=== PATIENT | female | born 1960 ===

== ENCOUNTER 2017-11-26 02:05 | Inpatient (IN) | payer MEDICARE, OTHER ==
[2017-11-26 02:26] VITALS: O2SAT 100
--- NOTE | 2017-11-26 02:40 | ED PDOC ---
Arrival/HPI - General Chief Complaint: Medical Clearance Time Seen by Provider: 11/26/17 02:32 Historian: Patient - History of Present Illness Narrative History of Present Illness (Text): 11/26/17 02:39 Angélica Catalan is a 56 year old female, whose past medical history includes bipolar disorder, diabetes, and hypothyroidism, who presents to the Emergency department complaining of stress. Patient states she has been feeling stress for the past 4 days. Patient regularly takes [place], Haldol, and Cogentin and is requesting a Haldol injection. During questioning, patient laughs inappropriately at times. Patient denies any suicidal ideation, homicidal ideation, fever, chills, chest pain, shortness of breath, nausea, vomiting, diarrhea, urinary symptoms, back pain, neck pain, headache, dizziness, or any other complaints. Time/Duration: < week (4 days) Symptom Onset: Gradual Symptom Course: Unchanged Activities at Onset: Light Context: Home Past Medical History - Provider Review Nursing Documentation Reviewed: Yes - Reproductive Menopause: Yes - Pulmonary Hx Respiratory Disorders: No - HEENT Hx HEENT Disorder: No - Renal Hx Renal Disorder: No - Endocrine/Metabolic Hx Diabetes Mellitus Type 2: Yes Hx Hypothyroidism: Yes - Hematological/Oncological Hx Blood Disorders: No - Integumentary Hx Dermatological Disorder: No - Musculoskeletal/Rheumatological Hx Musculoskeletal Disorders: No - Gastrointestinal Hx Gastrointestinal Disorders: No - Genitourinary/Gynecological Hx Genitourinary Disorders: No - Psychiatric Hx Depression: Yes Hx Substance Use: No - Surgical History Hx Cholecystectomy: Yes Family/Social History - Physician Review Nursing Documentation Reviewed: Yes Family/Social History: Unknown Family HX Smoking Status: Former Smoker Hx Alcohol Use: No Hx Substance Use: No Allergies/Home Meds Allergies/Adverse Reactions: Allergies tomato Allergy (Verified 11/26/17 02:20) RASH Home Medications: Home Meds Medication Instructions Recorded Confirmed Unobtainable 11/26/17 11/26/17 Review of Systems - Physician Review All systems were reviewed & negative as marked: Yes - Review of Systems Constitutional: Normal. absent: Fevers Eyes: Normal ENT: Normal Respiratory: Normal. absent: SOB, Cough Cardiovascular: Normal. absent: Chest Pain Gastrointestinal: Normal. absent: Abdominal Pain, Diarrhea, Nausea, Vomiting Genitourinary Female: Normal. absent: Dysuria, Frequency, Hematuria, Urine Output Changes Musculoskeletal: Normal. absent: Back Pain, Neck Pain Skin: Normal. absent: Rash Neurological: Normal. absent: Headache, Dizziness Endocrine: Normal Hemo/Lymphatic: Normal Psychiatric: Other (+) Physical Exam Vital Signs Reviewed: Yes Vital Signs Temp Pulse Resp BP Pulse Ox 11/26/17 02:25 98.1 F 60 17 160/87 H 100 Temperature: Afebrile Blood Pressure: Normal Pulse: Regular Respiratory Rate: Normal Appearance: Positive for: Well-Appearing, Non-Toxic, Comfortable Pain Distress: None Mental Status: Positive for: Alert and Oriented X 3 - Systems Exam Head: Present: Atraumatic, Normocephalic Extroacular Muscles: Present: EOMI Conjunctiva: Present: Normal Mouth: Present: Moist Mucous Membranes Neck: Present: Normal Range of Motion Respiratory/Chest: Present: Clear to Auscultation, Good Air Exchange. No: Respiratory Distress, Accessory Muscle Use Cardiovascular: Present: Regular Rate and Rhythm, Normal S1, S2. No: Murmurs Abdomen: Present: Normal Bowel Sounds. No: Tenderness, Distention, Peritoneal Signs Back: Present: Normal Inspection Upper Extremity: Present: Normal Inspection. No: Cyanosis, Edema Lower Extremity: Present: Normal Inspection. No: Edema Neurological: Present: GCS=15, CN II-XII Intact, Speech Normal Skin: Present: Warm, Dry, Normal Color. No: Rashes Psychiatric: Present: Alert, Oriented x 3, Normal Insight, Normal Concentration Medical Decision Making ED Course and Treatment: 11/26/17 02:40 Impression: 56 year old female complaining of stress, requesting Haldol injection. Plan: -- EKG -- Labs, alcohol level -- Urinalysis, urine drug screen -- Reassess and disposition Progress Notes: Reviewed EKG, sinus bradycardia at [address]-segment elevations or depressions, no T-wave inversions, normal intervals. 11/26/17 06:11 Pt was seen and evaluated by UZAIR Madden, who discussed case with psychiatrist professional application designer. Pt will be admitted to Behavioral Health for bipolar affective disorder under Dr. Thorpe's service. - Lab Interpretations Lab Results: 11/26/17 02:50 11/26/17 02:50 Lab Results 11/26/17 02:54: Urine Opiates Screen Negative, Urine Methadone Screen Negative, Ur Barbiturates Screen Negative, Ur Phencyclidine Scrn Negative, Ur Amphetamines Screen Negative, U Benzodiazepines Scrn Negative, U Oth Cocaine Metabols Negative, U Cannabinoids Screen Negative 11/26/17 02:50: Alcohol, Quantitative < 10 11/26/17 02:50: WBC 9.2, RBC 4.47, Hgb 13.7, Hct 40.9, MCV 91.5, MCH 30.6, MCHC 33.5, RDW 14.4, Plt Count 377, MPV 9.7 11/26/17 02:50: Sodium 142, Potassium 3.9, Chloride 102, Carbon Dioxide 27, Anion Gap 17, BUN 11, Creatinine 0.5 L, Est GFR ( Amer) > 60, Est GFR ( Non-Af Amer) > 60, Random Glucose 119 H, Calcium 10.2, Total Bilirubin 1.2, AST 39 H, ALT 50, Alkaline Phosphatase 98, Total Protein 8.5 H, Albumin 4.8, Globulin 3.8, Albumin/Globulin Ratio 1.3 I have reviewed the lab results: Yes - EKG Interpretation Interpreted by ED Physician: Yes Type: 12 lead EKG - Scribe Statement The provider has reviewed the documentation as recorded by the Bryant Solorzano Provider Scribe Attestation: All medical record entries made by the Jujuibe were at my direction and personally dictated by me. I have reviewed the chart and agree that the record accurately reflects my personal performance of the history, physical exam, medical decision making, and the department course for this patient. I have also personally directed, reviewed, and agree with the discharge instructions and disposition. Disposition/Present on Arrival - Present on Arrival Any Indicators Present on Arrival: No History of DVT/PE: No History of Uncontrolled Diabetes: No Urinary Catheter: No History of Decub. Ulcer: No History Surgical Site Infection Following: None - Disposition Have Diagnosis and Disposition been Completed?: Yes Diagnosis: Bipolar affective disorder Disposition: HOSPITALIZED Disposition Time: 06:17 Patient Plan: Admission Condition: STABLE Forms: [employer] (Indonesian)
[2017-11-26 03:36] LABS: HEMOGLOBIN 13.7 g/dL (12.0-16.0); MEAN CELL VOLUME 91.5 fl (80.0-105.0); MEAN CORPUSCULAR HEMOGLOBIN 30.6 pg (25.0-35.0); MEAN CORPUSCULAR HGB CONC 33.5 g/dl (31.0-37.0); MEAN PLATELET VOLUME 9.7 fl (7.0-11.0); RBC 4.47 10^6/uL (3.5-6.1); RED CELL DISTRIBUTION WIDTH 14.4 % (11.5-14.5); WHITE BLOOD COUNT 9.2 10^3/ul (4.5-11.0)
[2017-11-26 03:47] LABS: ALBUMIN 4.8 g/dL (3.0-4.8); ALT/SGPT 50 U/L (7-56); AST/SGOT 39 U/L (14-36); BLOOD UREA NITROGEN 11 mg/dL (7-21); CALCIUM 10.2 mg/dL (8.4-10.5); GFR AFRICAN-AMERICAN > 60; GFR NON-AFRICAN AMERICAN > 60
[2017-11-26 03:48] LABS: ALB/GLOB RATIO 1.3 (1.1-1.8)
[2017-11-26 04:04] LABS: BARBITURATES, UR NEGATIVE (NEGATIVE); BENZODIAZEPINES, UR NEGATIVE (NEGATIVE); OPIATES, UR NEGATIVE (NEGATIVE); PHENCYCLIDINE, UR NEGATIVE (NEGATIVE)
[2017-11-26 07:06] LABS: URINE BILIRUBIN NEGATIVE (NEGATIVE); URINE BLOOD TRACE-INTACT (NEGATIVE); URINE GLUCOSE (UA) NEGATIVE (NEGATIVE); URINE LEUKOCYTE ESTERASE MODERATE Leu/uL (NEGATIVE); URINE NITRATE NEGATIVE (NEGATIVE); URINE PROTEIN NEGATIVE mg/dL (<30 mg/dL); URINE UROBILINOGEN 0.2 E.U./dL (<1 E.U./dL)
[2017-11-26 07:16] LABS: URINE APPEARANCE SL CLOUDY (CLEAR); URINE COLOR YELLOW (YELLOW)
[2017-11-26 07:19] LABS: URINE BACTERIA RARE (NEG); URINE RBC 0 - 2 /hpf (0-2)
--- NOTE | 2017-11-26 08:36 | RAD ---
HISTORY: medical clearance COMPARISON: No prior. FINDINGS: LUNGS: No active pulmonary disease. PLEURA: No significant pleural effusion identified, no pneumothorax apparent. CARDIOVASCULAR: Normal. OSSEOUS STRUCTURES: No significant abnormalities. VISUALIZED UPPER ABDOMEN: Normal. OTHER FINDINGS: None. IMPRESSION: No active disease.
[2017-11-26 10:42] LABS: FREE T4 1.34 ng/dL (0.78-2.19)
--- NOTE | 2017-11-26 14:58 | PCM.BM ---
Treatment Plan Problems - Problems identified on initial assessmt ALTERED THOUGHT PROCESS Date Initiated: 11/26/17 Time Initiated: 14:00 Assessment reference: NA Status: Active Priority: 1 ALTERED SLEEP PATTERN Date Initiated: 11/26/17 Time Initiated: 14:00 Assessment reference: NA Status: Active Priority: 2 INEFFECTIVE COPING Date Initiated: 11/26/17 Time Initiated: 14:00 Assessment reference: NA Status: Active Priority: 3 Treatment assets and liabiliti Patient Assests: cooperative, ADL independent, cognitively intact Patient Liabilities: poor support system, medical problems, language/speech - Milieu Protocol Maintain good personal hygiene: every shift Encourage regular showers, every shift Remind patient to perform daily oral care, every shift Assist patient to perform ADL's Maintain personal safety: every shift Educate patient to report safety concerns to staff, every shift Monitor environment for contraband/sharps Medication safety: Monitor for expected outcome, potential side effects: every shift, Assess barriers to learning: every shift, Assess readiness for medication education: every shift Family Contact Family involvement: Patient does not wish Family/SO involvement Discharge/Continuing Care - Education Needs Education Needs: Patient Medication, Patient Diagnosis/Disease Process, Patient Coping Skills, Patient Community resources, Patient Activities of Daily Living, Patient Nutrition, Patient Health Practices/Safety, Patient Personal Hygiene/ Grooming, Patient Aftercare Safety Plan - Discharge Discharge Criteria: Tolerates medication w/o severe side effects, Free of paranoid thoughts, Free of agitation, Normal sleep pattern, Ability to care for self, No longer exhibiting s/s of withdrawal, Reduction of target symptoms Discharge to:: Home
--- NOTE | 2017-11-26 16:00 | PCM.PSYCH ---
Initial Psychiatric Evaluation - Initial Psychiatric Evaluation Type of Admission: Voluntary Legal Status: Capacity (pt has a capacity to sign consent for treatment) Chief Complaint (in patient's own words): "I am single mother, I have a dementia, I suffer from sleeping problems, I also have financial problems, I need to call [place], when I am not well I sing or dance" of note pt was disorganized, difficulties to stay focused, going and going, answers were not related to the questions being asked. Patient's Reaction to Hospitalization: pt was admitted for evaluation and stabilization of disorganized thoughts and behavior, pt also has manic symptoms, pt deemed to be in danger to self and others, required acute psychiatric care. History of Present Illness and Precipitating Events: This is a 56 years old female, multiple psychiatric admissions (more than 15), most recent was in [facility] in October 2017, pt who lives with her son and currently unemployed, came to the emergency room for psychiatric evaluation, pt most likely was noncompliant with medications, presented to be bizarre and disorganized, needed to have psych admission. pt was seen at the [facility] area with Medical student, pt is [place] speaking and this medical writer utilized translation system [id number] pt presented with acceptable personal hygiene, good ADLs, pt presented to be disorganized, was laughing out loud with no obvious reasons, answers were not related to questions being asked, pt also presented with circumstantial and tangential thought process, but denied v/a/t hallucinations. For example:"I am single mother, I have a dementia, I suffer from sleeping problems, I also have financial problems, I need to call [place], when I am not well I sing or dance " pt had difficulties to stay focused, circumstantial and tangential thought process. pt denied being abused. pt denied feeing depress, but seems to be in manic stage, reported to feel irritable. pt denied using drugs, denied smoking since 2010. Past Psychiatric h/[place]: [facility] [place] [facility] [place]. Chronic non compliant with follow up and meds Pt was referred screener on 10/22, they were unable to locate pt for demonstrating bizarre behavior in [place] [facility] [place] another call on [place]20 about Pt, but because she was not a harm to self or others she was not admitted tot he hospital. h/o of elopement from the hospital. Pt goes by several names Angélica Suarez, and has several listed [place] [facility] [place] report from pt's pharmacy pt was on the following meds [id number]: prescribe by , last refilled November 19, thirty days supply was given, two refills left [place] 300 mg 3 times a day Haldol 5 mg twice a day Benztropine 1 mg twice a pt said that she is on Haldol Injectable form, does not know when was the last injection, does not know the dose, as per pharmacy pt is not on haldol Dec, was contacted at [facility] outpatient [facility], but he was not available, no RNs available to talk, pt is very poor and unreliable historian. prescribed by Dr.Leslie Alfonso: Metformin extended release 500mg po bid Levemir 10 units am crestor 10mg po daily Levothyroxine 88mcg po daily Losartan 50mg po daily Medical h/o: DM Hypothyroidism HTN Family h/o: unknown 11/26/17 02:50 11/26/17 02:50 Lab Results 11/26/17 12:50: [place] < 0.2 L 11/26/17 06:56: Urine Color Yellow, Urine Appearance Sl cloudy, Urine pH 6.0, Ur Specific [place] 1.025, Urine Protein Negative, Urine Glucose (UA) Negative, Urine Ketones Negative, Urine Blood Trace-intact H, Urine Nitrate Negative, Urine Bilirubin Negative, Urine Urobilinogen 0.2, Ur Leukocyte Esterase Moderate H, Urine RBC 0 - 2, Urine WBC 2 - 5, Ur Epithelial Cells 1 - 3, Urine Bacteria Rare 11/26/17 03:00: Free T4 1.34, TSH 3rd Generation 3.16 11/26/17 02:54: Urine Opiates Screen Negative, Urine Methadone Screen Negative, Ur Barbiturates Screen Negative, Ur Phencyclidine Scrn Negative, Ur Amphetamines Screen Negative, U Benzodiazepines Scrn Negative, U Oth Cocaine Metabols Negative, U Cannabinoids Screen Negative 11/26/17 02:50: Alcohol, Quantitative < 10 11/26/17 02:50: WBC 9.2, RBC 4.47, Hgb 13.7, Hct 40.9, MCV 91.5, MCH 30.6, MCHC 33.5, RDW 14.4, Plt Count 377, MPV 9.7 11/26/17 02:50: Sodium 142, Potassium 3.9, Chloride 102, Carbon Dioxide 27, Anion Gap 17, BUN 11, Creatinine 0.5 L, Est GFR ( Amer) > 60, Est GFR ( Non-Af Amer) > 60, Random Glucose 119 H, Calcium 10.2, Total Bilirubin 1.2, AST 39 H, ALT 50, Alkaline Phosphatase 98, Total Protein 8.5 H, Albumin 4.8, Globulin 3.8, Albumin/Globulin Ratio 1.3 Vital Signs Temp Pulse Resp BP Pulse Ox 11/26/17 07:23 58 L 16 164/78 H 100 11/26/17 02:25 98.1 F 60 17 160/87 H 100 Current Medications: see hpi Past Psychiatric History - Past Psychiatric History Previous Treatment History: Inpatient Prior Professional Help: See HPI Prior Psychiatric Treatment: see HPI At what hospital: see HPI Duration: see HPI Nature of Treatment: see HPI Explanation of prior treatment: see HPI History of Abuse: see HPI History of ETOH/Drug Use: see HPI History of Family Illness: see HPI Pertinent Medical Hx (Current Medical&Sleep Prob, Allergies): Allergies Allergy/AdvReac Type Severity Reaction Status Date / Time tomato Allergy RASH Verified 11/26/17 02:20 Unobtainable 11/26/17 Review of Systems - Review of Systems Systems not reviewed;Unavailable: Acuity of Condition - EENT Eyes: As Per HPI Ears: As Per HPI Nose/Mouth/Throat: As Per HPI - Breasts Breasts: As Per HPI - Cardiovascular Cardiovascular: As Per HPI - Respiratory Respiratory: As Per HPI - Gastrointestinal Gastrointestinal: As Per HPI - Genitourinary Genitourinary: As Per HPI - Reproductive: Female Reproductive:Female: As Per HPI - Menstruation Menstruation: As Per HPI - Musculoskeletal Musculoskeletal: As Par HPI - Integumentary Integumentary: As Per HPI - Neurological Neurological: As Per HPI - Psychiatric Psychiatric: As Per HPI - Endocrine Endocrine: As Per HPI - Hematologic/Lymphatic Hematologic: As Per HPI Mental Status Examination - Personal Presentation Personal Presentation: Looks older than stated age - Affect Affect: Broad (labile) - Motor Activity Motor Activity: Calm - Reliability in Providing Information Reliability in Providing Information: Poor, due to alteration in thoughts, Poor , due to altered mood, Poor, due to cognitve impairment - Speech Speech: Disorganized, Tangential - Mood Mood: Euphoric - Formal Thought Process Formal Thought Process: Loosening of associations, Circumstantial - Obsessions/Compulsions Obsessions: None Compulsions: None - Cognitive Functions Orientation: Person, Place Sensorium: Alert Attention/Concentration: Easily distracted Abstract Thinking: [place] Estimate of Intelligence: Below average Judgement: Intact, as evidence by: Insight regarding need for hospitalization - Risk Risk: Self-mutilation, Diminished functioning - Strength & Assets Inventory Strength & Assets Inventory: Cooperative - Limitations Limitations: Other (noncompliance with meds and follow ups) DSM 5 DX - DSM 5 DSM 5 Diagnosis: schizoaffective, bipolar type - Recommended/Plan of Treatment Treatment Recommendations and Plan of Treatment: Milieu/structure/supportive therapy Milieu/structure/supportive therapy Medical consult will be called Supportive therapy, group therapy, individual therapy Haldol 10 mg by mouth twice a day for psychosis Cogentin 1 mg by mouth twice a day for possible EPS [place] 300 mg PO TID for mood stabilization Lithim level was low <0.3 most likely pt was noncompliant Trazodone 100 mg by mouth daily at bedtime for insomnia will continue all meds for medical issues SW consultation for discharge plan and social issues Family involvement Follow up on labs Will monitor closely Pt was educated about risk/benefits and alternatives of medications, coping strategies (safety plan, suicide prevention), relapse prevention, importance of follow up with psychiatrist and therapist, stay away from drugs/alcohol/smoking Projected ELOS: 7days Prognosis: guarded Discharge Plan and Discharge Criteria: Pt will be not depressed or manic, will be more hopeful, will be not psychotic or anxious, will be not having thoughts of harming self or others, will be tolerating medications well, will not have major side effects, will be able to function, will not pose threat to self or others. - Smoking Cessation Smoking Cessation Initiated: No Reason for not providing: denied smoking
--- NOTE | 2017-11-26 17:57 | CARD ---
APPROVED REPORT EKG Measurement Heart [id number] <Conclusion> Sinus bradycardia Otherwise normal ECG
[2017-11-27] MEDS: Levothyroxine 88 MCG TAB PO SCH (05:52)
[2017-11-27 08:24] LABS: BASO # 0.02 K/mm3 (0.0-2.0); BASO % 0.3 % (0.0-3.0); EOS # 0.2 (0.0-0.7); EOS % 2.7 % (1.5-5.0); GRAN # 4.08 (1.4-6.5); HEMOGLOBIN 12.5 g/dL (12.0-16.0); LYMPH # 2.1 (1.2-3.4); LYMPH % 31.8 % (22.0-35.0); MEAN CELL VOLUME 90.7 fl (80.0-105.0); MEAN CORPUSCULAR HEMOGLOBIN 30.6 pg (25.0-35.0); MEAN CORPUSCULAR HGB CONC 33.8 g/dl (31.0-37.0); MEAN PLATELET VOLUME 9.3 fl (7.0-11.0); MONO # 0.3 (0.1-0.6); MONO % 4.2 % (1.0-6.0); RBC 4.08 10^6/uL (3.5-6.1); RED CELL DISTRIBUTION WIDTH 14.4 % (11.5-14.5); WHITE BLOOD COUNT 6.7 10^3/ul (4.5-11.0)
[2017-11-27 08:30] LABS: LDL CHOLESTEROL 124 mg/dL (0-129)
[2017-11-27 08:35] LABS: ALB/GLOB RATIO 1.3 (1.1-1.8); ALBUMIN 4.2 g/dL (3.0-4.8); ALT/SGPT 44 U/L (7-56); AST/SGOT 29 U/L (14-36); BLOOD UREA NITROGEN 12 mg/dL (7-21); CALCIUM 9.6 mg/dL (8.4-10.5); GFR AFRICAN-AMERICAN > 60; GFR NON-AFRICAN AMERICAN > 60; HDL CHOLESTEROL 34 mg/dL (29-60)
--- NOTE | 2017-11-27 15:28 | CP.PCM.CON ---
<Fuentes Melton - Last Filed: 11/27/17 15:46> History of Present Illness - History of Present Illness History of Present Illness: Subjective: Patient is a 56 year old female with a past medical history of hypothyroidism, diabetes, hypertension, hyperlipidemia, and bipolar disorder who was admitted to the psych unit. The medicine was consulted to manage her medical conditions. Patient seen and examined at bedside. No acute events since admission. Patient is resting comfortably in bed. Admits to 5th digit left foot lesion. Denies fever, chills, chest pain, SOB, abdominal pain, N/V, diarrhea, constipation, and urinary symptoms. 12 point review of systems negative except as indicated in HPI. Past Medical Hx: Hypothyroidism, diabetes, HTN, hyperlipidemia Surgical Hx: cholecystectomy- 2002, Umbilical hernia repair- does not remember what year Allergies: NKDA, allergic to tomatoes- gets hives when she eats them Social: lives at home with her son, tobacco use quit in 2000, two 8 ounce glasses of alcohol on the weekend Family Hx: Mother had colon cancer at 83, father had diabetes at 75 from a heart attack Pharmacy: [facility] Medications: Home medications confirmed by Pharmacy- Metformin 500mg BID, Levemir 10 units once daily, Crestor 10mg once daily, Levothyroxine 88mcg once daily, Losartan 50mg daily Physical Examination: - Constitutional Appears: Non-toxic, No Acute Distress - Head Exam Head Exam: atraumatic, normocephalic - Eye Exam Eye Exam: Normal appearance, PERRL. absent: Scleral icterus - ENT Exam ENT Exam: Mucous Membranes Moist - Neck Exam Neck exam: Normal Inspection - Respiratory Exam Respiratory Exam: Normal Breathing Pattern - Cardiovascular Exam Cardiovascular Exam: +S1, +S2. absent: Gallop, JVD - GI/Abdominal Exam GI & Abdominal Exam: Normal Bowel Sounds, absent: Distended, Guarding, Pulsatile Mass, Rebound, Rigid - Extremities Exam Extremities exam: left foot 5th digit coagulated subcutaneous blood- will self resolve, Negative for: calf tenderness - Neurological Exam Neurological exam: Patient is awake, alert, responds to verbal stimuli, answers questions appropriately, follows commands, and moves extremities past midline - Psychiatric Exam Psychiatric exam: Normal Affect, Normal Mood - Skin Skin Exam: warm and dry Assessment and Plan: Patient is a 56 year old female with a past medical history of diabetes, hypothyroidism, hypertension, and hyperlipidemia who was admitted to the to manage patients chronic medical conditions. Schizoaffective Disorder; Bipolar type - management as per psychiatry Hx of Diabetes - Monitor blood glucose ACHS - Continue on Metformin - insulin sliding scale - do not continue home levemir at this time because patient is not fully compliant at home Hx of Hypertension - stop vistril, start home losartan - Monitor BP Hx of Hypothyroidism - Continue with Synthroid - TSH levels ordered and are within normal limits Hx of Hyperlipidemia - lipid profile reviewed and appreciated- within normal limits - patient takes crestor at home- not available in hospital- spoke with pharmacist- substitute with lipitor 40mg [facility] Medicine team will sign off at this time. Please reconsult if needed. Thank you for the opportunity to participate in the care of this patient. Patient seen, case discussed with, and plan approved by attending physician, Dr. Evans. Past Patient History - Past Social History Smoking Status: Former Smoker - CARDIAC Hx Hypercholesterolemia: Yes Hx Hypertension: Yes - PULMONARY Hx Respiratory Disorders: No - NEUROLOGICAL Hx Neurological Disorder: No Other/Comment: back pain t-3/t-4 - HEENT Hx HEENT Problems: No - RENAL Hx Chronic Kidney Disease: No - ENDOCRINE/METABOLIC Hx Diabetes Mellitus Type 2: Yes Hx Hypothyroidism: Yes - HEMATOLOGICAL/ONCOLOGICAL Hx Blood Disorders: No - INTEGUMENTARY Hx Dermatological Problems: No - MUSCULOSKELETAL/RHEUMATOLOGICAL Hx Musculoskeletal Disorders: No - GASTROINTESTINAL Hx Gastrointestinal Disorders: No - GENITOURINARY/GYNECOLOGICAL Hx Genitourinary Disorders: No - PSYCHIATRIC Hx Substance Use: No - SURGICAL HISTORY Hx Surgeries: No Hx Cholecystectomy: Yes - ANESTHESIA Hx Anesthesia: No Meds Allergies/Adverse Reactions: Allergies Allergy/AdvReac Type Severity Reaction Status Date / Time tomato Allergy RASH Verified 11/26/17 02:20 - Medications Medications: Current Medications Benztropine Mesylate (Cogentin) 1 mg PO BID [facility] Last Admin: 11/27/17 07:01 Dose: 1 mg Haloperidol (Haldol) 10 mg PO BID [facility] PRN Reason: Protocol Last Admin: 11/27/17 07:01 Dose: 10 mg Hydroxyzine Pamoate (Vistaril) 25 mg PO TID [facility] PRN Reason: Protocol Last Admin: 11/27/17 13:19 Dose: 25 mg Levothyroxine Sodium (Synthroid) 88 mcg PO 0600 [facility] Last Admin: 11/27/17 05:52 Dose: 88 mcg [place] Carbonate ([place] Carbonate 300mg) 300 mg PO DAILY [facility] Last Admin: 11/27/17 07:02 Dose: 300 mg [place] Carbonate ([place] Carbonate 300mg) 600 mg PO HS [facility] Last Admin: 11/26/17 21:02 Dose: 600 mg Metformin HCl (Glucophage) 500 mg PO BID [facility] Last Admin: 11/27/17 09:50 Dose: 500 mg Trazodone HCl (Desyrel) 100 mg PO HS PRN PRN Reason: Insomnia Last Admin: 11/26/17 21:02 Dose: 100 mg Results - Vital Signs Recent Vital Signs: Last Vital Signs Temp 98.1 F 11/26/17 02:25 Pulse 68 11/26/17 16:00 Resp 16 11/26/17 07:23 BP 133/67 11/26/17 16:00 Pulse Ox 100 11/26/17 07:23 - Labs Result Diagrams: 11/27/17 07:56 11/27/17 08:00 Labs: Laboratory Results - last 24 hr 11/26/17 11/26/17 11/27/17 17:18 21:40 07:15 WBC RBC Hgb Hct MCV MCH MCHC RDW Plt Count MPV Gran % Lymph % (Auto) [place] % (Auto) Eos % (Auto) Baso % (Auto) Gran # Lymph # [place] # Eos # Baso # Sodium Potassium Chloride Carbon Dioxide Anion Gap BUN Creatinine Est GFR ( Amer) Est GFR (Non-Af Amer) POC Glucose (mg/dL) 129 H 147 H 122 H Random Glucose Calcium Total Bilirubin AST ALT Alkaline Phosphatase Total Protein Albumin Globulin Albumin/Globulin Ratio Triglycerides Cholesterol LDL Cholesterol Direct HDL Cholesterol TSH 3rd Generation 11/27/17 11/27/17 11/27/17 07:56 07:57 08:00 WBC 6.7 D RBC 4.08 Hgb 12.5 Hct 37.0 MCV 90.7 MCH 30.6 MCHC 33.8 RDW 14.4 Plt Count 305 MPV 9.3 Gran % 61.0 Lymph % (Auto) 31.8 [place] % (Auto) 4.2 Eos % (Auto) 2.7 Baso % (Auto) 0.3 Gran # 4.08 Lymph # 2.1 [place] # 0.3 Eos # 0.2 Baso # 0.02 Sodium 136 Potassium 3.7 Chloride 103 Carbon Dioxide 23 Anion Gap 14 BUN 12 Creatinine 0.5 L Est GFR ( Amer) > 60 Est GFR (Non-Af Amer) > 60 POC Glucose (mg/dL) Random Glucose 111 H Calcium 9.6 Total Bilirubin 1.1 AST 29 ALT 44 Alkaline Phosphatase 88 Total Protein 7.4 Albumin 4.2 Globulin 3.2 Albumin/Globulin Ratio 1.3 Triglycerides 100 Cholesterol 167 LDL Cholesterol Direct 124 HDL Cholesterol 34 TSH 3rd Generation 2.67 <Dave Evans - Last Filed: 11/27/17 16:26> Meds - Medications Medications: Current Medications Atorvastatin Calcium (Lipitor) 40 mg PO DIN [facility] Benztropine Mesylate (Cogentin) 1 mg PO BID [facility] Last Admin: 11/27/17 07:01 Dose: 1 mg Gabapentin (Neurontin) 300 mg PO TID [facility] PRN Reason: Protocol Haloperidol (Haldol) 10 mg PO BID [facility] PRN Reason: Protocol Last Admin: 11/27/17 07:01 Dose: 10 mg Insulin Human Lispro (Humalog Med) 0 units SC ACHS [facility] PRN Reason: Protocol Levothyroxine Sodium (Synthroid) 88 mcg PO 0600 [facility] Last Admin: 11/27/17 05:52 Dose: 88 mcg [place] Carbonate ([place] Carbonate 300mg) 300 mg PO DAILY [facility] Last Admin: 11/27/17 07:02 Dose: 300 mg [place] Carbonate ([place] Carbonate 300mg) 600 mg PO HS [facility] Last Admin: 11/26/17 21:02 Dose: 600 mg Losartan Potassium (Cozaar) 50 mg PO DAILY [facility] Metformin HCl (Glucophage) 500 mg PO BID [facility] Last Admin: 11/27/17 09:50 Dose: 500 mg Trazodone HCl (Desyrel) 100 mg PO HS PRN PRN Reason: Insomnia Last Admin: 11/26/17 21:02 Dose: 100 mg Results - Vital Signs Recent Vital Signs: Last Vital Signs Temp 98.1 F 11/26/17 02:25 Pulse 68 11/26/17 16:00 Resp 16 11/26/17 07:23 BP 133/67 11/26/17 16:00 Pulse Ox 100 11/26/17 07:23 - Labs Result Diagrams: 11/27/17 07:56 11/27/17 08:00 Labs: Laboratory Results - last 24 hr 11/26/17 11/26/17 11/27/17 17:18 21:40 07:15 WBC RBC Hgb Hct MCV MCH MCHC RDW Plt Count MPV Gran % Lymph % (Auto) [place] % (Auto) Eos % (Auto) Baso % (Auto) Gran # Lymph # [place] # Eos # Baso # Sodium Potassium Chloride Carbon Dioxide Anion Gap BUN Creatinine Est GFR ( Amer) Est GFR (Non-Af Amer) POC Glucose (mg/dL) 129 H 147 H 122 H Random Glucose Calcium Total Bilirubin AST ALT Alkaline Phosphatase Total Protein Albumin Globulin Albumin/Globulin Ratio Triglycerides Cholesterol LDL Cholesterol Direct HDL Cholesterol TSH 3rd Generation 11/27/17 11/27/17 11/27/17 07:56 07:57 08:00 WBC 6.7 D RBC 4.08 Hgb 12.5 Hct 37.0 MCV 90.7 MCH 30.6 MCHC 33.8 RDW 14.4 Plt Count 305 MPV 9.3 Gran % 61.0 Lymph % (Auto) 31.8 [place] % (Auto) 4.2 Eos % (Auto) 2.7 Baso % (Auto) 0.3 Gran # 4.08 Lymph # 2.1 [place] # 0.3 Eos # 0.2 Baso # 0.02 Sodium 136 Potassium 3.7 Chloride 103 Carbon Dioxide 23 Anion Gap 14 BUN 12 Creatinine 0.5 L Est GFR ( Amer) > 60 Est GFR (Non-Af Amer) > 60 POC Glucose (mg/dL) Random Glucose 111 H Calcium 9.6 Total Bilirubin 1.1 AST 29 ALT 44 Alkaline Phosphatase 88 Total Protein 7.4 Albumin 4.2 Globulin 3.2 Albumin/Globulin Ratio 1.3 Triglycerides 100 Cholesterol 167 LDL Cholesterol Direct 124 HDL Cholesterol 34 TSH 3rd Generation 2.67 Attending/Attestation - Attestation I have personally seen and examined this patient.: Yes I have fully participated in the care of the patient.: Yes I have reviewed all pertinent clinical information: Yes Notes (Text): 11/27/17 16:24 Patient was seen and examined with medical science liaison. Agreed with resident assessment and plan. 56 yrs old male with HTN,NIDDM and hyperlipidemia is admitted to Psychiatry floor with depression. She is stable medically, continue current medications for DM,HTN and hypothyroidism. There is no active medical issue, we will sign off. Management plan was discussed in detail with patient, need reinforcement. Education was provided.
--- NOTE | 2017-11-27 16:02 | PCM.PYCHPN ---
Psychiatric Progress Note - Psychiatric Progress Note Patient seen today, length of contact: 30min Patient Chief Complaint: " is nasty name..." Problems Identified/Issues Discussed: Suicide/ homicide prevention, past psychiatric h/o, current psychiatric symptoms , medical problems, risk/benefits and alternatives of medications, medications compliance, coping strategies, substance abuse h/o, relapse prevention, importance of follow up with psychiatrist and therapist, discharge plan. Medical Problems: DM Hypothyroidism HTN ?diabetic neuropathy will call podiatry consult Diagnostic Results: 11/27/17 07:56 11/27/17 08:00 Lab Results 11/27/17 08:00: Sodium 136, Potassium 3.7, Chloride 103, Carbon Dioxide 23, Anion Gap 14, BUN 12, Creatinine 0.5 L, Est GFR ( Amer) > 60, Est GFR ( Non-Af Amer) > 60, Random Glucose 111 H, Calcium 9.6, Total Bilirubin 1.1, AST 29, ALT 44, Alkaline Phosphatase 88, Total Protein 7.4, Albumin 4.2, Globulin 3.2, Albumin/Globulin Ratio 1.3, Triglycerides 100, Cholesterol 167, LDL Cholesterol Direct 124, HDL Cholesterol 34 11/27/17 07:57: TSH 3rd Generation 2.67 11/27/17 07:56: WBC 6.7 D, RBC 4.08, Hgb 12.5, Hct 37.0, MCV 90.7, MCH 30.6, MCHC 33.8, RDW 14.4, Plt Count 305, MPV 9.3, Gran % 61.0, Lymph % (Auto) 31.8, [place] % (Auto) 4.2, Eos % (Auto) 2.7, Baso % (Auto) 0.3, Gran # 4.08, Lymph # 2.1 , [place] # 0.3, Eos # 0.2, Baso # 0.02 11/27/17 07:15: POC Glucose (mg/dL) 122 H 11/26/17 21:40: POC Glucose (mg/dL) 147 H 11/26/17 17:18: POC Glucose (mg/dL) 129 H 11/26/17 12:50: [place] < 0.2 L 11/26/17 06:56: Urine Color Yellow, Urine Appearance Sl cloudy, Urine pH 6.0, Ur Specific [place] 1.025, Urine Protein Negative, Urine Glucose (UA) Negative, Urine Ketones Negative, Urine Blood Trace-intact H, Urine Nitrate Negative, Urine Bilirubin Negative, Urine Urobilinogen 0.2, Ur Leukocyte Esterase Moderate H, Urine RBC 0 - 2, Urine WBC 2 - 5, Ur Epithelial Cells 1 - 3, Urine Bacteria Rare 11/26/17 03:00: RPR Nonreactive 11/26/17 03:00: Free T4 1.34, TSH 3rd Generation 3.16 11/26/17 02:54: Urine Opiates Screen Negative, Urine Methadone Screen Negative, Ur Barbiturates Screen Negative, Ur Phencyclidine Scrn Negative, Ur Amphetamines Screen Negative, U Benzodiazepines Scrn Negative, U Oth Cocaine Metabols Negative, U Cannabinoids Screen Negative 11/26/17 02:50: Alcohol, Quantitative < 10 11/26/17 02:50: WBC 9.2, RBC 4.47, Hgb 13.7, Hct 40.9, MCV 91.5, MCH 30.6, MCHC 33.5, RDW 14.4, Plt Count 377, MPV 9.7 11/26/17 02:50: Sodium 142, Potassium 3.9, Chloride 102, Carbon Dioxide 27, Anion Gap 17, BUN 11, Creatinine 0.5 L, Est GFR ( Amer) > 60, Est GFR ( Non-Af Amer) > 60, Random Glucose 119 H, Calcium 10.2, Total Bilirubin 1.2, AST 39 H, ALT 50, Alkaline Phosphatase 98, Total Protein 8.5 H, Albumin 4.8, Globulin 3.8, Albumin/Globulin Ratio 1.3 Vital Signs Temp Pulse Resp BP Pulse Ox 11/26/17 16:00 68 133/67 11/26/17 07:23 58 L 16 164/78 H 100 11/26/17 02:25 98.1 F 60 17 160/87 H 100 DSM 5 Symptoms Update: This is a 56 years old female, multiple psychiatric admissions (more than 15), most recent was in [facility] in October 2017, pt who lives with her son and currently unemployed, came to the emergency room for psychiatric evaluation, pt most likely was noncompliant with medications, presented to be bizarre and disorganized, needed to have psych admission. pt was seen today at tx team meeting. pt has some improvement with her presentation, but still disorganized, psychotic , smiling and laughing inappropriately. answers were not related to questions being asked, pt also presented with circumstantial and tangential thought process, but denied v/a/t hallucinations. pt had difficulties to stay focused, circumstantial and tangential thought process. Pt goes by several names Angélica CatalanMarlynNeno, and has several listed [place] [facility] [place] per report from pt's pharmacy pt was on the following meds [id number]: prescribe by , last refilled November 19, thirty days supply was given, two refills left [place] 300 mg 3 times a day Haldol 5 mg twice a day Benztropine 1 mg twice a Haldol [place] 100mg IM last dose was "two-three days ago" as per at [facility] clinic, confirmed today 11/27/[address]Leslie Alfonso: Metformin extended release 500mg po bid Levemir 10 units am crestor 10mg po daily Levothyroxine 88mcg po daily Losartan 50mg po daily pt tolerated meds well, no side effects observed or reported, AIMS 0, no EPS. Impression: schizoaffective disorder, bipolar type Medication Change: Yes (neurontin added, all meds resumed) Medical Record Reviewed: Yes Consults ordered or reviewed: medical consult podiatry consult was called Mental Status Examination - Cognitive Function Orientation: Person, Place Memory: Impaired Attention: Poor Concentration: Poor Association: Loose Fund of Knowledge: Poor - Mood Mood: Euphoric - Affect Affect: Broad (labile) - Speech Speech: Pressured - Formal Thought Process Formal Thought Process: Loosening of associations, Circumstantial - Suicidal Ideation Suicidal Ideation: No - Homicidal Ideation Homicidal Ideation: No Goal/Treatment Plan - Goal/Treatment Plan Need for Continued Stay: Remain at risks for inpatient hospitalization, Severe depression anxiety, Discharge may exacerbated symptoms, Severe functional impairment Progress Toward Problem(s) and Goals/Treatment Plan: Milieu/structure/supportive therapy Milieu/structure/supportive therapy Medical consult will be called Supportive therapy, group therapy, individual therapy Haldol 10 mg by mouth twice a day for psychosis Cogentin 1 mg by mouth twice a day for possible EPS [place] 300 mg PO am and 600mg hs for mood stabilization Lithim level was low <0.3 most likely pt was noncompliant Trazodone 100 mg by mouth daily at bedtime for insomnia neurontin 300mg po tid for diabetic neuropathy and mood stabilization will continue all meds for medical issues SW consultation for discharge plan and social issues Family involvement Follow up on labs Will monitor closely Pt was educated about risk/benefits and alternatives of medications, coping strategies (safety plan, suicide prevention), relapse prevention, importance of follow up with psychiatrist and therapist, stay away from drugs/alcohol/smoking Estimated Date of D/C: 12/04/17
[2017-11-27] MEDS: Insulin Lispro (humaLOG) MEDIUM Coverage SC SCH ×2 (18:14→23:00)
[2017-11-27] MEDS ORDERED: Divalproex 250 mg DR (BID formulation) PO ONE (22:25)
--- NOTE | 2017-11-28 01:53 | CON ---
DATE: HISTORY OF PRESENT ILLNESS: A 56-year-old female seen on the psychiatric unit with chief complaint of painful preulcerative hyperkeratotic lesions on both feet. PAST MEDICAL HISTORY: Patient's medical history is significant for bipolar disorder, hypertension, hypothyroidism, hyperlipidemia, and [id number] diabetes with peripheral neuropathy. PAST SURGICAL HISTORY: Includes ____ hernial repair, cholecystectomy. ALLERGIES: PATIENT HAS NO KNOWN DRUG ALLERGIES. SOCIAL HISTORY: Patient was a former smoker, quit many years ago, described herself as a social drinker with no illicit drug use, lives at home with her son. FAMILY HISTORY: Remarkable for diabetes and colon cancer. HOME MEDICATIONS: Noted in [facility]. LABORATORY FINDINGS: Reveal a white count 6.7, hemoglobin of 12.5, hematocrit of 37, platelet count of 305. OBJECTIVE VITAL SIGNS: Reveal temperature of 98.1, pulse rate of 58, blood pressure of 133/67, respiratory rate of 16. EXTREMITIES: Palpable pedal pulses noted bilaterally. Patient is unable to detect 5.07 g monofilament wire testing bilaterally. Capillary filling time is within normal limits. Lower extremity skin ____, shining, discolored, all nail plates are noted to be elongated and dystrophic with severe subungual fungal debris. There are noted to be preulcerative hyperkeratotic lesions, 1 and 5 as well as on the distal plantar aspect of the fifth digit. There is petechiae present indicative of preulcerative lesions. There are no open wounds noted. ASSESSMENT: Preulcerative hyperkeratosis bilaterally, diabetes with peripheral neuropathy. PLAN: Patient was educated on the pedal risks associated with pedal soft treatment and diabetes. Patient was told to never go barefoot inside or outside of her home except when bathing and sleeping. Excisional debridement was performed on all nail plates and hyperkeratotic lesions. Kd Zelaya DPM
[2017-11-28] MEDS: Levothyroxine 88 MCG TAB PO SCH (06:11)
[2017-11-28 07:30] LABS: HDL CHOLESTEROL 34 mg/dL (29-60)
[2017-11-28 07:41] LABS: LDL CHOLESTEROL 108 mg/dL (0-129)
[2017-11-28] MEDS: Insulin Lispro (humaLOG) MEDIUM Coverage SC SCH ×4 (08:11→22:00)
--- NOTE | 2017-11-28 10:17 | PCM.PYCHPN ---
Psychiatric Progress Note - Psychiatric Progress Note Patient seen today, length of contact: 25 min Problems Identified/Issues Discussed: I reviewed assessment and recent notes. I met with patient in the hallway. She is elevated and impulsive with pressured speech. It is difficult to maintain a goal directed interview due to her disorganization and irritation. She is indiscriminantly talkative on the unit. Thought process is tangential and she requires some redirection to remain focused. Nonetheless patient is oriented x3. She denies pain or side effects. Doesn't appear to be in physical distress. Patient denies having any hallucinations and she doesn't appear to be responding to internal stimuli. I agree with staff notes which indicate that patient has been labile, argumentative and illogical. Seen singing and dancing on the unit. Required Depakote 250 mg and Ativan 1 mg last night for manic behaviors with minimal effect, she only slept from 3 am to 6 am. Diagnostic Results: Schizoaffective Disorder Medication Change: Yes (started depakote) Medical Record Reviewed: Yes Mental Status Examination - Cognitive Function Orientation: Person, Place Memory: Impaired Attention: Poor Concentration: Poor Association: Loose Fund of Knowledge: Poor - Mood Mood: Euphoric - Affect Affect: Broad (labile) - Speech Speech: Pressured - Formal Thought Process Formal Thought Process: Loosening of associations, Flight of ideas, Circumstantial - Suicidal Ideation Suicidal Ideation: No - Homicidal Ideation Homicidal Ideation: No Goal/Treatment Plan - Goal/Treatment Plan Need for Continued Stay: Remain at risks for inpatient hospitalization, Severe depression anxiety, Discharge may exacerbated symptoms, Severe functional impairment Progress Toward Problem(s) and Goals/Treatment Plan: * c/w current tx and plan * Haldol 10 mg po bid with cogentin 1 mg po bid, to give Haldol 5 mg IM if that is patient's preference. * Neurontin 300 mg TID * [place] 300/600. [place] level noted below, will check another level tomorrow AM. 11/26/17 12:50 [place] < 0.2 L * Trazodone 100 mg HS * Initiate depakote 500/500 on 11/28/17 * No new labs thus far * Vitals reviewed and noted below: 11/26/17 11/26/17 11/26/17 02:25 07:23 16:00 Temperature 98.1 F Pulse Rate 60 58 L 68 Respiratory 17 16 Rate Blood Pressure 160/87 H 164/78 H 133/67 Estimated Date of D/C: 12/04/17
[2017-11-29] MEDS: Levothyroxine 88 MCG TAB PO SCH (05:39)
[2017-11-29] MEDS: Insulin Lispro (humaLOG) MEDIUM Coverage SC SCH ×4 (08:21→21:32)
--- NOTE | 2017-11-29 09:48 | PCM.PYCHPN ---
Psychiatric Progress Note - Psychiatric Progress Note Patient seen today, length of contact: 25 min Problems Identified/Issues Discussed: I reviewed recent notes and met with patient at bedside. Patient has been a little more manageable since yesterday, possibly secondary to the initiation of standing depakote. I interview patient at bedside, she seems calmer and more focused though she still has a tendency to ramble quickly and go off on tangents. She still requires some redirection to respond relevantly and succinctly to questioning. Patient is thankful and wishes me a good day. Remains oriented x3. Patient denies pain or side effects. She slept better last night but still only about 5 hours. Patient denies having any hallucinations and doesn't appear to responding to internal stimuli. Patient admitted that yesterday she believed one of the patients was her ex- though knows this isn't true. Staff notes indicate that patient has been talkative, rude and labile on the unit. Frequently pacing and requires redirection. But as indicated above, patient's behavior improved during the day yesterday, notably more cooperative and manageable. Overall her behavior still remains unpredictable. Diagnostic Results: Schizoaffective Disorder Medication Change: Yes (started depakote on 11/28/17) Medical Record Reviewed: Yes Mental Status Examination - Cognitive Function Orientation: Person, Place Memory: Impaired Attention: Poor Concentration: Poor Association: Loose Fund of Knowledge: Poor - Mood Mood: Euphoric - Affect Affect: Broad (labile) - Speech Speech: Pressured (some improvement) - Formal Thought Process Formal Thought Process: Delusions (Yesterday believed one of the other patients was her exhusband), Loosening of associations (still has a tendency to ramble quickly and go off on tangents), Flight of ideas, Circumstantial - Suicidal Ideation Suicidal Ideation: No - Homicidal Ideation Homicidal Ideation: No Goal/Treatment Plan - Goal/Treatment Plan Need for Continued Stay: Remain at risks for inpatient hospitalization, Severe depression anxiety, Discharge may exacerbated symptoms, Severe functional impairment Progress Toward Problem(s) and Goals/Treatment Plan: * c/w current tx and plan * Haldol 10 mg po bid with cogentin 1 mg po bid, to give Haldol 5 mg IM if that is patient's preference. Appreciate nursing collaboration. * Neurontin 300 mg TID * [place] 300/600. [place] levels noted directly below: 11/26/17 11/28/17 12:50 11:00 [place] < 0.2 L 0.8 * Trazodone 100 mg HS * Continue depakote 500/500, initiated on 11/28/17 * No other weekend labs thus far * Vitals reviewed and noted below: 11/26/17 11/26/17 11/26/17 02:25 07:23 16:00 Temperature 98.1 F Pulse Rate 60 58 L 68 Respiratory 17 16 Rate Blood Pressure 160/87 H 164/78 H 133/67 11/28/17 08:08 Temperature Pulse Rate 73 Respiratory Rate Blood Pressure 137/66 Estimated Date of D/C: 12/04/17
[2017-11-30] MEDS: Levothyroxine 88 MCG TAB PO SCH (06:18)
[2017-11-30] MEDS: Insulin Lispro (humaLOG) MEDIUM Coverage SC SCH ×4 (08:08→23:49)
--- NOTE | 2017-11-30 15:06 | PCM.PYCHPN ---
Psychiatric Progress Note - Psychiatric Progress Note Patient seen today, length of contact: 30min Patient Chief Complaint: "I am fine...' Problems Identified/Issues Discussed: Suicide/ homicide prevention, past psychiatric h/o, current psychiatric symptoms , medical problems, risk/benefits and alternatives of medications, medications compliance, coping strategies, substance abuse h/o, relapse prevention, importance of follow up with psychiatrist and therapist, discharge plan. Medical Problems: DM Hypothyroidism HTN ?diabetic neuropathy will call podiatry consult Diagnostic Results: 11/27/17 07:56 11/27/17 08:00 Lab Results 11/27/17 08:00: Sodium 136, Potassium 3.7, Chloride 103, Carbon Dioxide 23, Anion Gap 14, BUN 12, Creatinine 0.5 L, Est GFR ( Amer) > 60, Est GFR ( Non-Af Amer) > 60, Random Glucose 111 H, Calcium 9.6, Total Bilirubin 1.1, AST 29, ALT 44, Alkaline Phosphatase 88, Total Protein 7.4, Albumin 4.2, Globulin 3.2, Albumin/Globulin Ratio 1.3, Triglycerides 100, Cholesterol 167, LDL Cholesterol Direct 124, HDL Cholesterol 34 11/27/17 07:57: TSH 3rd Generation 2.67 11/27/17 07:56: WBC 6.7 D, RBC 4.08, Hgb 12.5, Hct 37.0, MCV 90.7, MCH 30.6, MCHC 33.8, RDW 14.4, Plt Count 305, MPV 9.3, Gran % 61.0, Lymph % (Auto) 31.8, [place] % (Auto) 4.2, Eos % (Auto) 2.7, Baso % (Auto) 0.3, Gran # 4.08, Lymph # 2.1 , [place] # 0.3, Eos # 0.2, Baso # 0.02 11/27/17 07:15: POC Glucose (mg/dL) 122 H 11/26/17 21:40: POC Glucose (mg/dL) 147 H 11/26/17 17:18: POC Glucose (mg/dL) 129 H 11/26/17 12:50: [place] < 0.2 L 11/26/17 06:56: Urine Color Yellow, Urine Appearance Sl cloudy, Urine pH 6.0, Ur Specific [place] 1.025, Urine Protein Negative, Urine Glucose (UA) Negative, Urine Ketones Negative, Urine Blood Trace-intact H, Urine Nitrate Negative, Urine Bilirubin Negative, Urine Urobilinogen 0.2, Ur Leukocyte Esterase Moderate H, Urine RBC 0 - 2, Urine WBC 2 - 5, Ur Epithelial Cells 1 - 3, Urine Bacteria Rare 11/26/17 03:00: RPR Nonreactive 11/26/17 03:00: Free T4 1.34, TSH 3rd Generation 3.16 11/26/17 02:54: Urine Opiates Screen Negative, Urine Methadone Screen Negative, Ur Barbiturates Screen Negative, Ur Phencyclidine Scrn Negative, Ur Amphetamines Screen Negative, U Benzodiazepines Scrn Negative, U Oth Cocaine Metabols Negative, U Cannabinoids Screen Negative 11/26/17 02:50: Alcohol, Quantitative < 10 11/26/17 02:50: WBC 9.2, RBC 4.47, Hgb 13.7, Hct 40.9, MCV 91.5, MCH 30.6, MCHC 33.5, RDW 14.4, Plt Count 377, MPV 9.7 11/26/17 02:50: Sodium 142, Potassium 3.9, Chloride 102, Carbon Dioxide 27, Anion Gap 17, BUN 11, Creatinine 0.5 L, Est GFR ( Amer) > 60, Est GFR ( Non-Af Amer) > 60, Random Glucose 119 H, Calcium 10.2, Total Bilirubin 1.2, AST 39 H, ALT 50, Alkaline Phosphatase 98, Total Protein 8.5 H, Albumin 4.8, Globulin 3.8, Albumin/Globulin Ratio 1.3 Vital Signs Temp Pulse Resp BP Pulse Ox 11/26/17 16:00 68 133/67 11/26/17 07:23 58 L 16 164/78 H 100 11/26/17 02:25 98.1 F 60 17 160/87 H 100 DSM 5 Symptoms Update: This is a 56 years old female, multiple psychiatric admissions (more than 15), most recent was in [facility] in October 2017, pt who lives with her son and currently unemployed, came to the emergency room for psychiatric evaluation, pt most likely was noncompliant with medications, presented to be bizarre and disorganized, needed to have psych admission. pt was seen today at tx team meeting, utilized translation line [place] [id number]. pt has some improvement with her presentation, but still disorganized, psychotic , smiling and laughing inappropriately. answers were not related to questions being asked, pt also presented with circumstantial and tangential thought process, but denied v/a/t hallucinations. pt had difficulties to stay focused, circumstantial and tangential thought process. as per report pt was manic, depakote was added by . pt tolerated meds well, no side effects observed or reported, AIMS 0, no EPS. Impression: schizoaffective disorder, bipolar type Medication Change: Yes (started depakote on 11/28/17) Medical Record Reviewed: Yes Consults ordered or reviewed: medical consult podiatry consult was called Mental Status Examination - Cognitive Function Orientation: Person, Place Memory: Impaired Attention: Poor Concentration: Poor Association: Loose Fund of Knowledge: Poor - Mood Mood: Euphoric - Affect Affect: Broad (labile) - Speech Speech: Pressured (some improvement) - Formal Thought Process Formal Thought Process: Delusions (Yesterday believed one of the other patients was her exhusband), Loosening of associations (still has a tendency to ramble quickly and go off on tangents), Flight of ideas, Circumstantial - Suicidal Ideation Suicidal Ideation: No - Homicidal Ideation Homicidal Ideation: No Goal/Treatment Plan - Goal/Treatment Plan Need for Continued Stay: Remain at risks for inpatient hospitalization, Severe depression anxiety, Discharge may exacerbated symptoms, Severe functional impairment Progress Toward Problem(s) and Goals/Treatment Plan: Milieu/structure/supportive therapy Milieu/structure/supportive therapy Medical consult will be called Supportive therapy, group therapy, individual therapy Haldol 10 mg by mouth twice a day for psychosis Cogentin 1 mg by mouth twice a day for possible EPS [place] 300 mg PO am and 600mg hs for mood stabilization Lithim level was low <0.3 most likely pt was noncompliant depakote 500mg po bid for mood stabilization Trazodone 100 mg by mouth daily at bedtime for insomnia neurontin 300mg po tid for diabetic neuropathy and mood stabilization will continue all meds for medical issues SW consultation for discharge plan and social issues Family involvement Follow up on labs Will monitor closely Pt was educated about risk/benefits and alternatives of medications, coping strategies (safety plan, suicide prevention), relapse prevention, importance of follow up with psychiatrist and therapist, stay away from drugs/alcohol/smoking Estimated Date of D/C: 12/04/17
[2017-12-01] MEDS: Levothyroxine 88 MCG TAB PO SCH (05:11)
[2017-12-01] MEDS: Insulin Lispro (humaLOG) MEDIUM Coverage SC SCH ×4 (09:39→22:00)
--- NOTE | 2017-12-01 15:17 | PCM.PYCHPN ---
Psychiatric Progress Note - Psychiatric Progress Note Patient seen today, length of contact: 30min Patient Chief Complaint: "I am fine..." Problems Identified/Issues Discussed: Suicide/ homicide prevention, past psychiatric h/o, current psychiatric symptoms , medical problems, risk/benefits and alternatives of medications, medications compliance, coping strategies, substance abuse h/o, relapse prevention, importance of follow up with psychiatrist and therapist, discharge plan. Medical Problems: DM Hypothyroidism HTN ?diabetic neuropathy will call podiatry consult Diagnostic Results: 11/27/17 07:56 11/27/17 08:00 Lab Results 11/27/17 08:00: Sodium 136, Potassium 3.7, Chloride 103, Carbon Dioxide 23, Anion Gap 14, BUN 12, Creatinine 0.5 L, Est GFR ( Amer) > 60, Est GFR ( Non-Af Amer) > 60, Random Glucose 111 H, Calcium 9.6, Total Bilirubin 1.1, AST 29, ALT 44, Alkaline Phosphatase 88, Total Protein 7.4, Albumin 4.2, Globulin 3.2, Albumin/Globulin Ratio 1.3, Triglycerides 100, Cholesterol 167, LDL Cholesterol Direct 124, HDL Cholesterol 34 11/27/17 07:57: TSH 3rd Generation 2.67 11/27/17 07:56: WBC 6.7 D, RBC 4.08, Hgb 12.5, Hct 37.0, MCV 90.7, MCH 30.6, MCHC 33.8, RDW 14.4, Plt Count 305, MPV 9.3, Gran % 61.0, Lymph % (Auto) 31.8, [place] % (Auto) 4.2, Eos % (Auto) 2.7, Baso % (Auto) 0.3, Gran # 4.08, Lymph # 2.1 , [place] # 0.3, Eos # 0.2, Baso # 0.02 11/27/17 07:15: POC Glucose (mg/dL) 122 H 11/26/17 21:40: POC Glucose (mg/dL) 147 H 11/26/17 17:18: POC Glucose (mg/dL) 129 H 11/26/17 12:50: [place] < 0.2 L 11/26/17 06:56: Urine Color Yellow, Urine Appearance Sl cloudy, Urine pH 6.0, Ur Specific [place] 1.025, Urine Protein Negative, Urine Glucose (UA) Negative, Urine Ketones Negative, Urine Blood Trace-intact H, Urine Nitrate Negative, Urine Bilirubin Negative, Urine Urobilinogen 0.2, Ur Leukocyte Esterase Moderate H, Urine RBC 0 - 2, Urine WBC 2 - 5, Ur Epithelial Cells 1 - 3, Urine Bacteria Rare 11/26/17 03:00: RPR Nonreactive 11/26/17 03:00: Free T4 1.34, TSH 3rd Generation 3.16 11/26/17 02:54: Urine Opiates Screen Negative, Urine Methadone Screen Negative, Ur Barbiturates Screen Negative, Ur Phencyclidine Scrn Negative, Ur Amphetamines Screen Negative, U Benzodiazepines Scrn Negative, U Oth Cocaine Metabols Negative, U Cannabinoids Screen Negative 11/26/17 02:50: Alcohol, Quantitative < 10 11/26/17 02:50: WBC 9.2, RBC 4.47, Hgb 13.7, Hct 40.9, MCV 91.5, MCH 30.6, MCHC 33.5, RDW 14.4, Plt Count 377, MPV 9.7 11/26/17 02:50: Sodium 142, Potassium 3.9, Chloride 102, Carbon Dioxide 27, Anion Gap 17, BUN 11, Creatinine 0.5 L, Est GFR ( Amer) > 60, Est GFR ( Non-Af Amer) > 60, Random Glucose 119 H, Calcium 10.2, Total Bilirubin 1.2, AST 39 H, ALT 50, Alkaline Phosphatase 98, Total Protein 8.5 H, Albumin 4.8, Globulin 3.8, Albumin/Globulin Ratio 1.3 Vital Signs Temp Pulse Resp BP Pulse Ox 11/26/17 16:00 68 133/67 11/26/17 07:23 58 L 16 164/78 H 100 11/26/17 02:25 98.1 F 60 17 160/87 H 100 Temp Pulse Resp BP Pulse Ox 97.9 F 66 20 112/67 100 11/30/17 07:07 11/30/17 07:07 11/30/17 07:07 11/30/17 07:07 11/26/17 07:23 DSM 5 Symptoms Update: This is a 56 years old female, multiple psychiatric admissions (more than 15), most recent was in [facility] in October 2017, pt who lives with her son and currently unemployed, came to the emergency room for psychiatric evaluation, pt most likely was noncompliant with medications, presented to be bizarre and disorganized, needed to have psych admission. pt was seen today at the [facility] area, pt presented with some psychomotor retardation, pt was mumbling something. pt said that she slept better. pt has some improvement with her presentation, but still disorganized, psychotic , but less manic. answers were not related to questions being asked, pt also presented with circumstantial and tangential thought process, but denied v/a/t hallucinations. pt had difficulties to stay focused, circumstantial and tangential thought process. as per report pt slept better. pt tolerated meds well, no side effects observed or reported, AIMS 0, no EPS. Impression: schizoaffective disorder, bipolar type Medication Change: Yes (haldol IM d/c) Medical Record Reviewed: Yes Consults ordered or reviewed: medical consult podiatry consult was called Mental Status Examination - Cognitive Function Orientation: Person, Place Memory: Impaired Attention: Poor Concentration: Poor Association: Loose Fund of Knowledge: Poor - Mood Mood: Euphoric - Affect Affect: Broad (labile) - Speech Speech: Pressured (some improvement) - Formal Thought Process Formal Thought Process: Delusions, Loosening of associations (still has a tendency to ramble quickly and go off on tangents), Flight of ideas, Circumstantial - Suicidal Ideation Suicidal Ideation: No - Homicidal Ideation Homicidal Ideation: No Goal/Treatment Plan - Goal/Treatment Plan Need for Continued Stay: Remain at risks for inpatient hospitalization, Severe depression anxiety, Discharge may exacerbated symptoms, Severe functional impairment Progress Toward Problem(s) and Goals/Treatment Plan: Milieu/structure/supportive therapy Milieu/structure/supportive therapy Medical consult will be called Supportive therapy, group therapy, individual therapy Haldol 10 mg by mouth twice a day for psychosis Cogentin 1 mg by mouth twice a day for possible EPS [place] 300 mg PO am and 600mg hs for mood stabilization Lithim level was low <0.3 most likely pt was noncompliant depakote 500mg po bid for mood stabilization Trazodone 100 mg by mouth daily at bedtime for insomnia neurontin 300mg po tid for diabetic neuropathy and mood stabilization will continue all meds for medical issues SW consultation for discharge plan and social issues Family involvement Follow up on labs Will monitor closely Pt was educated about risk/benefits and alternatives of medications, coping strategies (safety plan, suicide prevention), relapse prevention, importance of follow up with psychiatrist and therapist, stay away from drugs/alcohol/smoking Estimated Date of D/C: 12/04/17
[2017-12-02] MEDS: Levothyroxine 88 MCG TAB PO SCH (07:00)
[2017-12-02] MEDS: Insulin Lispro (humaLOG) MEDIUM Coverage SC SCH ×4 (09:58→21:48)
--- NOTE | 2017-12-02 17:00 | PCM.PYCHPN ---
Psychiatric Progress Note - Psychiatric Progress Note Patient seen today, length of contact: 30min Patient Chief Complaint: "voices of girls and boys were bothering me..." Problems Identified/Issues Discussed: Suicide/ homicide prevention, past psychiatric h/o, current psychiatric symptoms , medical problems, risk/benefits and alternatives of medications, medications compliance, coping strategies, substance abuse h/o, relapse prevention, importance of follow up with psychiatrist and therapist, discharge plan. Medical Problems: DM Hypothyroidism HTN ?diabetic neuropathy will call podiatry consult Diagnostic Results: 11/27/17 07:56 11/27/17 08:00 Lab Results 11/27/17 08:00: Sodium 136, Potassium 3.7, Chloride 103, Carbon Dioxide 23, Anion Gap 14, BUN 12, Creatinine 0.5 L, Est GFR ( Amer) > 60, Est GFR ( Non-Af Amer) > 60, Random Glucose 111 H, Calcium 9.6, Total Bilirubin 1.1, AST 29, ALT 44, Alkaline Phosphatase 88, Total Protein 7.4, Albumin 4.2, Globulin 3.2, Albumin/Globulin Ratio 1.3, Triglycerides 100, Cholesterol 167, LDL Cholesterol Direct 124, HDL Cholesterol 34 11/27/17 07:57: TSH 3rd Generation 2.67 11/27/17 07:56: WBC 6.7 D, RBC 4.08, Hgb 12.5, Hct 37.0, MCV 90.7, MCH 30.6, MCHC 33.8, RDW 14.4, Plt Count 305, MPV 9.3, Gran % 61.0, Lymph % (Auto) 31.8, [place] % (Auto) 4.2, Eos % (Auto) 2.7, Baso % (Auto) 0.3, Gran # 4.08, Lymph # 2.1 , [place] # 0.3, Eos # 0.2, Baso # 0.02 11/27/17 07:15: POC Glucose (mg/dL) 122 H 11/26/17 21:40: POC Glucose (mg/dL) 147 H 11/26/17 17:18: POC Glucose (mg/dL) 129 H 11/26/17 12:50: [place] < 0.2 L 11/26/17 06:56: Urine Color Yellow, Urine Appearance Sl cloudy, Urine pH 6.0, Ur Specific [place] 1.025, Urine Protein Negative, Urine Glucose (UA) Negative, Urine Ketones Negative, Urine Blood Trace-intact H, Urine Nitrate Negative, Urine Bilirubin Negative, Urine Urobilinogen 0.2, Ur Leukocyte Esterase Moderate H, Urine RBC 0 - 2, Urine WBC 2 - 5, Ur Epithelial Cells 1 - 3, Urine Bacteria Rare 11/26/17 03:00: RPR Nonreactive 11/26/17 03:00: Free T4 1.34, TSH 3rd Generation 3.16 11/26/17 02:54: Urine Opiates Screen Negative, Urine Methadone Screen Negative, Ur Barbiturates Screen Negative, Ur Phencyclidine Scrn Negative, Ur Amphetamines Screen Negative, U Benzodiazepines Scrn Negative, U Oth Cocaine Metabols Negative, U Cannabinoids Screen Negative 11/26/17 02:50: Alcohol, Quantitative < 10 11/26/17 02:50: WBC 9.2, RBC 4.47, Hgb 13.7, Hct 40.9, MCV 91.5, MCH 30.6, MCHC 33.5, RDW 14.4, Plt Count 377, MPV 9.7 11/26/17 02:50: Sodium 142, Potassium 3.9, Chloride 102, Carbon Dioxide 27, Anion Gap 17, BUN 11, Creatinine 0.5 L, Est GFR ( Amer) > 60, Est GFR ( Non-Af Amer) > 60, Random Glucose 119 H, Calcium 10.2, Total Bilirubin 1.2, AST 39 H, ALT 50, Alkaline Phosphatase 98, Total Protein 8.5 H, Albumin 4.8, Globulin 3.8, Albumin/Globulin Ratio 1.3 Vital Signs Temp Pulse Resp BP Pulse Ox 11/26/17 16:00 68 133/67 11/26/17 07:23 58 L 16 164/78 H 100 11/26/17 02:25 98.1 F 60 17 160/87 H 100 Temp Pulse Resp BP Pulse Ox 97.9 F 66 20 112/67 100 11/30/17 07:07 11/30/17 07:07 11/30/17 07:07 11/30/17 07:07 11/26/17 07:23 Temp Pulse Resp BP Pulse Ox 97.9 F 58 L 20 112/59 L 100 12/02/17 07:50 12/02/17 16:16 12/02/17 07:50 12/02/17 16:16 11/26/17 07:23 DSM 5 Symptoms Update: This is a 56 years old female, multiple psychiatric admissions (more than 15), most recent was in [facility] in October 2017, pt who lives with her son and currently unemployed, came to the emergency room for psychiatric evaluation, pt most likely was noncompliant with medications, presented to be bizarre and disorganized, needed to have psych admission. pt was seen today at the treatment team meeting room, utilized translation system [email or web address], pt presented with some psychomotor retardation, pt was mumbling something, for change control specialist it was very hard to understand. pt said she had difficulties to fall and stay asleep "because voices or girls and boys in the unit", there is no kids in the unit pt is hallucinating. answers were not related to questions being asked, pt also presented with circumstantial and tangential thought process,pt had difficulties to stay focused. pt has some improvement with her presentation, but still disorganized, psychotic , but less manic. pt tolerated meds well, no side effects observed or reported, AIMS 0, no EPS, pt pt appeared to be sleepy, will decrease haldol po. Impression: schizoaffective disorder, bipolar type Medication Change: Yes (decrease PO haldol) Medical Record Reviewed: Yes Consults ordered or reviewed: medical consult podiatry consult was called Mental Status Examination - Cognitive Function Orientation: Person, Place Memory: Impaired Attention: Poor Concentration: Poor Association: Loose Fund of Knowledge: Poor - Mood Mood: Euphoric - Affect Affect: Constricted - Speech Speech: Pressured (some improvement) - Formal Thought Process Formal Thought Process: Hallucinations ("voices of boys and girls"), Delusions, Paranoia, Loosening of associations (still has a tendency to ramble quickly and go off on tangents), Circumstantial - Suicidal Ideation Suicidal Ideation: No - Homicidal Ideation Homicidal Ideation: No Goal/Treatment Plan - Goal/Treatment Plan Need for Continued Stay: Remain at risks for inpatient hospitalization, Severe depression anxiety, Discharge may exacerbated symptoms, Severe functional impairment Progress Toward Problem(s) and Goals/Treatment Plan: Milieu/structure/supportive therapy Milieu/structure/supportive therapy Medical consult will be called Supportive therapy, group therapy, individual therapy Haldol will be decreased to 5 mg by mouth twice a day for psychosis Cogentin 1 mg by mouth twice a day for possible EPS [place] 300 mg PO am and 600mg hs for mood stabilization Lithim level was low <0.3 most likely pt was noncompliant lithium level tomorrow depakote 500mg po bid for mood stabilization depakote level for tomorrow Trazodone 100 mg by mouth daily at bedtime for insomnia neurontin 300mg po tid for diabetic neuropathy and mood stabilization will continue all meds for medical issues SW consultation for discharge plan and social issues Family involvement Follow up on labs Will monitor closely Pt was educated about risk/benefits and alternatives of medications, coping strategies (safety plan, suicide prevention), relapse prevention, importance of follow up with psychiatrist and therapist, stay away from drugs/alcohol/smoking Estimated Date of D/C: 12/04/17
[2017-12-03] MEDS: Levothyroxine 88 MCG TAB PO SCH (06:00)
[2017-12-03 10:33] LABS: BASO # 0.01 K/mm3 (0.0-2.0); BASO % 0.2 % (0.0-3.0); EOS # 0.2 (0.0-0.7); EOS % 3.1 % (1.5-5.0); GRAN # 3.2 (1.4-6.5); GRAN % 54.6 % (50.0-68.0); HEMOGLOBIN 12.3 g/dL (12.0-16.0); LYMPH # 2.2 (1.2-3.4); LYMPH % 37.5 % (22.0-35.0); MEAN CELL VOLUME 93.6 fl (80.0-105.0); MEAN CORPUSCULAR HEMOGLOBIN 30.4 pg (25.0-35.0); MEAN CORPUSCULAR HGB CONC 32.5 g/dl (31.0-37.0); MEAN PLATELET VOLUME 10.4 fl (7.0-11.0); MONO # 0.3 (0.1-0.6); MONO % 4.6 % (1.0-6.0); RBC 4.05 10^6/uL (3.5-6.1); RED CELL DISTRIBUTION WIDTH 14.2 % (11.5-14.5); WHITE BLOOD COUNT 5.9 10^3/ul (4.5-11.0)
[2017-12-03 11:05] LABS: ALB/GLOB RATIO 1.3 (1.1-1.8); ALBUMIN 3.8 g/dL (3.0-4.8); ALT/SGPT 36 U/L (7-56); AST/SGOT 27 U/L (14-36); BLOOD UREA NITROGEN 13 mg/dL (7-21); CALCIUM 9.7 mg/dL (8.4-10.5); GFR AFRICAN-AMERICAN > 60; GFR NON-AFRICAN AMERICAN > 60
[2017-12-03] MEDS: Insulin Lispro (humaLOG) MEDIUM Coverage SC SCH ×4 (11:14→22:43)
--- NOTE | 2017-12-03 16:43 | PCM.PYCHPN ---
Psychiatric Progress Note - Psychiatric Progress Note Patient seen today, length of contact: 30min Patient Chief Complaint: "I am fine..." Problems Identified/Issues Discussed: Suicide/ homicide prevention, past psychiatric h/o, current psychiatric symptoms , medical problems, risk/benefits and alternatives of medications, medications compliance, coping strategies, substance abuse h/o, relapse prevention, importance of follow up with psychiatrist and therapist, discharge plan. Medical Problems: DM Hypothyroidism HTN ?diabetic neuropathy will call podiatry consult Diagnostic Results: 11/27/17 07:56 11/27/17 08:00 Lab Results 11/27/17 08:00: Sodium 136, Potassium 3.7, Chloride 103, Carbon Dioxide 23, Anion Gap 14, BUN 12, Creatinine 0.5 L, Est GFR ( Amer) > 60, Est GFR ( Non-Af Amer) > 60, Random Glucose 111 H, Calcium 9.6, Total Bilirubin 1.1, AST 29, ALT 44, Alkaline Phosphatase 88, Total Protein 7.4, Albumin 4.2, Globulin 3.2, Albumin/Globulin Ratio 1.3, Triglycerides 100, Cholesterol 167, LDL Cholesterol Direct 124, HDL Cholesterol 34 11/27/17 07:57: TSH 3rd Generation 2.67 11/27/17 07:56: WBC 6.7 D, RBC 4.08, Hgb 12.5, Hct 37.0, MCV 90.7, MCH 30.6, MCHC 33.8, RDW 14.4, Plt Count 305, MPV 9.3, Gran % 61.0, Lymph % (Auto) 31.8, [place] % (Auto) 4.2, Eos % (Auto) 2.7, Baso % (Auto) 0.3, Gran # 4.08, Lymph # 2.1 , [place] # 0.3, Eos # 0.2, Baso # 0.02 11/27/17 07:15: POC Glucose (mg/dL) 122 H 11/26/17 21:40: POC Glucose (mg/dL) 147 H 11/26/17 17:18: POC Glucose (mg/dL) 129 H 11/26/17 12:50: [place] < 0.2 L 11/26/17 06:56: Urine Color Yellow, Urine Appearance Sl cloudy, Urine pH 6.0, Ur Specific [place] 1.025, Urine Protein Negative, Urine Glucose (UA) Negative, Urine Ketones Negative, Urine Blood Trace-intact H, Urine Nitrate Negative, Urine Bilirubin Negative, Urine Urobilinogen 0.2, Ur Leukocyte Esterase Moderate H, Urine RBC 0 - 2, Urine WBC 2 - 5, Ur Epithelial Cells 1 - 3, Urine Bacteria Rare 11/26/17 03:00: RPR Nonreactive 11/26/17 03:00: Free T4 1.34, TSH 3rd Generation 3.16 11/26/17 02:54: Urine Opiates Screen Negative, Urine Methadone Screen Negative, Ur Barbiturates Screen Negative, Ur Phencyclidine Scrn Negative, Ur Amphetamines Screen Negative, U Benzodiazepines Scrn Negative, U Oth Cocaine Metabols Negative, U Cannabinoids Screen Negative 11/26/17 02:50: Alcohol, Quantitative < 10 11/26/17 02:50: WBC 9.2, RBC 4.47, Hgb 13.7, Hct 40.9, MCV 91.5, MCH 30.6, MCHC 33.5, RDW 14.4, Plt Count 377, MPV 9.7 11/26/17 02:50: Sodium 142, Potassium 3.9, Chloride 102, Carbon Dioxide 27, Anion Gap 17, BUN 11, Creatinine 0.5 L, Est GFR ( Amer) > 60, Est GFR ( Non-Af Amer) > 60, Random Glucose 119 H, Calcium 10.2, Total Bilirubin 1.2, AST 39 H, ALT 50, Alkaline Phosphatase 98, Total Protein 8.5 H, Albumin 4.8, Globulin 3.8, Albumin/Globulin Ratio 1.3 Vital Signs Temp Pulse Resp BP Pulse Ox 11/26/17 16:00 68 133/67 11/26/17 07:23 58 L 16 164/78 H 100 11/26/17 02:25 98.1 F 60 17 160/87 H 100 Temp Pulse Resp BP Pulse Ox 97.9 F 66 20 112/67 100 11/30/17 07:07 11/30/17 07:07 11/30/17 07:07 11/30/17 07:07 11/26/17 07:23 Temp Pulse Resp BP Pulse Ox 97.9 F 58 L 20 112/59 L 100 12/02/17 07:50 12/02/17 16:16 12/02/17 07:50 12/02/17 16:16 11/26/17 07:23 Temp Pulse Resp BP Pulse Ox 97.7 F 64 20 122/79 100 12/03/17 07:45 12/03/17 10:34 12/03/17 07:45 12/03/17 10:34 11/26/17 07:23 Laboratory Results - last 24 hr 12/02/17 12/03/17 12/03/17 21:48 07:17 08:00 WBC RBC Hgb Hct MCV MCH MCHC RDW Plt Count MPV Gran % Lymph % (Auto) [place] % (Auto) Eos % (Auto) Baso % (Auto) Gran # Lymph # [place] # Eos # Baso # Sodium Potassium Chloride Carbon Dioxide Anion Gap BUN Creatinine Est GFR ( Amer) Est GFR (Non-Af Amer) POC Glucose (mg/dL) 136 H 76 Random Glucose Calcium Total Bilirubin AST ALT Alkaline Phosphatase Total Protein Albumin Globulin Albumin/Globulin Ratio Valproic Acid 87 12/03/17 12/03/17 12/03/17 09:30 10:30 10:30 WBC 5.9 RBC 4.05 Hgb 12.3 Hct 37.9 MCV 93.6 MCH 30.4 MCHC 32.5 RDW 14.2 Plt Count 248 MPV 10.4 Gran % 54.6 Lymph % (Auto) 37.5 H [place] % (Auto) 4.6 Eos % (Auto) 3.1 Baso % (Auto) 0.2 Gran # 3.20 Lymph # 2.2 [place] # 0.3 Eos # 0.2 Baso # 0.01 Sodium 139 Potassium 4.0 Chloride 102 Carbon Dioxide 25 Anion Gap 15 BUN 13 Creatinine 0.6 L Est GFR ( Amer) > 60 Est GFR (Non-Af Amer) > 60 POC Glucose (mg/dL) 95 Random Glucose 90 Calcium 9.7 Total Bilirubin 1.1 AST 27 ALT 36 Alkaline Phosphatase 70 Total Protein 6.9 Albumin 3.8 Globulin 3.1 Albumin/Globulin Ratio 1.3 Valproic Acid 12/03/17 11:30 WBC RBC Hgb Hct MCV MCH MCHC RDW Plt Count MPV Gran % Lymph % (Auto) [place] % (Auto) Eos % (Auto) Baso % (Auto) Gran # Lymph # [place] # Eos # Baso # Sodium Potassium Chloride Carbon Dioxide Anion Gap BUN Creatinine Est GFR ( Amer) Est GFR (Non-Af Amer) POC Glucose (mg/dL) 103 Random Glucose Calcium Total Bilirubin AST ALT Alkaline Phosphatase Total Protein Albumin Globulin Albumin/Globulin Ratio Valproic Acid DSM 5 Symptoms Update: This is a 56 years old female, multiple psychiatric admissions (more than 15), most recent was in [facility] in October 2017, pt who lives with her son and currently unemployed, came to the emergency room for psychiatric evaluation, pt most likely was noncompliant with medications, presented to be bizarre and disorganized, needed to have psych admission. pt was seen today at [facility], pt was visited by Janeen [facility] [phone], pt has long h/o noncompliance, refused to go to [facility], lives with son, Janeen knows pt for about six months, now pt does not present at her baseline of functioning. pt started to have a shuffling gait, haldol d/c po, cogentin increased, if we need to add antipsychotic meds it will be seroquel. pt still disorganized, psychotic, sleepy, pt also presented with circumstantial and tangential thought process,pt had difficulties to stay focused. 87 Depakote level 12/03/16 0.8 [place] level 12/03/16 Impression: schizoaffective disorder, bipolar type Medication Change: Yes (d/c haldol, cogentin increased, neurontin decerased) Medical Record Reviewed: Yes Consults ordered or reviewed: medical consult podiatry consult was called Mental Status Examination - Cognitive Function Orientation: Person, Place Memory: Impaired Attention: Poor Concentration: Poor Association: Loose Fund of Knowledge: Poor - Mood Mood: Euphoric - Affect Affect: Constricted - Speech Speech: Pressured (some improvement) - Formal Thought Process Formal Thought Process: Hallucinations ("voices of boys and girls"), Delusions, Paranoia, Loosening of associations (still has a tendency to ramble quickly and go off on tangents), Circumstantial - Suicidal Ideation Suicidal Ideation: No - Homicidal Ideation Homicidal Ideation: No Goal/Treatment Plan - Goal/Treatment Plan Need for Continued Stay: Remain at risks for inpatient hospitalization, Severe depression anxiety, Discharge may exacerbated symptoms, Severe functional impairment Progress Toward Problem(s) and Goals/Treatment Plan: Milieu/structure/supportive therapy Milieu/structure/supportive therapy Medical consult will be called Supportive therapy, group therapy, individual therapy Haldol d/c Cogentin 1 mg by mouth three times a day for possible EPS [place] 300 mg PO am and 600mg hs for mood stabilization depakote 500mg po bid for mood stabilization Trazodone 100 mg by mouth daily at bedtime for insomnia neurontin 300mg po tid for diabetic neuropathy and mood stabilization will continue all meds for medical issues SW consultation for discharge plan and social issues Family involvement Follow up on labs Will monitor closely Pt was educated about risk/benefits and alternatives of medications, coping strategies (safety plan, suicide prevention), relapse prevention, importance of follow up with psychiatrist and therapist, stay away from drugs/alcohol/smoking Estimated Date of D/C: 12/04/17
[2017-12-04] MEDS: Levothyroxine 88 MCG TAB PO SCH (06:14)
[2017-12-04 08:20] LABS: ALB/GLOB RATIO 1.3 (1.1-1.8); ALBUMIN 4.2 g/dL (3.0-4.8); ALT/SGPT 28 U/L (7-56); AST/SGOT 23 U/L (14-36); BLOOD UREA NITROGEN 12 mg/dL (7-21); CALCIUM 9.9 mg/dL (8.4-10.5); GFR AFRICAN-AMERICAN > 60; GFR NON-AFRICAN AMERICAN > 60
[2017-12-04] MEDS: Insulin Lispro (humaLOG) MEDIUM Coverage SC SCH ×3 (09:00→23:30)
--- NOTE | 2017-12-04 13:57 | PCM.PYCHPN ---
Psychiatric Progress Note - Psychiatric Progress Note Patient seen today, length of contact: 30min Patient Chief Complaint: "my father 17 years ago...", "I sleep well, no voices". Problems Identified/Issues Discussed: Suicide/ homicide prevention, past psychiatric h/o, current psychiatric symptoms , medical problems, risk/benefits and alternatives of medications, medications compliance, coping strategies, substance abuse h/o, relapse prevention, importance of follow up with psychiatrist and therapist, discharge plan. Medical Problems: DM Hypothyroidism HTN ?diabetic neuropathy will call podiatry consult Diagnostic Results: 11/27/17 07:56 11/27/17 08:00 Lab Results 11/27/17 08:00: Sodium 136, Potassium 3.7, Chloride 103, Carbon Dioxide 23, Anion Gap 14, BUN 12, Creatinine 0.5 L, Est GFR ( Amer) > 60, Est GFR ( Non-Af Amer) > 60, Random Glucose 111 H, Calcium 9.6, Total Bilirubin 1.1, AST 29, ALT 44, Alkaline Phosphatase 88, Total Protein 7.4, Albumin 4.2, Globulin 3.2, Albumin/Globulin Ratio 1.3, Triglycerides 100, Cholesterol 167, LDL Cholesterol Direct 124, HDL Cholesterol 34 11/27/17 07:57: TSH 3rd Generation 2.67 11/27/17 07:56: WBC 6.7 D, RBC 4.08, Hgb 12.5, Hct 37.0, MCV 90.7, MCH 30.6, MCHC 33.8, RDW 14.4, Plt Count 305, MPV 9.3, Gran % 61.0, Lymph % (Auto) 31.8, [place] % (Auto) 4.2, Eos % (Auto) 2.7, Baso % (Auto) 0.3, Gran # 4.08, Lymph # 2.1 , [place] # 0.3, Eos # 0.2, Baso # 0.02 11/27/17 07:15: POC Glucose (mg/dL) 122 H 11/26/17 21:40: POC Glucose (mg/dL) 147 H 11/26/17 17:18: POC Glucose (mg/dL) 129 H 11/26/17 12:50: [place] < 0.2 L 11/26/17 06:56: Urine Color Yellow, Urine Appearance Sl cloudy, Urine pH 6.0, Ur Specific [place] 1.025, Urine Protein Negative, Urine Glucose (UA) Negative, Urine Ketones Negative, Urine Blood Trace-intact H, Urine Nitrate Negative, Urine Bilirubin Negative, Urine Urobilinogen 0.2, Ur Leukocyte Esterase Moderate H, Urine RBC 0 - 2, Urine WBC 2 - 5, Ur Epithelial Cells 1 - 3, Urine Bacteria Rare 11/26/17 03:00: RPR Nonreactive 11/26/17 03:00: Free T4 1.34, TSH 3rd Generation 3.16 11/26/17 02:54: Urine Opiates Screen Negative, Urine Methadone Screen Negative, Ur Barbiturates Screen Negative, Ur Phencyclidine Scrn Negative, Ur Amphetamines Screen Negative, U Benzodiazepines Scrn Negative, U Oth Cocaine Metabols Negative, U Cannabinoids Screen Negative 11/26/17 02:50: Alcohol, Quantitative < 10 11/26/17 02:50: WBC 9.2, RBC 4.47, Hgb 13.7, Hct 40.9, MCV 91.5, MCH 30.6, MCHC 33.5, RDW 14.4, Plt Count 377, MPV 9.7 11/26/17 02:50: Sodium 142, Potassium 3.9, Chloride 102, Carbon Dioxide 27, Anion Gap 17, BUN 11, Creatinine 0.5 L, Est GFR ( Amer) > 60, Est GFR ( Non-Af Amer) > 60, Random Glucose 119 H, Calcium 10.2, Total Bilirubin 1.2, AST 39 H, ALT 50, Alkaline Phosphatase 98, Total Protein 8.5 H, Albumin 4.8, Globulin 3.8, Albumin/Globulin Ratio 1.3 Vital Signs Temp Pulse Resp BP Pulse Ox 11/26/17 16:00 68 133/67 11/26/17 07:23 58 L 16 164/78 H 100 11/26/17 02:25 98.1 F 60 17 160/87 H 100 Temp Pulse Resp BP Pulse Ox 97.9 F 66 20 112/67 100 11/30/17 07:07 11/30/17 07:07 11/30/17 07:07 11/30/17 07:07 11/26/17 07:23 Temp Pulse Resp BP Pulse Ox 97.9 F 58 L 20 112/59 L 100 12/02/17 07:50 12/02/17 16:16 12/02/17 07:50 12/02/17 16:16 11/26/17 07:23 Temp Pulse Resp BP Pulse Ox 97.7 F 64 20 122/79 100 12/03/17 07:45 12/03/17 10:34 12/03/17 07:45 12/03/17 10:34 11/26/17 07:23 Laboratory Results - last 24 hr 12/02/17 12/03/17 12/03/17 21:48 07:17 08:00 WBC RBC Hgb Hct MCV MCH MCHC RDW Plt Count MPV Gran % Lymph % (Auto) [place] % (Auto) Eos % (Auto) Baso % (Auto) Gran # Lymph # [place] # Eos # Baso # Sodium Potassium Chloride Carbon Dioxide Anion Gap BUN Creatinine Est GFR ( Amer) Est GFR (Non-Af Amer) POC Glucose (mg/dL) 136 H 76 Random Glucose Calcium Total Bilirubin AST ALT Alkaline Phosphatase Total Protein Albumin Globulin Albumin/Globulin Ratio Valproic Acid 87 12/03/17 12/03/17 12/03/17 09:30 10:30 10:30 WBC 5.9 RBC 4.05 Hgb 12.3 Hct 37.9 MCV 93.6 MCH 30.4 MCHC 32.5 RDW 14.2 Plt Count 248 MPV 10.4 Gran % 54.6 Lymph % (Auto) 37.5 H [place] % (Auto) 4.6 Eos % (Auto) 3.1 Baso % (Auto) 0.2 Gran # 3.20 Lymph # 2.2 [place] # 0.3 Eos # 0.2 Baso # 0.01 Sodium 139 Potassium 4.0 Chloride 102 Carbon Dioxide 25 Anion Gap 15 BUN 13 Creatinine 0.6 L Est GFR ( Amer) > 60 Est GFR (Non-Af Amer) > 60 POC Glucose (mg/dL) 95 Random Glucose 90 Calcium 9.7 Total Bilirubin 1.1 AST 27 ALT 36 Alkaline Phosphatase 70 Total Protein 6.9 Albumin 3.8 Globulin 3.1 Albumin/Globulin Ratio 1.3 Valproic Acid 12/03/17 11:30 WBC RBC Hgb Hct MCV MCH MCHC RDW Plt Count MPV Gran % Lymph % (Auto) [place] % (Auto) Eos % (Auto) Baso % (Auto) Gran # Lymph # [place] # Eos # Baso # Sodium Potassium Chloride Carbon Dioxide Anion Gap BUN Creatinine Est GFR ( Amer) Est GFR (Non-Af Amer) POC Glucose (mg/dL) 103 Random Glucose Calcium Total Bilirubin AST ALT Alkaline Phosphatase Total Protein Albumin Globulin Albumin/Globulin Ratio Valproic Acid DSM 5 Symptoms Update: This is a 56 years old female, multiple psychiatric admissions (more than 15), most recent was in [facility] in October 2017, pt who lives with her son and currently unemployed, came to the emergency room for psychiatric evaluation, pt most likely was noncompliant with medications, presented to be bizarre and disorganized, needed to have psych admission. pt was seen today at the treatment team meeting. pt presented to be disorganized even with interpretation help [id number] [id number]. pt was not able to repeat three objects and unable to draw a clock, minicog was scored <2 positive for cognitive impairment. pt then started to cry, saying that her father 17years ago, was not able to explain why she brought it to the conversation, then started to laugh, pt is emotionally labile, circumstantial and tangential thought process, pt had difficulties to stay focused. Pt said that she feels drowsy, dizzy, denied nausea, denied diarrhea. pt's lithium will be decreased to 450mg hs. gait is more steady, but pt still has Parkinsonian (shuffling) gait, cogentin was increased yesterday, haldol was d/c, would consider seroquel or Risperdal if antipsychotic needs to be added. no stiffness, no tremor. 12/03/17: pt was visited by Janeen [facility] [phone], pt has long h/o noncompliance, refused to go to [facility], lives with son, Janeen knows pt for about six months, now pt does not present at her baseline of functioning. as per staff pt had verbal altercation with another pt 12/02/17 at evening, pt needed to stay in the quiet room, no IM, pt was able to calm down. 87 Depakote level 12/03/16 0.8 [place] level 12/03/16 Impression: schizoaffective disorder, bipolar type Medication Change: Yes (lithium decreased at hs) Medical Record Reviewed: Yes Consults ordered or reviewed: medical consult podiatry consult was called Mental Status Examination - Cognitive Function Orientation: Person, Place Memory: Impaired Attention: Poor Concentration: Poor Association: Loose Fund of Knowledge: Poor - Mood Mood: Euphoric - Affect Affect: Constricted - Speech Speech: Pressured (some improvement) - Formal Thought Process Formal Thought Process: Hallucinations (denied today), Delusions, Paranoia, Loosening of associations (still has a tendency to ramble quickly and go off on tangents), Circumstantial - Suicidal Ideation Suicidal Ideation: No - Homicidal Ideation Homicidal Ideation: No Goal/Treatment Plan - Goal/Treatment Plan Need for Continued Stay: Remain at risks for inpatient hospitalization, Severe depression anxiety, Discharge may exacerbated symptoms, Severe functional impairment Progress Toward Problem(s) and Goals/Treatment Plan: Milieu/structure/supportive therapy Milieu/structure/supportive therapy Medical consult will be called Supportive therapy, group therapy, individual therapy Haldol d/c Haldol Dec 100mg IM [id number], last dose was ~11/25/17 Cogentin 1 mg by mouth three times a day for possible EPS [place] 300 mg PO am and 450mg hs for mood stabilization depakote 500mg po bid for mood stabilization Trazodone 100 mg by mouth daily at bedtime for insomnia neurontin 300mg po tid for diabetic neuropathy and mood stabilization will continue all meds for medical issues SW consultation for discharge plan and social issues Family involvement Follow up on labs Will monitor closely Pt was educated about risk/benefits and alternatives of medications, coping strategies (safety plan, suicide prevention), relapse prevention, importance of follow up with psychiatrist and therapist, stay away from drugs/alcohol/smoking Estimated Date of D/C: 12/08/17
--- NOTE | 2017-12-04 16:12 | PCM.BM ---
Treatment Plan Problems - Problems identified on initial assessmt ALTERED THOUGHT PROCESS Date Initiated: 11/26/17 Time Initiated: 14:00 Assessment reference: NA Status: Active Priority: 1 ALTERED SLEEP PATTERN Date Initiated: 11/26/17 Time Initiated: 14:00 Assessment reference: NA Status: Active Priority: 2 INEFFECTIVE COPING Date Initiated: 11/26/17 Time Initiated: 14:00 Assessment reference: NA Status: Active Priority: 3 Treatment assets and liabiliti Patient Assests: cooperative, ADL independent, cognitively intact Patient Liabilities: poor support system, medical problems, language/speech - Diagnosis (1) Bipolar affective disorder Status: Acute Interventions: Psychoeducation Psychopharmacology/adjustment of medications as needed/ monitoring possible side effects Monitor blood level of mood stabilizers Evaluate pt on daily basis Compliance with medications and follow up appointments Suicide and homicide risk assessment and prevention, coping strategies, safety plan Relapse prevention Reduction of symptoms Improve functional status Family involvement As outpatient: cognitive behavioral therapy (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 Status: Acute Interventions: 11/26/17 15:50 DM Continue prescribed medications Monitor signs and symptoms Hypothyroidism Continue prescribed medications Monitor signs and symptoms HTN Continue prescribed medications Monitor signs and symptoms - Milieu Protocol Maintain good personal hygiene: every shift Encourage regular showers, every shift Remind patient to perform daily oral care, every shift Assist patient to perform ADL's Maintain personal safety: every shift Educate patient to report safety concerns to staff, every shift Monitor environment for contraband/sharps Medication safety: Monitor for expected outcome, potential side effects: every shift, Assess barriers to learning: every shift, Assess readiness for medication education: every shift Milieu Narrative: CBT Psychoeducation Supportive therapy, group therapy, individual therapy Haldol 5 mg by mouth twice a day Cogentin 1 mg by mouth twice a day [place] 300 mg PO TID Trazodone 50 mg by mouth daily at bedtime Family Contact Family involvement: Patient does not wish Family/SO involvement Discharge/Continuing Care - Education Needs Education Needs: Patient Medication, Patient Diagnosis/Disease Process, Patient Coping Skills, Patient Community resources, Patient Activities of Daily Living, Patient Nutrition, Patient Health Practices/Safety, Patient Personal Hygiene/ Grooming, Patient Aftercare Safety Plan - Discharge Discharge Criteria: Tolerates medication w/o severe side effects, Free of paranoid thoughts, Free of agitation, Normal sleep pattern, Ability to care for self, No longer exhibiting s/s of withdrawal, Reduction of target symptoms Discharge to:: Home - Treatment Team Participation Patient/Family/SO Statement: CBT Psychoeducation Supportive therapy, group therapy, individual therapy Haldol 5 mg by mouth twice a day Cogentin 1 mg by mouth twice a day [place] 300 mg PO TID Trazodone 50 mg by mouth daily at bedtime
--- NOTE | 2017-12-04 16:14 | PCM.BM ---
Treatment Plan Problems - Problems identified on initial assessmt ALTERED THOUGHT PROCESS Date Initiated: 11/26/17 Time Initiated: 14:00 Assessment reference: NA Status: Active Priority: 1 ALTERED SLEEP PATTERN Date Initiated: 11/26/17 Time Initiated: 14:00 Assessment reference: NA Status: Active Priority: 2 INEFFECTIVE COPING Date Initiated: 11/26/17 Time Initiated: 14:00 Assessment reference: NA Status: Active Priority: 3 Treatment assets and liabiliti Patient Assests: cooperative, ADL independent, cognitively intact Patient Liabilities: poor support system, medical problems, language/speech - Diagnosis (1) Bipolar affective disorder Status: Acute Interventions: Psychoeducation Psychopharmacology/adjustment of medications as needed/ monitoring possible side effects Monitor blood level of mood stabilizers Evaluate pt on daily basis Compliance with medications and follow up appointments Suicide and homicide risk assessment and prevention, coping strategies, safety plan Relapse prevention Reduction of symptoms Improve functional status Family involvement As outpatient: cognitive behavioral therapy pt is slowly improving collaterals obtained 12/04/17 16:13 (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 Status: Acute Interventions: 11/26/17 15:50 DM Continue prescribed medications Monitor signs and symptoms Hypothyroidism Continue prescribed medications Monitor signs and symptoms HTN Continue prescribed medications Monitor signs and symptoms medical team involved pt is meds compliant medically sahni is stable 12/04/17 16:13 - Milieu Protocol Maintain good personal hygiene: every shift Encourage regular showers, every shift Remind patient to perform daily oral care, every shift Assist patient to perform ADL's Maintain personal safety: every shift Educate patient to report safety concerns to staff, every shift Monitor environment for contraband/sharps Medication safety: Monitor for expected outcome, potential side effects: every shift, Assess barriers to learning: every shift, Assess readiness for medication education: every shift Milieu Narrative: CBT Psychoeducation Supportive therapy, group therapy, individual therapy Haldol 5 mg by mouth twice a day Cogentin 1 mg by mouth twice a day [place] 300 mg PO TID Trazodone 50 mg by mouth daily at bedtime Family Contact Family involvement: Patient does not wish Family/SO involvement Discharge/Continuing Care - Education Needs Education Needs: Patient Medication, Patient Diagnosis/Disease Process, Patient Coping Skills, Patient Community resources, Patient Activities of Daily Living, Patient Nutrition, Patient Health Practices/Safety, Patient Personal Hygiene/ Grooming, Patient Aftercare Safety Plan - Discharge Discharge Criteria: Tolerates medication w/o severe side effects, Free of paranoid thoughts, Free of agitation, Normal sleep pattern, Ability to care for self, No longer exhibiting s/s of withdrawal, Reduction of target symptoms Discharge to:: Home - Treatment Team Participation Patient/Family/SO Statement: CBT Psychoeducation Supportive therapy, group therapy, individual therapy Haldol 5 mg by mouth twice a day Cogentin 1 mg by mouth twice a day [place] 300 mg PO TID Trazodone 50 mg by mouth daily at bedtime Treatment Plan Review - Problem ALTERED THOUGHT PROCESS Time Initiated: 14:00 ALTERED SLEEP PATTERN Time Initiated: 14:00 INEFFECTIVE COPING Time Initiated: 14:00
[2017-12-04] MEDS: Lithium Carbonate ER Tab 450 MG PO SCH (21:03)
[2017-12-05] MEDS: Levothyroxine 88 MCG TAB PO SCH (06:35)
[2017-12-05] MEDS: Insulin Lispro (humaLOG) MEDIUM Coverage SC SCH ×3 (08:27→17:28)
--- NOTE | 2017-12-05 09:18 | PCM.PYCHPN ---
Psychiatric Progress Note - Psychiatric Progress Note Patient seen today, length of contact: 25 min Problems Identified/Issues Discussed: I reviewed recent notes and met with patient at bedside. She is responsive to questioning but remains disorganized and odd. She switches repeatedly from Upper Sorbian to Syrian despite this providers reminders that I cannot understand Syrian. She knows it is November but refuses to tell me the location or year. She was well oriented to this information last weekend. She does appear calmer and her speech isn't as loud or argumentative. Focus is better though, as noted above, she is bizarrely related. Smiles inappropriately. Patient denies new pain or side effects except for lower back pain. Patient denies having any hallucinations and doesn't appear to responding to internal stimuli. Staff notes indicate that patient has been disorganized, circumstantial and labile on the unit. Wanders the unit and can be defiant. Frequently requires redirection. Overall she seems less intrusive and more manageable this weekend though her behavior still remains unpredictable. Diagnostic Results: Schizoaffective Disorder, Bipolar type Medication Change: Yes (lithium decreased at hs) Medical Record Reviewed: Yes Mental Status Examination - Cognitive Function Orientation: Person, Place Memory: Impaired Attention: Poor Concentration: Poor Association: Loose Fund of Knowledge: Poor - Mood Mood: Euphoric - Affect Affect: Constricted, Other (labile) - Speech Speech: Pressured (some improvement) - Formal Thought Process Formal Thought Process: Hallucinations (denied today), Delusions, Paranoia, Loosening of associations ( disorganized, circumstantial ), Circumstantial - Suicidal Ideation Suicidal Ideation: No - Homicidal Ideation Homicidal Ideation: No Goal/Treatment Plan - Goal/Treatment Plan Need for Continued Stay: Remain at risks for inpatient hospitalization, Severe depression anxiety, Discharge may exacerbated symptoms, Severe functional impairment Progress Toward Problem(s) and Goals/Treatment Plan: * c/w current tx and plan * No weekend labs thus far * Vitals reviewed and noted below: 12/03/17 12/03/17 12/03/17 07:45 10:34 16:30 Temperature 97.7 F Pulse Rate 58 L 64 64 Respiratory 20 Rate Blood Pressure 120/78 122/79 125/58 L Estimated Date of D/C: 12/08/17
[2017-12-05] MEDS: Lithium Carbonate ER Tab 450 MG PO SCH (21:43)
[2017-12-06] MEDS: Levothyroxine 88 MCG TAB PO SCH (06:30)
--- NOTE | 2017-12-06 09:22 | PCM.PYCHPN ---
Psychiatric Progress Note - Psychiatric Progress Note Patient seen today, length of contact: 25 min Problems Identified/Issues Discussed: I reviewed recent notes and met with patient in the hallway. She more is responsive to questioning but remains disorganized and oddly related. She switches to Romanian less frequently and can be more successfully redirected in this way. She knows it is November 2017. She does appear calmer and her speech isn't as loud or argumentative. Focus is better, though as noted above, she is bizarrely related. 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 She sang "it's your birthday, it's your birthday" during questioning because her birthday is in 5 days. Patient denies new pain or side effects except for lower back pain. Patient denies having any hallucinations and doesn't appear to responding to internal stimuli. Staff notes indicate that patient has been disorganized, circumstantial and labile on the unit. Wanders the unit and can be defiant. Got into an argument at breakfast with her former roommate and called her a thief. Patient was redirectable. Overall she seems less intrusive and more manageable this weekend though her behavior still remains unpredictable. Diagnostic Results: Schizoaffective Disorder, Bipolar type Medication Change: Yes (lithium decreased at hs) Medical Record Reviewed: Yes Mental Status Examination - Cognitive Function Orientation: Person, Place Memory: Impaired Attention: Poor Concentration: Poor Association: Loose Fund of Knowledge: Poor - Mood Mood: Euphoric - Affect Affect: Constricted, Other (labile) - Speech Speech: Pressured (some improvement) - Formal Thought Process Formal Thought Process: Hallucinations (denied today), Delusions, Paranoia, Loosening of associations ( disorganized, circumstantial ), Circumstantial - Suicidal Ideation Suicidal Ideation: No - Homicidal Ideation Homicidal Ideation: No Goal/Treatment Plan - Goal/Treatment Plan Need for Continued Stay: Remain at risks for inpatient hospitalization, Severe depression anxiety, Discharge may exacerbated symptoms, Severe functional impairment Progress Toward Problem(s) and Goals/Treatment Plan: * c/w current tx and plan * No weekend labs thus far * Vitals reviewed and noted below: 12/05/17 12/05/17 12/05/17 07:24 08:52 16:00 Temperature 98.0 F Pulse Rate 96 H 96 H 60 Respiratory 20 Rate Blood Pressure 134/90 134/90 124/64 Estimated Date of D/C: 12/08/17
[2017-12-06] MEDS: Insulin Lispro (humaLOG) MEDIUM Coverage SC SCH ×5 (10:09→23:59)
[2017-12-06] MEDS: Lithium Carbonate ER Tab 450 MG PO SCH (21:21)
[2017-12-07] MEDS: Levothyroxine 88 MCG TAB PO SCH (10:08)
[2017-12-07] MEDS: Insulin Lispro (humaLOG) MEDIUM Coverage SC SCH ×4 (10:08→22:05)
--- NOTE | 2017-12-07 16:36 | PCM.PYCHPN ---
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 Problems Identified/Issues Discussed: Suicide/ homicide prevention, past psychiatric h/o, current psychiatric symptoms , medical problems, risk/benefits and alternatives of medications, medications compliance, coping strategies, substance abuse h/o, relapse prevention, importance of follow up with psychiatrist and therapist, discharge plan. Medical Problems: DM Hypothyroidism HTN ?diabetic neuropathy will call podiatry consult Diagnostic Results: 11/27/17 07:56 11/27/17 08:00 Lab Results 11/27/17 08:00: Sodium 136, Potassium 3.7, Chloride 103, Carbon Dioxide 23, Anion Gap 14, BUN 12, Creatinine 0.5 L, Est GFR ( Amer) > 60, Est GFR ( Non-Af Amer) > 60, Random Glucose 111 H, Calcium 9.6, Total Bilirubin 1.1, AST 29, ALT 44, Alkaline Phosphatase 88, Total Protein 7.4, Albumin 4.2, Globulin 3.2, Albumin/Globulin Ratio 1.3, Triglycerides 100, Cholesterol 167, LDL Cholesterol Direct 124, HDL Cholesterol 34 11/27/17 07:57: TSH 3rd Generation 2.67 11/27/17 07:56: WBC 6.7 D, RBC 4.08, Hgb 12.5, Hct 37.0, MCV 90.7, MCH 30.6, MCHC 33.8, RDW 14.4, Plt Count 305, MPV 9.3, Gran % 61.0, Lymph % (Auto) 31.8, Ellis % (Auto) 4.2, Eos % (Auto) 2.7, Baso % (Auto) 0.3, Gran # 4.08, Lymph # 2.1 , Ellis # 0.3, Eos # 0.2, Baso # 0.02 11/27/17 07:15: POC Glucose (mg/dL) 122 H 11/26/17 21:40: POC Glucose (mg/dL) 147 H 11/26/17 17:18: POC Glucose (mg/dL) 129 H 11/26/17 12:50: [place] < 0.2 L 11/26/17 06:56: Urine Color Yellow, Urine Appearance Sl cloudy, Urine pH 6.0, Ur Specific [place] 1.025, Urine Protein Negative, Urine Glucose (UA) Negative, Urine Ketones Negative, Urine Blood Trace-intact H, Urine Nitrate Negative, Urine Bilirubin Negative, Urine Urobilinogen 0.2, Ur Leukocyte Esterase Moderate H, Urine RBC 0 - 2, Urine WBC 2 - 5, Ur Epithelial Cells 1 - 3, Urine Bacteria Rare 11/26/17 03:00: RPR Nonreactive 11/26/17 03:00: Free T4 1.34, TSH 3rd Generation 3.16 11/26/17 02:54: Urine Opiates Screen Negative, Urine Methadone Screen Negative, Ur Barbiturates Screen Negative, Ur Phencyclidine Scrn Negative, Ur Amphetamines Screen Negative, U Benzodiazepines Scrn Negative, U Oth Cocaine Metabols Negative, U Cannabinoids Screen Negative 11/26/17 02:50: Alcohol, Quantitative < 10 11/26/17 02:50: WBC 9.2, RBC 4.47, Hgb 13.7, Hct 40.9, MCV 91.5, MCH 30.6, MCHC 33.5, RDW 14.4, Plt Count 377, MPV 9.7 11/26/17 02:50: Sodium 142, Potassium 3.9, Chloride 102, Carbon Dioxide 27, Anion Gap 17, BUN 11, Creatinine 0.5 L, Est GFR ( Amer) > 60, Est GFR ( Non-Af Amer) > 60, Random Glucose 119 H, Calcium 10.2, Total Bilirubin 1.2, AST 39 H, ALT 50, Alkaline Phosphatase 98, Total Protein 8.5 H, Albumin 4.8, Globulin 3.8, Albumin/Globulin Ratio 1.3 Vital Signs Temp Pulse Resp BP Pulse Ox 11/26/17 16:00 68 133/67 11/26/17 07:23 58 L 16 164/78 H 100 11/26/17 02:25 98.1 F 60 17 160/87 H 100 Temp Pulse Resp BP Pulse Ox 97.9 F 66 20 112/67 100 11/30/17 07:07 11/30/17 07:07 11/30/17 07:07 11/30/17 07:07 11/26/17 07:23 Temp Pulse Resp BP Pulse Ox 97.9 F 58 L 20 112/59 L 100 12/02/17 07:50 12/02/17 16:16 12/02/17 07:50 12/02/17 16:16 11/26/17 07:23 Temp Pulse Resp BP Pulse Ox 97.7 F 64 20 122/79 100 12/03/17 07:45 12/03/17 10:34 12/03/17 07:45 12/03/17 10:34 11/26/17 07:23 Laboratory Results - last 24 hr 12/02/17 12/03/17 12/03/17 21:48 07:17 08:00 WBC RBC Hgb Hct MCV MCH MCHC RDW Plt Count MPV Gran % Lymph % (Auto) Ellis % (Auto) Eos % (Auto) Baso % (Auto) Gran # Lymph # Ellis # Eos # Baso # Sodium Potassium Chloride Carbon Dioxide Anion Gap BUN Creatinine Est GFR ( Amer) Est GFR (Non-Af Amer) POC Glucose (mg/dL) 136 H 76 Random Glucose Calcium Total Bilirubin AST ALT Alkaline Phosphatase Total Protein Albumin Globulin Albumin/Globulin Ratio Valproic Acid 87 12/03/17 12/03/17 12/03/17 09:30 10:30 10:30 WBC 5.9 RBC 4.05 Hgb 12.3 Hct 37.9 MCV 93.6 MCH 30.4 MCHC 32.5 RDW 14.2 Plt Count 248 MPV 10.4 Gran % 54.6 Lymph % (Auto) 37.5 H Ellis % (Auto) 4.6 Eos % (Auto) 3.1 Baso % (Auto) 0.2 Gran # 3.20 Lymph # 2.2 Ellis # 0.3 Eos # 0.2 Baso # 0.01 Sodium 139 Potassium 4.0 Chloride 102 Carbon Dioxide 25 Anion Gap 15 BUN 13 Creatinine 0.6 L Est GFR ( Amer) > 60 Est GFR (Non-Af Amer) > 60 POC Glucose (mg/dL) 95 Random Glucose 90 Calcium 9.7 Total Bilirubin 1.1 AST 27 ALT 36 Alkaline Phosphatase 70 Total Protein 6.9 Albumin 3.8 Globulin 3.1 Albumin/Globulin Ratio 1.3 Valproic Acid 12/03/17 11:30 WBC RBC Hgb Hct MCV MCH MCHC RDW Plt Count MPV Gran % Lymph % (Auto) Ellis % (Auto) Eos % (Auto) Baso % (Auto) Gran # Lymph # Ellis # Eos # Baso # Sodium Potassium Chloride Carbon Dioxide Anion Gap BUN Creatinine Est GFR ( Amer) Est GFR (Non-Af Amer) POC Glucose (mg/dL) 103 Random Glucose Calcium Total Bilirubin AST ALT Alkaline Phosphatase Total Protein Albumin Globulin Albumin/Globulin Ratio Valproic Acid Laboratory Results - last 24 hr 12/06/17 12/06/17 12/07/17 17:08 23:49 07:32 POC Glucose (mg/dL) 92 104 81 12/07/17 12/07/17 11:45 16:01 POC Glucose (mg/dL) 97 142 H Temp Pulse Resp BP Pulse Ox 98.6 F 54 L 18 95/48 L 100 12/07/17 07:13 12/07/17 10:19 12/07/17 07:13 12/07/17 10:19 12/07/17 07:13 DSM 5 Symptoms Update: This is a 56 years old female, multiple psychiatric admissions (more than 15), most recent was in [facility] in October 2017, pt who lives with her son and currently unemployed, came to the emergency room for psychiatric evaluation, pt most likely was noncompliant with medications, presented to be bizarre and disorganized, needed to have psych admission. 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 as per staff pt is more sedated and was ambulating with shuffling gait but PT did not recommend any PT at this time. neurontin will be on hold, will decrease dose of Trazodone depakote was decreased, will consider to add Seroquel or abilify gait is more steady, but pt still has Parkinsonian (shuffling) gait, no stiffness, no tremor. 12/03/17: pt was visited by Janeen [facility] [phone], pt has long h/o noncompliance, refused to go to [facility], lives with son, Janeen knows pt for about six months, now pt does not present at her baseline of functioning. 87 Depakote level 12/03/16 0.8 Golovin level 12/03/16 Impression: schizoaffective disorder, bipolar type Medication Change: Yes (depakote decreased, neurontin d/c, trazodone decresed) Medical Record Reviewed: Yes Consults ordered or reviewed: medical consult podiatry consult was called Mental Status Examination - Cognitive Function Orientation: Person, Place Memory: Impaired Attention: Poor Concentration: Poor Association: Loose Fund of Knowledge: Poor - Mood Mood: Euphoric - Affect Affect: Constricted, Other (labile) - Speech Speech: Pressured (some improvement) - Formal Thought Process Formal Thought Process: Hallucinations (denied today), Delusions, Paranoia, Loosening of associations ( disorganized, circumstantial ), Circumstantial - Suicidal Ideation Suicidal Ideation: No - Homicidal Ideation Homicidal Ideation: No Goal/Treatment Plan - Goal/Treatment Plan Need for Continued Stay: Remain at risks for inpatient hospitalization, Severe depression anxiety, Discharge may exacerbated symptoms, Severe functional impairment Progress Toward Problem(s) and Goals/Treatment Plan: Supportive therapy, group therapy, individual therapy Haldol Dec 100mg IM [id number], last dose was ~11/25/17 Cogentin 1 mg by mouth three times a day for possible EPS Golovin 300 mg PO am and 450mg hs for mood stabilization depakote 250mg po bid for mood stabilization Trazodone 50 mg by mouth daily at bedtime for insomnia neurontin d/c will continue all meds for medical issues SW consultation for discharge plan and social issues Family involvement Follow up on labs Will monitor closely Pt was educated about risk/benefits and alternatives of medications, coping strategies (safety plan, suicide prevention), relapse prevention, importance of follow up with psychiatrist and therapist, stay away from drugs/alcohol/smoking Estimated Date of D/C: 12/11/17
[2017-12-07] MEDS: Lithium Carbonate ER Tab 450 MG PO SCH (22:33)
[2017-12-08] MEDS: Levothyroxine 88 MCG TAB PO SCH (06:38)
[2017-12-08] MEDS: Insulin Lispro (humaLOG) MEDIUM Coverage SC SCH ×4 (09:46→21:42)
--- NOTE | 2017-12-08 16:21 | PCM.PYCHPN ---
Psychiatric Progress Note - Psychiatric Progress Note Patient seen today, length of contact: 30min Patient Chief Complaint: "I know I am at [place].... 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 Problems Identified/Issues Discussed: Suicide/ homicide prevention, past psychiatric h/o, current psychiatric symptoms , medical problems, risk/benefits and alternatives of medications, medications compliance, coping strategies, substance abuse h/o, relapse prevention, importance of follow up with psychiatrist and therapist, discharge plan. Medical Problems: DM Hypothyroidism HTN ?diabetic neuropathy podiatry consult appreciated Diagnostic Results: 11/27/17 07:56 11/27/17 08:00 Lab Results 11/27/17 08:00: Sodium 136, Potassium 3.7, Chloride 103, Carbon Dioxide 23, Anion Gap 14, BUN 12, Creatinine 0.5 L, Est GFR ( Amer) > 60, Est GFR ( Non-Af Amer) > 60, Random Glucose 111 H, Calcium 9.6, Total Bilirubin 1.1, AST 29, ALT 44, Alkaline Phosphatase 88, Total Protein 7.4, Albumin 4.2, Globulin 3.2, Albumin/Globulin Ratio 1.3, Triglycerides 100, Cholesterol 167, LDL Cholesterol Direct 124, HDL Cholesterol 34 11/27/17 07:57: TSH 3rd Generation 2.67 11/27/17 07:56: WBC 6.7 D, RBC 4.08, Hgb 12.5, Hct 37.0, MCV 90.7, MCH 30.6, MCHC 33.8, RDW 14.4, Plt Count 305, MPV 9.3, Gran % 61.0, Lymph % (Auto) 31.8, [place] % (Auto) 4.2, Eos % (Auto) 2.7, Baso % (Auto) 0.3, Gran # 4.08, Lymph # 2.1 , [place] # 0.3, Eos # 0.2, Baso # 0.02 11/27/17 07:15: POC Glucose (mg/dL) 122 H 11/26/17 21:40: POC Glucose (mg/dL) 147 H 11/26/17 17:18: POC Glucose (mg/dL) 129 H 11/26/17 12:50: [place] < 0.2 L 11/26/17 06:56: Urine Color Yellow, Urine Appearance Sl cloudy, Urine pH 6.0, Ur Specific [place] 1.025, Urine Protein Negative, Urine Glucose (UA) Negative, Urine Ketones Negative, Urine Blood Trace-intact H, Urine Nitrate Negative, Urine Bilirubin Negative, Urine Urobilinogen 0.2, Ur Leukocyte Esterase Moderate H, Urine RBC 0 - 2, Urine WBC 2 - 5, Ur Epithelial Cells 1 - 3, Urine Bacteria Rare 11/26/17 03:00: RPR Nonreactive 11/26/17 03:00: Free T4 1.34, TSH 3rd Generation 3.16 11/26/17 02:54: Urine Opiates Screen Negative, Urine Methadone Screen Negative, Ur Barbiturates Screen Negative, Ur Phencyclidine Scrn Negative, Ur Amphetamines Screen Negative, U Benzodiazepines Scrn Negative, U Oth Cocaine Metabols Negative, U Cannabinoids Screen Negative 11/26/17 02:50: Alcohol, Quantitative < 10 11/26/17 02:50: WBC 9.2, RBC 4.47, Hgb 13.7, Hct 40.9, MCV 91.5, MCH 30.6, MCHC 33.5, RDW 14.4, Plt Count 377, MPV 9.7 11/26/17 02:50: Sodium 142, Potassium 3.9, Chloride 102, Carbon Dioxide 27, Anion Gap 17, BUN 11, Creatinine 0.5 L, Est GFR ( Amer) > 60, Est GFR ( Non-Af Amer) > 60, Random Glucose 119 H, Calcium 10.2, Total Bilirubin 1.2, AST 39 H, ALT 50, Alkaline Phosphatase 98, Total Protein 8.5 H, Albumin 4.8, Globulin 3.8, Albumin/Globulin Ratio 1.3 Vital Signs Temp Pulse Resp BP Pulse Ox 11/26/17 16:00 68 133/67 11/26/17 07:23 58 L 16 164/78 H 100 11/26/17 02:25 98.1 F 60 17 160/87 H 100 Temp Pulse Resp BP Pulse Ox 97.9 F 66 20 112/67 100 11/30/17 07:07 11/30/17 07:07 11/30/17 07:07 11/30/17 07:07 11/26/17 07:23 Temp Pulse Resp BP Pulse Ox 97.9 F 58 L 20 112/59 L 100 12/02/17 07:50 12/02/17 16:16 12/02/17 07:50 12/02/17 16:16 11/26/17 07:23 Temp Pulse Resp BP Pulse Ox 97.7 F 64 20 122/79 100 12/03/17 07:45 12/03/17 10:34 12/03/17 07:45 12/03/17 10:34 11/26/17 07:23 Laboratory Results - last 24 hr 12/02/17 12/03/17 12/03/17 21:48 07:17 08:00 WBC RBC Hgb Hct MCV MCH MCHC RDW Plt Count MPV Gran % Lymph % (Auto) [place] % (Auto) Eos % (Auto) Baso % (Auto) Gran # Lymph # [place] # Eos # Baso # Sodium Potassium Chloride Carbon Dioxide Anion Gap BUN Creatinine Est GFR ( Amer) Est GFR (Non-Af Amer) POC Glucose (mg/dL) 136 H 76 Random Glucose Calcium Total Bilirubin AST ALT Alkaline Phosphatase Total Protein Albumin Globulin Albumin/Globulin Ratio Valproic Acid 87 12/03/17 12/03/17 12/03/17 09:30 10:30 10:30 WBC 5.9 RBC 4.05 Hgb 12.3 Hct 37.9 MCV 93.6 MCH 30.4 MCHC 32.5 RDW 14.2 Plt Count 248 MPV 10.4 Gran % 54.6 Lymph % (Auto) 37.5 H [place] % (Auto) 4.6 Eos % (Auto) 3.1 Baso % (Auto) 0.2 Gran # 3.20 Lymph # 2.2 [place] # 0.3 Eos # 0.2 Baso # 0.01 Sodium 139 Potassium 4.0 Chloride 102 Carbon Dioxide 25 Anion Gap 15 BUN 13 Creatinine 0.6 L Est GFR ( Amer) > 60 Est GFR (Non-Af Amer) > 60 POC Glucose (mg/dL) 95 Random Glucose 90 Calcium 9.7 Total Bilirubin 1.1 AST 27 ALT 36 Alkaline Phosphatase 70 Total Protein 6.9 Albumin 3.8 Globulin 3.1 Albumin/Globulin Ratio 1.3 Valproic Acid 12/03/17 11:30 WBC RBC Hgb Hct MCV MCH MCHC RDW Plt Count MPV Gran % Lymph % (Auto) [place] % (Auto) Eos % (Auto) Baso % (Auto) Gran # Lymph # [place] # Eos # Baso # Sodium Potassium Chloride Carbon Dioxide Anion Gap BUN Creatinine Est GFR ( Amer) Est GFR (Non-Af Amer) POC Glucose (mg/dL) 103 Random Glucose Calcium Total Bilirubin AST ALT Alkaline Phosphatase Total Protein Albumin Globulin Albumin/Globulin Ratio Valproic Acid Laboratory Results - last 24 hr 12/06/17 12/06/17 12/07/17 17:08 23:49 07:32 POC Glucose (mg/dL) 92 104 81 12/07/17 12/07/17 11:45 16:01 POC Glucose (mg/dL) 97 142 H Temp Pulse Resp BP Pulse Ox 98.6 F 54 L 18 95/48 L 100 12/07/17 07:13 12/07/17 10:19 12/07/17 07:13 12/07/17 10:19 12/07/17 07:13 Abnormal Lab Results 12/07/17 12/07/17 12/08/17 17:32 21:34 07:35 POC Glucose (mg/dL) 182 H 89 [place] 0.8 12/08/17 10:52 POC Glucose (mg/dL) 173 H [place] Temp Pulse Resp BP Pulse Ox 98.0 F 53 L 18 144/59 L 100 12/08/17 07:33 12/08/17 09:47 12/07/17 07:13 12/08/17 09:47 12/07/17 07:13 DSM 5 Symptoms Update: This is a 56 years old female, multiple psychiatric admissions (more than 15), most recent was in [facility] in October 2017, pt who lives with her son and currently unemployed, came to the emergency room for psychiatric evaluation, pt most likely was noncompliant with medications, presented to be bizarre and disorganized, needed to have psych admission. pt was seen today next to the nursing station with the nurse human relations manager , pt was disorganized even with tailor's aide unable to express herself and mumbling something incoherently, then had difficulties to stay focused, pt was jumping from one subject to another. pt's Minicog done, pt was not able to distribute the numbers on the clock, was not even able to repeat three words, not able to recall them. pt's gait is more steady, still has Parkinsonian ( shuffling) gait, no stiffness, no tremor. will order labs, ua for tomorrow. as per night nurse report pt needed to be medicated with IM yesterday because pt was threatening and pulled report from the wall. 12/03/17: pt was visited by Jane[facility] [phone], pt has long h/o noncompliance, refused to go to [facility], lives with son, Janeen knows pt for about six months, now pt does not present at her baseline of functioning. 87 Depakote level 12/03/16 0.8 [place] level 12/03/16 Impression: schizoaffective disorder, bipolar type Medication Change: Yes (seroquel started, ativan decressed) Medical Record Reviewed: Yes Consults ordered or reviewed: medical consult podiatry consult was called Mental Status Examination - Cognitive Function Orientation: Person, Place Memory: Impaired Attention: Poor Concentration: Poor Association: Loose Fund of Knowledge: Poor - Mood Mood: Euphoric - Affect Affect: Constricted, Other (labile) - Speech Speech: Pressured (some improvement) - Formal Thought Process Formal Thought Process: Hallucinations (denied today), Delusions, Paranoia, Loosening of associations ( disorganized, circumstantial ), Circumstantial - Suicidal Ideation Suicidal Ideation: No - Homicidal Ideation Homicidal Ideation: No Goal/Treatment Plan - Goal/Treatment Plan Need for Continued Stay: Remain at risks for inpatient hospitalization, Severe depression anxiety, Discharge may exacerbated symptoms, Severe functional impairment Progress Toward Problem(s) and Goals/Treatment Plan: Supportive therapy, group therapy, individual therapy Haldol Dec 100mg IM [id number], last dose was ~11/25/17 Cogentin 1 mg by mouth three times a day for possible EPS [place] 300 mg PO am and 450mg hs for mood stabilization depakote 250mg po bid for mood stabilization Trazodone d/c seroquel 50mg po hs neurontin d/c will continue all meds for medical issues SW consultation for discharge plan and social issues Family involvement Follow up on labs Will monitor closely Pt was educated about risk/benefits and alternatives of medications, coping strategies (safety plan, suicide prevention), relapse prevention, importance of follow up with psychiatrist and therapist, stay away from drugs/alcohol/smoking Estimated Date of D/C: 12/11/17
[2017-12-08] MEDS: Lithium Carbonate ER Tab 450 MG PO SCH (22:23)
[2017-12-09] MEDS: Levothyroxine 88 MCG TAB PO SCH (07:02)
[2017-12-09] MEDS: Insulin Lispro (humaLOG) MEDIUM Coverage SC SCH ×4 (07:30→22:37)
[2017-12-09 08:12] LABS: BASO # 0.01 K/mm3 (0.0-2.0); BASO % 0.2 % (0.0-3.0); EOS # 0.1 (0.0-0.7); EOS % 2.4 % (1.5-5.0); GRAN # 2.82 (1.4-6.5); GRAN % 51.2 % (50.0-68.0); HEMOGLOBIN 12.8 g/dL (12.0-16.0); LYMPH # 2.2 (1.2-3.4); LYMPH % 40.7 % (22.0-35.0); MEAN CELL VOLUME 91.2 fl (80.0-105.0); MEAN CORPUSCULAR HEMOGLOBIN 30.4 pg (25.0-35.0); MEAN CORPUSCULAR HGB CONC 33.3 g/dl (31.0-37.0); MEAN PLATELET VOLUME 10.3 fl (7.0-11.0); MONO # 0.3 (0.1-0.6); MONO % 5.5 % (1.0-6.0); RBC 4.21 10^6/uL (3.5-6.1); RED CELL DISTRIBUTION WIDTH 13.7 % (11.5-14.5); WHITE BLOOD COUNT 5.5 10^3/ul (4.5-11.0)
[2017-12-09 08:32] LABS: ALB/GLOB RATIO 1.2 (1.1-1.8); ALBUMIN 3.9 g/dL (3.0-4.8); ALT/SGPT 28 U/L (7-56); AST/SGOT 24 U/L (14-36); BLOOD UREA NITROGEN 9 mg/dL (7-21); CALCIUM 10.2 mg/dL (8.4-10.5); GFR AFRICAN-AMERICAN > 60; GFR NON-AFRICAN AMERICAN > 60
[2017-12-09] MEDS ORDERED: Magnesium Hydroxide Susp 30 ml UD PO PRN (14:11)
[2017-12-09] MEDS ORDERED: Alum-Mag Hydrox-Simethicone Susp (30 mL) PO PRN (14:11)
--- NOTE | 2017-12-09 15:40 | PCM.PYCHPN ---
Psychiatric Progress Note - Psychiatric Progress Note Patient seen today, length of contact: 30min Patient Chief Complaint: "I talked to my mother, I told her that it is very important, but hold on, what was I saying?" Problems Identified/Issues Discussed: Suicide/ homicide prevention, past psychiatric h/o, current psychiatric symptoms , medical problems, risk/benefits and alternatives of medications, medications compliance, coping strategies, substance abuse h/o, relapse prevention, importance of follow up with psychiatrist and therapist, discharge plan. Medical Problems: DM Hypothyroidism HTN ?diabetic neuropathy podiatry consult appreciated Diagnostic Results: 11/27/17 07:56 11/27/17 08:00 Lab Results 11/27/17 08:00: Sodium 136, Potassium 3.7, Chloride 103, Carbon Dioxide 23, Anion Gap 14, BUN 12, Creatinine 0.5 L, Est GFR ( Amer) > 60, Est GFR ( Non-Af Amer) > 60, Random Glucose 111 H, Calcium 9.6, Total Bilirubin 1.1, AST 29, ALT 44, Alkaline Phosphatase 88, Total Protein 7.4, Albumin 4.2, Globulin 3.2, Albumin/Globulin Ratio 1.3, Triglycerides 100, Cholesterol 167, LDL Cholesterol Direct 124, HDL Cholesterol 34 11/27/17 07:57: TSH 3rd Generation 2.67 11/27/17 07:56: WBC 6.7 D, RBC 4.08, Hgb 12.5, Hct 37.0, MCV 90.7, MCH 30.6, MCHC 33.8, RDW 14.4, Plt Count 305, MPV 9.3, Gran % 61.0, Lymph % (Auto) 31.8, Towns % (Auto) 4.2, Eos % (Auto) 2.7, Baso % (Auto) 0.3, Gran # 4.08, Lymph # 2.1 , Towns # 0.3, Eos # 0.2, Baso # 0.02 11/27/17 07:15: POC Glucose (mg/dL) 122 H 11/26/17 21:40: POC Glucose (mg/dL) 147 H 11/26/17 17:18: POC Glucose (mg/dL) 129 H 11/26/17 12:50: [place] < 0.2 L 11/26/17 06:56: Urine Color Yellow, Urine Appearance Sl cloudy, Urine pH 6.0, Ur Specific [place] 1.025, Urine Protein Negative, Urine Glucose (UA) Negative, Urine Ketones Negative, Urine Blood Trace-intact H, Urine Nitrate Negative, Urine Bilirubin Negative, Urine Urobilinogen 0.2, Ur Leukocyte Esterase Moderate H, Urine RBC 0 - 2, Urine WBC 2 - 5, Ur Epithelial Cells 1 - 3, Urine Bacteria Rare 11/26/17 03:00: RPR Nonreactive 11/26/17 03:00: Free T4 1.34, TSH 3rd Generation 3.16 11/26/17 02:54: Urine Opiates Screen Negative, Urine Methadone Screen Negative, Ur Barbiturates Screen Negative, Ur Phencyclidine Scrn Negative, Ur Amphetamines Screen Negative, U Benzodiazepines Scrn Negative, U Oth Cocaine Metabols Negative, U Cannabinoids Screen Negative 11/26/17 02:50: Alcohol, Quantitative < 10 11/26/17 02:50: WBC 9.2, RBC 4.47, Hgb 13.7, Hct 40.9, MCV 91.5, MCH 30.6, MCHC 33.5, RDW 14.4, Plt Count 377, MPV 9.7 11/26/17 02:50: Sodium 142, Potassium 3.9, Chloride 102, Carbon Dioxide 27, Anion Gap 17, BUN 11, Creatinine 0.5 L, Est GFR ( Amer) > 60, Est GFR ( Non-Af Amer) > 60, Random Glucose 119 H, Calcium 10.2, Total Bilirubin 1.2, AST 39 H, ALT 50, Alkaline Phosphatase 98, Total Protein 8.5 H, Albumin 4.8, Globulin 3.8, Albumin/Globulin Ratio 1.3 Vital Signs Temp Pulse Resp BP Pulse Ox 11/26/17 16:00 68 133/67 11/26/17 07:23 58 L 16 164/78 H 100 11/26/17 02:25 98.1 F 60 17 160/87 H 100 Temp Pulse Resp BP Pulse Ox 97.9 F 66 20 112/67 100 11/30/17 07:07 11/30/17 07:07 11/30/17 07:07 11/30/17 07:07 11/26/17 07:23 Temp Pulse Resp BP Pulse Ox 97.9 F 58 L 20 112/59 L 100 12/02/17 07:50 01/17/18 16:16 12/02/17 07:50 12/02/17 16:16 11/26/17 07:23 Temp Pulse Resp BP Pulse Ox 97.7 F 64 20 122/79 100 12/03/17 07:45 12/03/17 10:34 12/03/17 07:45 12/03/17 10:34 11/26/17 07:23 Laboratory Results - last 24 hr 12/02/17 12/03/17 12/03/17 21:48 07:17 08:00 WBC RBC Hgb Hct MCV MCH MCHC RDW Plt Count MPV Gran % Lymph % (Auto) Towns % (Auto) Eos % (Auto) Baso % (Auto) Gran # Lymph # Towns # Eos # Baso # Sodium Potassium Chloride Carbon Dioxide Anion Gap BUN Creatinine Est GFR ( Amer) Est GFR (Non-Af Amer) POC Glucose (mg/dL) 136 H 76 Random Glucose Calcium Total Bilirubin AST ALT Alkaline Phosphatase Total Protein Albumin Globulin Albumin/Globulin Ratio Valproic Acid 87 12/03/17 12/03/17 12/03/17 09:30 10:30 10:30 WBC 5.9 RBC 4.05 Hgb 12.3 Hct 37.9 MCV 93.6 MCH 30.4 MCHC 32.5 RDW 14.2 Plt Count 248 MPV 10.4 Gran % 54.6 Lymph % (Auto) 37.5 H Towns % (Auto) 4.6 Eos % (Auto) 3.1 Baso % (Auto) 0.2 Gran # 3.20 Lymph # 2.2 Towns # 0.3 Eos # 0.2 Baso # 0.01 Sodium 139 Potassium 4.0 Chloride 102 Carbon Dioxide 25 Anion Gap 15 BUN 13 Creatinine 0.6 L Est GFR ( Amer) > 60 Est GFR (Non-Af Amer) > 60 POC Glucose (mg/dL) 95 Random Glucose 90 Calcium 9.7 Total Bilirubin 1.1 AST 27 ALT 36 Alkaline Phosphatase 70 Total Protein 6.9 Albumin 3.8 Globulin 3.1 Albumin/Globulin Ratio 1.3 Valproic Acid 12/03/17 11:30 WBC RBC Hgb Hct MCV MCH MCHC RDW Plt Count MPV Gran % Lymph % (Auto) Towns % (Auto) Eos % (Auto) Baso % (Auto) Gran # Lymph # Towns # Eos # Baso # Sodium Potassium Chloride Carbon Dioxide Anion Gap BUN Creatinine Est GFR ( Amer) Est GFR (Non-Af Amer) POC Glucose (mg/dL) 103 Random Glucose Calcium Total Bilirubin AST ALT Alkaline Phosphatase Total Protein Albumin Globulin Albumin/Globulin Ratio Valproic Acid Laboratory Results - last 24 hr 12/06/17 12/06/17 12/07/17 17:08 23:49 07:32 POC Glucose (mg/dL) 92 104 81 12/07/17 12/07/17 11:45 16:01 POC Glucose (mg/dL) 97 142 H Temp Pulse Resp BP Pulse Ox 98.6 F 54 L 18 95/48 L 100 12/07/17 07:13 12/07/17 10:19 12/07/17 07:13 12/07/17 10:19 12/07/17 07:13 Abnormal Lab Results 12/07/17 12/07/17 12/08/17 17:32 21:34 07:35 POC Glucose (mg/dL) 182 H 89 [place] 0.8 12/08/17 10:52 POC Glucose (mg/dL) 173 H [place] Temp Pulse Resp BP Pulse Ox 98.0 F 53 L 18 144/59 L 100 12/08/17 07:33 12/08/17 09:47 12/07/17 07:13 12/08/17 09:47 12/07/17 07:13 Temp Pulse Resp BP Pulse Ox 97.3 F L 51 L 20 143/57 L 100 12/09/17 07:37 12/09/17 09:54 12/09/17 07:37 12/09/17 09:54 12/07/17 07:13 Laboratory Results - last 24 hr 12/08/17 12/08/17 12/09/17 16:36 21:31 07:17 WBC RBC Hgb Hct MCV MCH MCHC RDW Plt Count MPV Gran % Lymph % (Auto) Towns % (Auto) Eos % (Auto) Baso % (Auto) Gran # Lymph # Towns # Eos # Baso # Sodium Potassium Chloride Carbon Dioxide Anion Gap BUN Creatinine Est GFR ( Amer) Est GFR (Non-Af Amer) POC Glucose (mg/dL) 130 H 129 H 90 Random Glucose Calcium Total Bilirubin AST ALT Alkaline Phosphatase Total Protein Albumin Globulin Albumin/Globulin Ratio 12/09/17 12/09/17 12/09/17 07:45 07:45 10:57 WBC 5.5 RBC 4.21 Hgb 12.8 Hct 38.4 MCV 91.2 MCH 30.4 MCHC 33.3 RDW 13.7 Plt Count 132 MPV 10.3 Gran % 51.2 Lymph % (Auto) 40.7 H Towns % (Auto) 5.5 Eos % (Auto) 2.4 Baso % (Auto) 0.2 Gran # 2.82 Lymph # 2.2 Towns # 0.3 Eos # 0.1 Baso # 0.01 Sodium 142 Potassium 4.3 Chloride 104 Carbon Dioxide 28 Anion Gap 14 BUN 9 Creatinine 0.6 L Est GFR ( Amer) > 60 Est GFR (Non-Af Amer) > 60 POC Glucose (mg/dL) 137 H Random Glucose 99 Calcium 10.2 Total Bilirubin 0.9 AST 24 ALT 28 Alkaline Phosphatase 80 Total Protein 7.3 Albumin 3.9 Globulin 3.4 Albumin/Globulin Ratio 1.2 DSM 5 Symptoms Update: This is a 56 years old female, multiple psychiatric admissions (more than 15), most recent was in [facility] in October 2017, pt who lives with her son and currently unemployed, came to the emergency room for psychiatric evaluation, pt most likely was noncompliant with medications, presented to be bizarre and disorganized, needed to have psych admission. pt was seen today next to the nursing station with the nurse manager of environmental services LulyGill, pt was disorganized even with fork operator unable to express herself and mumbling something incoherently, then had difficulties to stay focused, pt was jumping from one subject to another. pt's Minicog done, pt was not able to distribute the numbers on the clock, was not even able to repeat three words, not able to recall them. pt's gait is more steady, still has Parkinsonian ( shuffling) gait, no stiffness, no tremor. will order labs, ua for tomorrow. as per night nurse report pt needed to be medicated with IM yesterday because pt was threatening and pulled report from the wall. 12/03/17: pt was visited by Janeen [facility] [phone], pt has long h/o noncompliance, refused to go to [facility], lives with son, Janeen knows pt for about six months, now pt does not present at her baseline of functioning. 87 Depakote level 12/03/16 0.8 [place] level 12/03/16 Impression: Medication Change: Yes (lithium decreased, depakote d/c, seroquel increased) Medical Record Reviewed: Yes Mental Status Examination - Cognitive Function Orientation: Person, Place Memory: Impaired Attention: Poor Concentration: Poor Association: Loose Fund of Knowledge: Poor - Mood Mood: Euphoric - Affect Affect: Constricted, Other (labile) - Speech Speech: Pressured (some improvement) - Formal Thought Process Formal Thought Process: Hallucinations (denied today), Delusions, Paranoia, Loosening of associations ( disorganized, circumstantial ), Circumstantial - Suicidal Ideation Suicidal Ideation: No - Homicidal Ideation Homicidal Ideation: No Goal/Treatment Plan - Goal/Treatment Plan Need for Continued Stay: Remain at risks for inpatient hospitalization, Severe depression anxiety, Discharge may exacerbated symptoms, Severe functional impairment Progress Toward Problem(s) and Goals/Treatment Plan: Supportive therapy, group therapy, individual therapy Haldol Dec 100mg IM [id number], last dose was ~11/25/17 Cogentin 1 mg by mouth three times a day for possible EPS [place] 300 mg PO am and 300mg hs for mood stabilization depakote d/c Trazodone d/c seroquel 100mg po amhs for disorganized thoughts neurontin d/c will continue all meds for medical issues SW consultation for discharge plan and social issues Family involvement Follow up on labs Will monitor closely Pt was educated about risk/benefits and alternatives of medications, coping strategies (safety plan, suicide prevention), relapse prevention, importance of follow up with psychiatrist and therapist, stay away from drugs/alcohol/smoking Estimated Date of D/C: 12/14/17
[2017-12-10] MEDS: Levothyroxine 88 MCG TAB PO SCH (05:17)
[2017-12-10] MEDS: Insulin Lispro (humaLOG) MEDIUM Coverage SC SCH ×4 (07:30→21:34)
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
[2017-12-11] MEDS: Levothyroxine 88 MCG TAB PO SCH (05:47)
[2017-12-11] MEDS: Insulin Lispro (humaLOG) MEDIUM Coverage SC SCH ×4 (07:45→21:40)
--- NOTE | 2017-12-11 17:58 | PCM.PYCHPN ---
Psychiatric Progress Note - Psychiatric Progress Note Patient seen today, length of contact: 30min Patient Chief Complaint: "I have a memory problems..." Problems Identified/Issues Discussed: Suicide/ homicide prevention, past psychiatric h/o, current psychiatric symptoms , medical problems, risk/benefits and alternatives of medications, medications compliance, coping strategies, substance abuse h/o, relapse prevention, importance of follow up with psychiatrist and therapist, discharge plan. Medical Problems: DM Hypothyroidism HTN ?diabetic neuropathy podiatry consult appreciated Diagnostic Results: 11/27/17 07:56 11/27/17 08:00 Lab Results 11/27/17 08:00: Sodium 136, Potassium 3.7, Chloride 103, Carbon Dioxide 23, Anion Gap 14, BUN 12, Creatinine 0.5 L, Est GFR ( Amer) > 60, Est GFR ( Non-Af Amer) > 60, Random Glucose 111 H, Calcium 9.6, Total Bilirubin 1.1, AST 29, ALT 44, Alkaline Phosphatase 88, Total Protein 7.4, Albumin 4.2, Globulin 3.2, Albumin/Globulin Ratio 1.3, Triglycerides 100, Cholesterol 167, LDL Cholesterol Direct 124, HDL Cholesterol 34 11/27/17 07:57: TSH 3rd Generation 2.67 11/27/17 07:56: WBC 6.7 D, RBC 4.08, Hgb 12.5, Hct 37.0, MCV 90.7, MCH 30.6, MCHC 33.8, RDW 14.4, Plt Count 305, MPV 9.3, Gran % 61.0, Lymph % (Auto) 31.8, [place] % (Auto) 4.2, Eos % (Auto) 2.7, Baso % (Auto) 0.3, Gran # 4.08, Lymph # 2.1 , [place] # 0.3, Eos # 0.2, Baso # 0.02 11/27/17 07:15: POC Glucose (mg/dL) 122 H 11/26/17 21:40: POC Glucose (mg/dL) 147 H 11/26/17 17:18: POC Glucose (mg/dL) 129 H 11/26/17 12:50: [place] < 0.2 L 11/26/17 06:56: Urine Color Yellow, Urine Appearance Sl cloudy, Urine pH 6.0, Ur Specific [place] 1.025, Urine Protein Negative, Urine Glucose (UA) Negative, Urine Ketones Negative, Urine Blood Trace-intact H, Urine Nitrate Negative, Urine Bilirubin Negative, Urine Urobilinogen 0.2, Ur Leukocyte Esterase Moderate H, Urine RBC 0 - 2, Urine WBC 2 - 5, Ur Epithelial Cells 1 - 3, Urine Bacteria Rare 11/26/17 03:00: RPR Nonreactive 11/26/17 03:00: Free T4 1.34, TSH 3rd Generation 3.16 11/26/17 02:54: Urine Opiates Screen Negative, Urine Methadone Screen Negative, Ur Barbiturates Screen Negative, Ur Phencyclidine Scrn Negative, Ur Amphetamines Screen Negative, U Benzodiazepines Scrn Negative, U Oth Cocaine Metabols Negative, U Cannabinoids Screen Negative 11/26/17 02:50: Alcohol, Quantitative < 10 11/26/17 02:50: WBC 9.2, RBC 4.47, Hgb 13.7, Hct 40.9, MCV 91.5, MCH 30.6, MCHC 33.5, RDW 14.4, Plt Count 377, MPV 9.7 11/26/17 02:50: Sodium 142, Potassium 3.9, Chloride 102, Carbon Dioxide 27, Anion Gap 17, BUN 11, Creatinine 0.5 L, Est GFR ( Amer) > 60, Est GFR ( Non-Af Amer) > 60, Random Glucose 119 H, Calcium 10.2, Total Bilirubin 1.2, AST 39 H, ALT 50, Alkaline Phosphatase 98, Total Protein 8.5 H, Albumin 4.8, Globulin 3.8, Albumin/Globulin Ratio 1.3 Vital Signs Temp Pulse Resp BP Pulse Ox 11/26/17 16:00 68 133/67 11/26/17 07:23 58 L 16 164/78 H 100 11/26/17 02:25 98.1 F 60 17 160/87 H 100 Temp Pulse Resp BP Pulse Ox 97.9 F 66 20 112/67 100 11/30/17 07:07 11/30/17 07:07 11/30/17 07:07 11/30/17 07:07 11/26/17 07:23 Temp Pulse Resp BP Pulse Ox 97.9 F 58 L 20 112/59 L 100 12/02/17 07:50 12/02/17 16:16 12/02/17 07:50 12/02/17 16:16 11/26/17 07:23 Temp Pulse Resp BP Pulse Ox 97.7 F 64 20 122/79 100 12/03/17 07:45 12/03/17 10:34 12/03/17 07:45 12/03/17 10:34 11/26/17 07:23 Laboratory Results - last 24 hr 12/02/17 12/03/17 12/03/17 21:48 07:17 08:00 WBC RBC Hgb Hct MCV MCH MCHC RDW Plt Count MPV Gran % Lymph % (Auto) [place] % (Auto) Eos % (Auto) Baso % (Auto) Gran # Lymph # [place] # Eos # Baso # Sodium Potassium Chloride Carbon Dioxide Anion Gap BUN Creatinine Est GFR ( Amer) Est GFR (Non-Af Amer) POC Glucose (mg/dL) 136 H 76 Random Glucose Calcium Total Bilirubin AST ALT Alkaline Phosphatase Total Protein Albumin Globulin Albumin/Globulin Ratio Valproic Acid 87 12/03/17 12/03/17 12/03/17 09:30 10:30 10:30 WBC 5.9 RBC 4.05 Hgb 12.3 Hct 37.9 MCV 93.6 MCH 30.4 MCHC 32.5 RDW 14.2 Plt Count 248 MPV 10.4 Gran % 54.6 Lymph % (Auto) 37.5 H [place] % (Auto) 4.6 Eos % (Auto) 3.1 Baso % (Auto) 0.2 Gran # 3.20 Lymph # 2.2 [place] # 0.3 Eos # 0.2 Baso # 0.01 Sodium 139 Potassium 4.0 Chloride 102 Carbon Dioxide 25 Anion Gap 15 BUN 13 Creatinine 0.6 L Est GFR ( Amer) > 60 Est GFR (Non-Af Amer) > 60 POC Glucose (mg/dL) 95 Random Glucose 90 Calcium 9.7 Total Bilirubin 1.1 AST 27 ALT 36 Alkaline Phosphatase 70 Total Protein 6.9 Albumin 3.8 Globulin 3.1 Albumin/Globulin Ratio 1.3 Valproic Acid 12/03/17 11:30 WBC RBC Hgb Hct MCV MCH MCHC RDW Plt Count MPV Gran % Lymph % (Auto) [place] % (Auto) Eos % (Auto) Baso % (Auto) Gran # Lymph # [place] # Eos # Baso # Sodium Potassium Chloride Carbon Dioxide Anion Gap BUN Creatinine Est GFR ( Amer) Est GFR (Non-Af Amer) POC Glucose (mg/dL) 103 Random Glucose Calcium Total Bilirubin AST ALT Alkaline Phosphatase Total Protein Albumin Globulin Albumin/Globulin Ratio Valproic Acid Laboratory Results - last 24 hr 12/06/17 12/06/17 12/07/17 17:08 23:49 07:32 POC Glucose (mg/dL) 92 104 81 12/07/17 12/07/17 11:45 16:01 POC Glucose (mg/dL) 97 142 H Temp Pulse Resp BP Pulse Ox 98.6 F 54 L 18 95/48 L 100 12/07/17 07:13 12/07/17 10:19 12/07/17 07:13 12/07/17 10:19 12/07/17 07:13 Abnormal Lab Results 12/07/17 12/07/17 12/08/17 17:32 21:34 07:35 POC Glucose (mg/dL) 182 H 89 [place] 0.8 12/08/17 10:52 POC Glucose (mg/dL) 173 H [place] Temp Pulse Resp BP Pulse Ox 98.0 F 53 L 18 144/59 L 100 12/08/17 07:33 12/08/17 09:47 12/07/17 07:13 12/08/17 09:47 12/07/17 07:13 Temp Pulse Resp BP Pulse Ox 97.3 F L 51 L 20 143/57 L 100 12/09/17 07:37 12/09/17 09:54 12/09/17 07:37 12/09/17 09:54 12/07/17 07:13 Laboratory Results - last 24 hr 12/08/17 12/08/17 12/09/17 16:36 21:31 07:17 WBC RBC Hgb Hct MCV MCH MCHC RDW Plt Count MPV Gran % Lymph % (Auto) [place] % (Auto) Eos % (Auto) Baso % (Auto) Gran # Lymph # [place] # Eos # Baso # Sodium Potassium Chloride Carbon Dioxide Anion Gap BUN Creatinine Est GFR ( Amer) Est GFR (Non-Af Amer) POC Glucose (mg/dL) 130 H 129 H 90 Random Glucose Calcium Total Bilirubin AST ALT Alkaline Phosphatase Total Protein Albumin Globulin Albumin/Globulin Ratio 12/09/17 12/09/17 12/09/17 07:45 07:45 10:57 WBC 5.5 RBC 4.21 Hgb 12.8 Hct 38.4 MCV 91.2 MCH 30.4 MCHC 33.3 RDW 13.7 Plt Count 132 MPV 10.3 Gran % 51.2 Lymph % (Auto) 40.7 H [place] % (Auto) 5.5 Eos % (Auto) 2.4 Baso % (Auto) 0.2 Gran # 2.82 Lymph # 2.2 [place] # 0.3 Eos # 0.1 Baso # 0.01 Sodium 142 Potassium 4.3 Chloride 104 Carbon Dioxide 28 Anion Gap 14 BUN 9 Creatinine 0.6 L Est GFR ( Amer) > 60 Est GFR (Non-Af Amer) > 60 POC Glucose (mg/dL) 137 H Random Glucose 99 Calcium 10.2 Total Bilirubin 0.9 AST 24 ALT 28 Alkaline Phosphatase 80 Total Protein 7.3 Albumin 3.9 Globulin 3.4 Albumin/Globulin Ratio 1.2 DSM 5 Symptoms Update: This is a 56 years old female, multiple psychiatric admissions (more than 15), most recent was in [facility] in October 2017, pt who lives with her son and currently unemployed, came to the emergency room for psychiatric evaluation, pt most likely was noncompliant with medications, presented to be bizarre and disorganized, needed to have psych admission. pt was seen today next to the nursing station with a Greek speaking nurse, pt was disorganized even with belting inspector, difficulties to stay focused during the conversation, pt could start with the topic of being upset, then pt started to cry about her financial situation, then in the middle of her crying pt started to smile very widely. as per staff pt was up all night long, needed to be medicated with IM of Ativan. pt refused to take seroquel, after explanation to the pt about seroquel necessity, pt agreed. pt's gait is more steady, still has Parkinsonian (shuffling) gait, no stiffness , no tremor. 12/03/17: pt was visited by Janeen [facility] [phone], pt has long h/o noncompliance, refused to go to [facility], lives with son, Janeen knows pt for about six months, now pt does not present at her baseline of functioning. 87 Depakote level 12/03/16 0.8 [place] level 12/03/16 Impression: schizoaffective, bipolar type Medication Change: Yes (seroquel increased ) Medical Record Reviewed: Yes Consults ordered or reviewed: medical consult podiatry consult was called Mental Status Examination - Cognitive Function Orientation: Person, Place Memory: Impaired Attention: Poor Concentration: Poor Association: Loose Fund of Knowledge: Poor - Mood Mood: Euphoric - Affect Affect: Constricted, Other (labile) - Speech Speech: Pressured (some improvement) - Formal Thought Process Formal Thought Process: Hallucinations (denied today), Delusions, Paranoia, Loosening of associations ( disorganized, circumstantial ), Circumstantial - Suicidal Ideation Suicidal Ideation: No - Homicidal Ideation Homicidal Ideation: No Goal/Treatment Plan - Goal/Treatment Plan Need for Continued Stay: Remain at risks for inpatient hospitalization, Severe depression anxiety, Discharge may exacerbated symptoms, Severe functional impairment Progress Toward Problem(s) and Goals/Treatment Plan: Supportive therapy, group therapy, individual therapy Haldol Dec 100mg IM [id number], last dose was ~11/25/17 Cogentin 1 mg by mouth two times a day for possible EPS Jell[place] 300 mg PO am and 300mg hs for mood stabilization depakote d/c, pt was very drowsy Trazodone d/c pt was very drowsy seroquel 200mg po amhs for disorganized thoughts neurontin d/c will continue all meds for medical issues SW consultation for discharge plan and social issues Family involvement, consider a family meeting Follow up on labs Will monitor closely Pt was educated about risk/benefits and alternatives of medications, coping strategies (safety plan, suicide prevention), relapse prevention, importance of follow up with psychiatrist and therapist, stay away from drugs/alcohol/smoking Estimated Date of D/C: 12/14/17
[2017-12-11 22:54] LABS: URINE BILIRUBIN NEGATIVE (NEGATIVE); URINE BLOOD NEGATIVE (NEGATIVE); URINE GLUCOSE (UA) NEGATIVE (NEGATIVE); URINE LEUKOCYTE ESTERASE MODERATE Leu/uL (NEGATIVE); URINE NITRATE NEGATIVE (NEGATIVE); URINE PROTEIN NEGATIVE mg/dL (<30 mg/dL); URINE UROBILINOGEN 0.2 E.U./dL (<1 E.U./dL)
[2017-12-11 22:55] LABS: URINE APPEARANCE CLEAR (CLEAR); URINE COLOR STRAW (YELLOW)
[2017-12-11 23:03] LABS: URINE BACTERIA NEG (NEG); URINE EPITHELIAL CELLS 0 - 2 /hpf (0-5); URINE RBC NEGATIVE /hpf (0-2)
[2017-12-12] MEDS: Levothyroxine 88 MCG TAB PO SCH (05:36)
[2017-12-12] MEDS: Insulin Lispro (humaLOG) MEDIUM Coverage SC SCH ×4 (09:14→21:39)
--- NOTE | 2017-12-12 09:31 | PCM.PYCHPN ---
Psychiatric Progress Note - Psychiatric Progress Note Patient seen today, length of contact: 25 min Patient Chief Complaint: "worried and upset" Problems Identified/Issues Discussed: I reviewed recent notes, patient is very familiar to me from prior interviews on the unit last weekend and the weekend prior. She remains disorganized but oriented x3. Thought process is flighty and she continues to be labile as well as oddly related. She is tearful, "worried and upset" because she felt a staff member was making fun of her. Patient could be consoled by this provider but this paranoia may present again. She denies any new pain or discomfort. Again she intersperses some of her responses with Ecuadorean but does this a little less than last week. Staff notes from yesterday morning indicate that security was called because patient became agitated and tried to kick nurse when she wasn't permitted in the conference room. She remains unpredictable. Diagnostic Results: Schizoaffective Disorder, Bipolar type Medication Change: Yes (seroquel increased ) Medical Record Reviewed: Yes Mental Status Examination - Cognitive Function Orientation: Person, Place Memory: Impaired Attention: Poor Concentration: Poor Association: Loose Fund of Knowledge: Poor - Mood Mood: Euphoric ("worried and upset") - Affect Affect: Constricted, Other (labile) - Speech Speech: Pressured (some improvement) - Formal Thought Process Formal Thought Process: Hallucinations (denied today), Delusions, Paranoia, Loosening of associations ( disorganized, circumstantial ), Circumstantial - Suicidal Ideation Suicidal Ideation: No - Homicidal Ideation Homicidal Ideation: No Goal/Treatment Plan - Goal/Treatment Plan Need for Continued Stay: Remain at risks for inpatient hospitalization, Severe depression anxiety, Discharge may exacerbated symptoms, Severe functional impairment Progress Toward Problem(s) and Goals/Treatment Plan: * c/w current tx and plan * No weekend labs thus far * Vitals reviewed and noted below: 12/11/17 12/11/17 12/11/17 07:00 08:31 16:30 Temperature 97.3 F L Pulse Rate 56 L 62 61 Respiratory 18 Rate Blood Pressure 123/74 134/69 Estimated Date of D/C: 12/14/17
[2017-12-13] MEDS: Levothyroxine 88 MCG TAB PO SCH (07:35)
[2017-12-13] MEDS: Insulin Lispro (humaLOG) MEDIUM Coverage SC SCH ×4 (09:24→21:49)
--- NOTE | 2017-12-13 09:48 | PCM.PYCHPN ---
Psychiatric Progress Note - Psychiatric Progress Note Patient seen today, length of contact: 25 min Patient Chief Complaint: "worried and upset" Problems Identified/Issues Discussed: I reviewed recent notes, patient remains disorganized and labile with periods of opposition and irritability towards staff members. She refused Seroquel last night and was agitated and loud during this time. Required IM Ativan to help calm her down. Thought process is flighty and she continues to be brittle and easily escalates. She can be guo, paranoid and easily offended. Patient is pleasant and smiling with me this morning however, as noted, this can easily change. Explains she doesn't want to take seroquel because she doesn' t want pancreatitis. It's possible she is also referring to Seroquel's association with raising sugars. Patient is not able to verbalize any medications she would prefer instead and nursing notes indicate that patient accepted Seroquel this morning. She denies any new pain or discomfort. Again she intersperses some of her responses with Upper Sorbian. I agree with staff, patient reverts back to Upper Sorbian when she is more excited/angry. Mostly responds in [place]araguan today. She remains oddly related and unpredictable. Diagnostic Results: Schizoaffective Disorder, Bipolar type Medication Change: No ( ) Medical Record Reviewed: Yes Mental Status Examination - Cognitive Function Orientation: Person, Place Memory: Impaired Attention: Poor Concentration: Poor Association: Loose Fund of Knowledge: Poor - Mood Mood: Euphoric ("worried and upset") - Affect Affect: Constricted, Other (labile) - Speech Speech: Pressured (some improvement) - Formal Thought Process Formal Thought Process: Hallucinations (denied today), Delusions, Paranoia, Loosening of associations ( disorganized, circumstantial ), Circumstantial - Suicidal Ideation Suicidal Ideation: No - Homicidal Ideation Homicidal Ideation: No Goal/Treatment Plan - Goal/Treatment Plan Need for Continued Stay: Remain at risks for inpatient hospitalization, Severe depression anxiety, Discharge may exacerbated symptoms, Severe functional impairment Progress Toward Problem(s) and Goals/Treatment Plan: * c/w current tx and plan * No weekend labs thus far * Consider another medication for mood control if patient continues to refuse Seroquel, patient did take AM dose today though refused it last night. * Vitals reviewed and noted below: 12/13/17 07:49 Temperature 97.9 F Pulse Rate 54 L Respiratory 20 Rate Blood Pressure 131/74 Estimated Date of D/C: 12/14/17
[2017-12-14] MEDS: Levothyroxine 88 MCG TAB PO SCH (05:43)
[2017-12-14] MEDS: Insulin Lispro (humaLOG) MEDIUM Coverage SC SCH ×4 (07:58→22:10)
--- NOTE | 2017-12-14 10:44 | PCM.BM ---
<Kristine Catalan - Last Filed: 12/14/17 10:39> Treatment Plan Problems - Problems identified on initial assessmt ALTERED THOUGHT PROCESS Date Initiated: 11/26/17 (met for tx plan review) Time Initiated: 14:00 Assessment reference: NA Status: Active Priority: 1 Comment: altered thought process is improving.c/o feeling drowsy with the medication ALTERED SLEEP PATTERN Date Initiated: 11/26/17 (met for tx plan review) Time Initiated: 14:00 Assessment reference: NA Status: Active Priority: 2 Comment: sleeping pattern is improving INEFFECTIVE COPING Date Initiated: 11/26/17 (met for tx plan review) Time Initiated: 14:00 Assessment reference: NA Status: Active Priority: 3 Comment: coping skills is improving Treatment assets and liabiliti Patient Assests: cooperative, ADL independent, cognitively intact Patient Liabilities: poor support system, medical problems, language/speech - Milieu Protocol Maintain good personal hygiene: every shift Encourage regular showers, every shift Remind patient to perform daily oral care, every shift Assist patient to perform ADL's Maintain personal safety: every shift Educate patient to report safety concerns to staff, every shift Monitor environment for contraband/sharps Medication safety: Monitor for expected outcome, potential side effects: every shift, Assess barriers to learning: every shift, Assess readiness for medication education: every shift Milieu Narrative: * c/w current tx and plan * No weekend labs thus far * Consider another medication for mood control if patient continues to refuse Seroquel, patient did take AM dose today though refused it last night. * Vitals reviewed and noted below: 12/13/17 07:49 Temperature 97.9 F Pulse Rate 54 L Respiratory 20 Rate Blood Pressure 131/74 Family Contact Family involvement: Patient does not wish Family/SO involvement Discharge/Continuing Care - Education Needs Education Needs: Patient Medication, Patient Diagnosis/Disease Process, Patient Coping Skills, Patient Community resources, Patient Activities of Daily Living, Patient Nutrition, Patient Health Practices/Safety, Patient Personal Hygiene/ Grooming, Patient Aftercare Safety Plan - Discharge Discharge Criteria: Tolerates medication w/o severe side effects, Free of paranoid thoughts, Free of agitation, Normal sleep pattern, Ability to care for self, No longer exhibiting s/s of withdrawal, Reduction of target symptoms Discharge to:: Home - Treatment Team Participation Patient/Family/SO Statement: * c/w current tx and plan * No weekend labs thus far * Consider another medication for mood control if patient continues to refuse Seroquel, patient did take AM dose today though refused it last night. * Vitals reviewed and noted below: 12/13/17 07:49 Temperature 97.9 F Pulse Rate 54 L Respiratory 20 Rate Blood Pressure 131/74 Treatment Plan Review - Problem ALTERED THOUGHT PROCESS Time Initiated: 14:00 ALTERED SLEEP PATTERN Time Initiated: 14:00 INEFFECTIVE COPING Time Initiated: 14:00 <Lizette Thorpe - Last Filed: 12/14/17 14:49> - Diagnosis (1) Bipolar affective disorder Status: Acute Interventions: 12/14/17 14:48 Psychoeducation Psychopharmacology/adjustment of medications as needed/ monitoring possible side effects Monitor blood level of mood stabilizers Evaluate pt on daily basis Compliance with medications and follow up appointments Suicide and homicide risk assessment and prevention, coping strategies, safety plan Relapse prevention Reduction of symptoms Improve functional status Family involvement As outpatient: cognitive behavioral therapy pt has some improvement with presentation meds adjusted 12/14/17 14:48 12/14/17 14:49 thought process is better organized
--- NOTE | 2017-12-14 15:06 | PCM.PYCHPN ---
Psychiatric Progress Note - Psychiatric Progress Note Patient seen today, length of contact: 30min Patient Chief Complaint: "I did not take seroquel before, I don't want to take it..." Problems Identified/Issues Discussed: Suicide/ homicide prevention, past psychiatric h/o, current psychiatric symptoms , medical problems, risk/benefits and alternatives of medications, medications compliance, coping strategies, substance abuse h/o, relapse prevention, importance of follow up with psychiatrist and therapist, discharge plan. Medical Problems: DM Hypothyroidism HTN ?diabetic neuropathy podiatry consult appreciated Diagnostic Results: 11/27/17 07:56 11/27/17 08:00 Lab Results 11/27/17 08:00: Sodium 136, Potassium 3.7, Chloride 103, Carbon Dioxide 23, Anion Gap 14, BUN 12, Creatinine 0.5 L, Est GFR ( Amer) > 60, Est GFR ( Non-Af Amer) > 60, Random Glucose 111 H, Calcium 9.6, Total Bilirubin 1.1, AST 29, ALT 44, Alkaline Phosphatase 88, Total Protein 7.4, Albumin 4.2, Globulin 3.2, Albumin/Globulin Ratio 1.3, Triglycerides 100, Cholesterol 167, LDL Cholesterol Direct 124, HDL Cholesterol 34 11/27/17 07:57: TSH 3rd Generation 2.67 11/27/17 07:56: WBC 6.7 D, RBC 4.08, Hgb 12.5, Hct 37.0, MCV 90.7, MCH 30.6, MCHC 33.8, RDW 14.4, Plt Count 305, MPV 9.3, Gran % 61.0, Lymph % (Auto) 31.8, [place] % (Auto) 4.2, Eos % (Auto) 2.7, Baso % (Auto) 0.3, Gran # 4.08, Lymph # 2.1 , [place] # 0.3, Eos # 0.2, Baso # 0.02 11/27/17 07:15: POC Glucose (mg/dL) 122 H 11/26/17 21:40: POC Glucose (mg/dL) 147 H 11/26/17 17:18: POC Glucose (mg/dL) 129 H 11/26/17 12:50: [place] < 0.2 L 11/26/17 06:56: Urine Color Yellow, Urine Appearance Sl cloudy, Urine pH 6.0, Ur Specific [place] 1.025, Urine Protein Negative, Urine Glucose (UA) Negative, Urine Ketones Negative, Urine Blood Trace-intact H, Urine Nitrate Negative, Urine Bilirubin Negative, Urine Urobilinogen 0.2, Ur Leukocyte Esterase Moderate H, Urine RBC 0 - 2, Urine WBC 2 - 5, Ur Epithelial Cells 1 - 3, Urine Bacteria Rare 11/26/17 03:00: RPR Nonreactive 11/26/17 03:00: Free T4 1.34, TSH 3rd Generation 3.16 11/26/17 02:54: Urine Opiates Screen Negative, Urine Methadone Screen Negative, Ur Barbiturates Screen Negative, Ur Phencyclidine Scrn Negative, Ur Amphetamines Screen Negative, U Benzodiazepines Scrn Negative, U Oth Cocaine Metabols Negative, U Cannabinoids Screen Negative 11/26/17 02:50: Alcohol, Quantitative < 10 11/26/17 02:50: WBC 9.2, RBC 4.47, Hgb 13.7, Hct 40.9, MCV 91.5, MCH 30.6, MCHC 33.5, RDW 14.4, Plt Count 377, MPV 9.7 11/26/17 02:50: Sodium 142, Potassium 3.9, Chloride 102, Carbon Dioxide 27, Anion Gap 17, BUN 11, Creatinine 0.5 L, Est GFR ( Amer) > 60, Est GFR ( Non-Af Amer) > 60, Random Glucose 119 H, Calcium 10.2, Total Bilirubin 1.2, AST 39 H, ALT 50, Alkaline Phosphatase 98, Total Protein 8.5 H, Albumin 4.8, Globulin 3.8, Albumin/Globulin Ratio 1.3 Vital Signs Temp Pulse Resp BP Pulse Ox 11/26/17 16:00 68 133/67 11/26/17 07:23 58 L 16 164/78 H 100 11/26/17 02:25 98.1 F 60 17 160/87 H 100 Temp Pulse Resp BP Pulse Ox 97.9 F 66 20 112/67 100 11/30/17 07:07 11/30/17 07:07 11/30/17 07:07 11/30/17 07:07 11/26/17 07:23 Temp Pulse Resp BP Pulse Ox 97.9 F 58 L 20 112/59 L 100 12/02/17 07:50 12/02/17 16:16 12/02/17 07:50 12/02/17 16:16 11/26/17 07:23 Temp Pulse Resp BP Pulse Ox 97.7 F 64 20 122/79 100 12/03/17 07:45 12/03/17 10:34 12/03/17 07:45 12/03/17 10:34 11/26/17 07:23 Laboratory Results - last 24 hr 12/02/17 12/03/17 12/03/17 21:48 07:17 08:00 WBC RBC Hgb Hct MCV MCH MCHC RDW Plt Count MPV Gran % Lymph % (Auto) [place] % (Auto) Eos % (Auto) Baso % (Auto) Gran # Lymph # [place] # Eos # Baso # Sodium Potassium Chloride Carbon Dioxide Anion Gap BUN Creatinine Est GFR ( Amer) Est GFR (Non-Af Amer) POC Glucose (mg/dL) 136 H 76 Random Glucose Calcium Total Bilirubin AST ALT Alkaline Phosphatase Total Protein Albumin Globulin Albumin/Globulin Ratio Valproic Acid 87 12/03/17 12/03/17 12/03/17 09:30 10:30 10:30 WBC 5.9 RBC 4.05 Hgb 12.3 Hct 37.9 MCV 93.6 MCH 30.4 MCHC 32.5 RDW 14.2 Plt Count 248 MPV 10.4 Gran % 54.6 Lymph % (Auto) 37.5 H [place] % (Auto) 4.6 Eos % (Auto) 3.1 Baso % (Auto) 0.2 Gran # 3.20 Lymph # 2.2 [place] # 0.3 Eos # 0.2 Baso # 0.01 Sodium 139 Potassium 4.0 Chloride 102 Carbon Dioxide 25 Anion Gap 15 BUN 13 Creatinine 0.6 L Est GFR ( Amer) > 60 Est GFR (Non-Af Amer) > 60 POC Glucose (mg/dL) 95 Random Glucose 90 Calcium 9.7 Total Bilirubin 1.1 AST 27 ALT 36 Alkaline Phosphatase 70 Total Protein 6.9 Albumin 3.8 Globulin 3.1 Albumin/Globulin Ratio 1.3 Valproic Acid 12/03/17 11:30 WBC RBC Hgb Hct MCV MCH MCHC RDW Plt Count MPV Gran % Lymph % (Auto) [place] % (Auto) Eos % (Auto) Baso % (Auto) Gran # Lymph # [place] # Eos # Baso # Sodium Potassium Chloride Carbon Dioxide Anion Gap BUN Creatinine Est GFR ( Amer) Est GFR (Non-Af Amer) POC Glucose (mg/dL) 103 Random Glucose Calcium Total Bilirubin AST ALT Alkaline Phosphatase Total Protein Albumin Globulin Albumin/Globulin Ratio Valproic Acid Laboratory Results - last 24 hr 12/06/17 12/06/17 12/07/17 17:08 23:49 07:32 POC Glucose (mg/dL) 92 104 81 12/07/17 12/07/17 11:45 16:01 POC Glucose (mg/dL) 97 142 H Temp Pulse Resp BP Pulse Ox 98.6 F 54 L 18 95/48 L 100 12/07/17 07:13 12/07/17 10:19 12/07/17 07:13 12/07/17 10:19 12/07/17 07:13 Abnormal Lab Results 12/07/17 12/07/17 12/08/17 17:32 21:34 07:35 POC Glucose (mg/dL) 182 H 89 [place] 0.8 12/08/17 10:52 POC Glucose (mg/dL) 173 H [place] Temp Pulse Resp BP Pulse Ox 98.0 F 53 L 18 144/59 L 100 12/08/17 07:33 12/08/17 09:47 12/07/17 07:13 12/08/17 09:47 12/07/17 07:13 Temp Pulse Resp BP Pulse Ox 97.3 F L 51 L 20 143/57 L 100 12/09/17 07:37 12/09/17 09:54 12/09/17 07:37 12/09/17 09:54 12/07/17 07:13 Laboratory Results - last 24 hr 12/08/17 12/08/17 12/09/17 16:36 21:31 07:17 WBC RBC Hgb Hct MCV MCH MCHC RDW Plt Count MPV Gran % Lymph % (Auto) [place] % (Auto) Eos % (Auto) Baso % (Auto) Gran # Lymph # [place] # Eos # Baso # Sodium Potassium Chloride Carbon Dioxide Anion Gap BUN Creatinine Est GFR ( Amer) Est GFR (Non-Af Amer) POC Glucose (mg/dL) 130 H 129 H 90 Random Glucose Calcium Total Bilirubin AST ALT Alkaline Phosphatase Total Protein Albumin Globulin Albumin/Globulin Ratio 12/09/17 12/09/1712/09/18 07:45 07:45 10:57 WBC 5.5 RBC 4.21 Hgb 12.8 Hct 38.4 MCV 91.2 MCH 30.4 MCHC 33.3 RDW 13.7 Plt Count 132 MPV 10.3 Gran % 51.2 Lymph % (Auto) 40.7 H [place] % (Auto) 5.5 Eos % (Auto) 2.4 Baso % (Auto) 0.2 Gran # 2.82 Lymph # 2.2 [place] # 0.3 Eos # 0.1 Baso # 0.01 Sodium 142 Potassium 4.3 Chloride 104 Carbon Dioxide 28 Anion Gap 14 BUN 9 Creatinine 0.6 L Est GFR ( Amer) > 60 Est GFR (Non-Af Amer) > 60 POC Glucose (mg/dL) 137 H Random Glucose 99 Calcium 10.2 Total Bilirubin 0.9 AST 24 ALT 28 Alkaline Phosphatase 80 Total Protein 7.3 Albumin 3.9 Globulin 3.4 Albumin/Globulin Ratio 1.2 DSM 5 Symptoms Update: This is a 56 years old female, multiple psychiatric admissions (more than 15), most recent was in [facility] in October 2017, pt who lives with her son and currently unemployed, came to the emergency room for psychiatric evaluation, pt most likely was noncompliant with medications, presented to be bizarre and disorganized, needed to have psych admission. pt was seen today at the treatment team meeting, pt was fixated on seroquel and she did not want to take it because it gives her drowsiness. pt was educated about ER of seroquel at , pt was willing to take it. pt was also educated about zyprexa but pt refused to take it. based on report pt was doing much better over the weekend today was the first night when pt had uninterrupted sleep. SW discussed ICMS services at am pt agreed, during the tx team pt refused. thought process is better organized. will consider d/c tomorrow. pt's gait is more steady, still has Parkinsonian (shuffling) gait, no stiffness , no tremor. 12/03/17: pt was visited by Janeen [facility] [phone], pt has long h/o noncompliance, refused to go to [facility], lives with son, Janeen knows pt for about six months. 87 Depakote level 12/03/16 0.8 [place] level 12/03/16 Impression: schizoaffective, bipolar type Medication Change: Yes (seroquel ER 200mg hs) Medical Record Reviewed: Yes Consults ordered or reviewed: medical consult podiatry consult was called Mental Status Examination - Cognitive Function Orientation: Person, Place Memory: Impaired Attention: Poor (some improvement) Concentration: Poor (some improvement) Association: Loose Fund of Knowledge: Poor - Mood Mood: Euphoric ("worried and upset") - Affect Affect: Constricted, Other (labile) - Speech Speech: Pressured (some improvement) - Formal Thought Process Formal Thought Process: Hallucinations (denied today), Delusions, Paranoia, Loosening of associations ( disorganized, circumstantial ), Circumstantial - Suicidal Ideation Suicidal Ideation: No - Homicidal Ideation Homicidal Ideation: No Goal/Treatment Plan - Goal/Treatment Plan Need for Continued Stay: Remain at risks for inpatient hospitalization, Severe depression anxiety, Discharge may exacerbated symptoms, Severe functional impairment Progress Toward Problem(s) and Goals/Treatment Plan: Supportive therapy, group therapy, individual therapy Haldol Dec 100mg IM [id number], last dose was ~11/25/17 Cogentin 1 mg by mouth two times a day for possible EPS [place] 300 mg PO am and 300mg hs for mood stabilization depakote d/c, pt was very drowsy Trazodone d/c pt was very drowsy seroquel ER 200mg po hs for disorganized thoughts neurontin d/c will continue all meds for medical issues SW consultation for discharge plan and social issues Family involvement, consider a family meeting Follow up on labs Will monitor closely Pt was educated about risk/benefits and alternatives of medications, coping strategies (safety plan, suicide prevention), relapse prevention, importance of follow up with psychiatrist and therapist, stay away from drugs/alcohol/smoking Estimated Date of D/C: 12/16/17
[2017-12-14] MEDS: OLANZapine 5 mg Disintegrating Tab PO SCH (21:28)
[2017-12-14] MEDS ORDERED: QUEtiapine 200 mg XR Tab PO SCH (22:00)
[2017-12-15] MEDS: Levothyroxine 88 MCG TAB PO SCH (06:30)
[2017-12-15] MEDS: Insulin Lispro (humaLOG) MEDIUM Coverage SC SCH ×4 (09:44→22:06)
--- NOTE | 2017-12-15 14:47 | PCM.PYCHPN ---
Psychiatric Progress Note - Psychiatric Progress Note Patient seen today, length of contact: 30min Patient Chief Complaint: "I feel much better" Problems Identified/Issues Discussed: Suicide/ homicide prevention, past psychiatric h/o, current psychiatric symptoms , medical problems, risk/benefits and alternatives of medications, medications compliance, coping strategies, substance abuse h/o, relapse prevention, importance of follow up with psychiatrist and therapist, discharge plan. Medical Problems: DM Hypothyroidism HTN ?diabetic neuropathy podiatry consult appreciated Diagnostic Results: 11/27/17 07:56 11/27/17 08:00 Lab Results 11/27/17 08:00: Sodium 136, Potassium 3.7, Chloride 103, Carbon Dioxide 23, Anion Gap 14, BUN 12, Creatinine 0.5 L, Est GFR ( Amer) > 60, Est GFR ( Non-Af Amer) > 60, Random Glucose 111 H, Calcium 9.6, Total Bilirubin 1.1, AST 29, ALT 44, Alkaline Phosphatase 88, Total Protein 7.4, Albumin 4.2, Globulin 3.2, Albumin/Globulin Ratio 1.3, Triglycerides 100, Cholesterol 167, LDL Cholesterol Direct 124, HDL Cholesterol 34 11/27/17 07:57: TSH 3rd Generation 2.67 11/27/17 07:56: WBC 6.7 D, RBC 4.08, Hgb 12.5, Hct 37.0, MCV 90.7, MCH 30.6, MCHC 33.8, RDW 14.4, Plt Count 305, MPV 9.3, Gran % 61.0, Lymph % (Auto) 31.8, [place] % (Auto) 4.2, Eos % (Auto) 2.7, Baso % (Auto) 0.3, Gran # 4.08, Lymph # 2.1 , [place] # 0.3, Eos # 0.2, Baso # 0.02 11/27/17 07:15: POC Glucose (mg/dL) 122 H 11/26/17 21:40: POC Glucose (mg/dL) 147 H 11/26/17 17:18: POC Glucose (mg/dL) 129 H 11/26/17 12:50: [place] < 0.2 L 11/26/17 06:56: Urine Color Yellow, Urine Appearance Sl cloudy, Urine pH 6.0, Ur Specific [place] 1.025, Urine Protein Negative, Urine Glucose (UA) Negative, Urine Ketones Negative, Urine Blood Trace-intact H, Urine Nitrate Negative, Urine Bilirubin Negative, Urine Urobilinogen 0.2, Ur Leukocyte Esterase Moderate H, Urine RBC 0 - 2, Urine WBC 2 - 5, Ur Epithelial Cells 1 - 3, Urine Bacteria Rare 11/26/17 03:00: RPR Nonreactive 11/26/17 03:00: Free T4 1.34, TSH 3rd Generation 3.16 11/26/17 02:54: Urine Opiates Screen Negative, Urine Methadone Screen Negative, Ur Barbiturates Screen Negative, Ur Phencyclidine Scrn Negative, Ur Amphetamines Screen Negative, U Benzodiazepines Scrn Negative, U Oth Cocaine Metabols Negative, U Cannabinoids Screen Negative 11/26/17 02:50: Alcohol, Quantitative < 10 11/26/17 02:50: WBC 9.2, RBC 4.47, Hgb 13.7, Hct 40.9, MCV 91.5, MCH 30.6, MCHC 33.5, RDW 14.4, Plt Count 377, MPV 9.7 11/26/17 02:50: Sodium 142, Potassium 3.9, Chloride 102, Carbon Dioxide 27, Anion Gap 17, BUN 11, Creatinine 0.5 L, Est GFR ( Amer) > 60, Est GFR ( Non-Af Amer) > 60, Random Glucose 119 H, Calcium 10.2, Total Bilirubin 1.2, AST 39 H, ALT 50, Alkaline Phosphatase 98, Total Protein 8.5 H, Albumin 4.8, Globulin 3.8, Albumin/Globulin Ratio 1.3 Vital Signs Temp Pulse Resp BP Pulse Ox 11/26/17 16:00 68 133/67 11/26/17 07:23 58 L 16 164/78 H 100 11/26/17 02:25 98.1 F 60 17 160/87 H 100 Temp Pulse Resp BP Pulse Ox 97.9 F 66 20 112/67 100 11/30/17 07:07 11/30/17 07:07 11/30/17 07:07 11/30/17 07:07 11/26/17 07:23 Temp Pulse Resp BP Pulse Ox 97.9 F 58 L 20 112/59 L 100 12/02/17 07:50 12/02/17 16:16 12/02/17 07:50 12/02/17 16:16 11/26/17 07:23 Temp Pulse Resp BP Pulse Ox 97.7 F 64 20 122/79 100 12/03/17 07:45 12/03/17 10:34 12/03/17 07:45 12/03/17 10:34 11/26/17 07:23 Laboratory Results - last 24 hr 12/02/17 12/03/17 12/03/17 21:48 07:17 08:00 WBC RBC Hgb Hct MCV MCH MCHC RDW Plt Count MPV Gran % Lymph % (Auto) [place] % (Auto) Eos % (Auto) Baso % (Auto) Gran # Lymph # [place] # Eos # Baso # Sodium Potassium Chloride Carbon Dioxide Anion Gap BUN Creatinine Est GFR ( Amer) Est GFR (Non-Af Amer) POC Glucose (mg/dL) 136 H 76 Random Glucose Calcium Total Bilirubin AST ALT Alkaline Phosphatase Total Protein Albumin Globulin Albumin/Globulin Ratio Valproic Acid 87 12/03/17 12/03/17 12/03/17 09:30 10:30 10:30 WBC 5.9 RBC 4.05 Hgb 12.3 Hct 37.9 MCV 93.6 MCH 30.4 MCHC 32.5 RDW 14.2 Plt Count 248 MPV 10.4 Gran % 54.6 Lymph % (Auto) 37.5 H [place] % (Auto) 4.6 Eos % (Auto) 3.1 Baso % (Auto) 0.2 Gran # 3.20 Lymph # 2.2 [place] # 0.3 Eos # 0.2 Baso # 0.01 Sodium 139 Potassium 4.0 Chloride 102 Carbon Dioxide 25 Anion Gap 15 BUN 13 Creatinine 0.6 L Est GFR ( Amer) > 60 Est GFR (Non-Af Amer) > 60 POC Glucose (mg/dL) 95 Random Glucose 90 Calcium 9.7 Total Bilirubin 1.1 AST 27 ALT 36 Alkaline Phosphatase 70 Total Protein 6.9 Albumin 3.8 Globulin 3.1 Albumin/Globulin Ratio 1.3 Valproic Acid 12/03/17 11:30 WBC RBC Hgb Hct MCV MCH MCHC RDW Plt Count MPV Gran % Lymph % (Auto) [place] % (Auto) Eos % (Auto) Baso % (Auto) Gran # Lymph # [place] # Eos # Baso # Sodium Potassium Chloride Carbon Dioxide Anion Gap BUN Creatinine Est GFR ( Amer) Est GFR (Non-Af Amer) POC Glucose (mg/dL) 103 Random Glucose Calcium Total Bilirubin AST ALT Alkaline Phosphatase Total Protein Albumin Globulin Albumin/Globulin Ratio Valproic Acid Laboratory Results - last 24 hr 12/06/17 12/06/17 12/07/17 17:08 23:49 07:32 POC Glucose (mg/dL) 92 104 81 12/07/17 12/07/17 11:45 16:01 POC Glucose (mg/dL) 97 142 H Temp Pulse Resp BP Pulse Ox 98.6 F 54 L 18 95/48 L 100 12/07/17 07:13 12/07/17 10:19 12/07/17 07:13 12/07/17 10:19 12/07/17 07:13 Abnormal Lab Results 12/07/17 12/07/17 12/08/17 17:32 21:34 07:35 POC Glucose (mg/dL) 182 H 89 [place] 0.8 12/08/17 10:52 POC Glucose (mg/dL) 173 H [place] Temp Pulse Resp BP Pulse Ox 98.0 F 53 L 18 144/59 L 100 12/08/17 07:33 12/08/17 09:47 12/07/17 07:13 12/08/17 09:47 12/07/17 07:13 Temp Pulse Resp BP Pulse Ox 97.3 F L 51 L 20 143/57 L 100 12/09/17 07:37 12/09/17 09:54 12/09/17 07:37 12/09/17 09:54 12/07/17 07:13 Laboratory Results - last 24 hr 12/08/17 12/08/17 12/09/17 16:36 21:31 07:17 WBC RBC Hgb Hct MCV MCH MCHC RDW Plt Count MPV Gran % Lymph % (Auto) [place] % (Auto) Eos % (Auto) Baso % (Auto) Gran # Lymph # [place] # Eos # Baso # Sodium Potassium Chloride Carbon Dioxide Anion Gap BUN Creatinine Est GFR ( Amer) Est GFR (Non-Af Amer) POC Glucose (mg/dL) 130 H 129 H 90 Random Glucose Calcium Total Bilirubin AST ALT Alkaline Phosphatase Total Protein Albumin Globulin Albumin/Globulin Ratio 12/09/17 12/09/17 12/09/17 07:45 07:45 10:57 WBC 5.5 RBC 4.21 Hgb 12.8 Hct 38.4 MCV 91.2 MCH 30.4 MCHC 33.3 RDW 13.7 Plt Count 132 MPV 10.3 Gran % 51.2 Lymph % (Auto) 40.7 H [place] % (Auto) 5.5 Eos % (Auto) 2.4 Baso % (Auto) 0.2 Gran # 2.82 Lymph # 2.2 [place] # 0.3 Eos # 0.1 Baso # 0.01 Sodium 142 Potassium 4.3 Chloride 104 Carbon Dioxide 28 Anion Gap 14 BUN 9 Creatinine 0.6 L Est GFR ( Amer) > 60 Est GFR (Non-Af Amer) > 60 POC Glucose (mg/dL) 137 H Random Glucose 99 Calcium 10.2 Total Bilirubin 0.9 AST 24 ALT 28 Alkaline Phosphatase 80 Total Protein 7.3 Albumin 3.9 Globulin 3.4 Albumin/Globulin Ratio 1.2 Temp Pulse Resp BP Pulse Ox 97.9 F 57 L 20 115/52 L 100 12/15/17 08:05 12/15/17 09:42 12/15/17 08:05 12/15/17 09:42 12/07/17 07:13 DSM 5 Symptoms Update: This is a 56 years old female, multiple psychiatric admissions (more than 15), most recent was in [facility] in October 2017, pt who lives with her son and currently unemployed, came to the emergency room for psychiatric evaluation, pt most likely was noncompliant with medications, presented to be bizarre and disorganized, needed to have psych admission. pt was seen today at the treatment team meeting room, today was the first day when meaningful conversation is possible patient reported that she feels better, patient was compliant with evening dose of Seroquel extended-release, patient denied any side effects, patient is willing to continue on that medication. Patient was appreciated, patient had fair eye contact and affect was reactive. As per collateral information from staff patient had a good night sleep, no behavioral disturbances, patient deemed ready for discharge tomorrow. pediatric social worker wanted to refer patient to ICMS services, but patient already has ICMS worker. pt's gait is more steady. 12/03/17: pt was visited by [facility] [phone], pt has long h/o noncompliance, refused to go to [facility], lives with son, Janeen knows pt for about six months. 87 Depakote level 12/03/16 0.8 [place] level 12/03/16 Impression: schizoaffective, bipolar type Medication Change: Yes (seroquel ER 200mg hs) Medical Record Reviewed: Yes Consults ordered or reviewed: medical consult podiatry consult was called, appreciated Mental Status Examination - Cognitive Function Orientation: Person, Place Memory: Impaired Attention: Poor (some improvement) Concentration: Poor (some improvement) Association: Loose (some improvement) Fund of Knowledge: Poor - Mood Mood: Euphoric ("I feel much better, thank you doctora") - Affect Affect: Constricted (but reactive) - Speech Speech: Soft - Formal Thought Process Formal Thought Process: Hallucinations (denied today), Delusions, Paranoia, Loosening of associations (better organized), Circumstantial - Suicidal Ideation Suicidal Ideation: No - Homicidal Ideation Homicidal Ideation: No Goal/Treatment Plan - Goal/Treatment Plan Need for Continued Stay: Remain at risks for inpatient hospitalization, Severe depression anxiety, Discharge may exacerbated symptoms, Severe functional impairment Progress Toward Problem(s) and Goals/Treatment Plan: Supportive therapy, group therapy, individual therapy Haldol Dec 100mg IM [id number], last dose was ~11/25/17 Cogentin 1 mg by mouth two times a day for possible EPS [place] 300 mg PO am and 300mg hs for mood stabilization depakote d/c, pt was very drowsy Trazodone d/c pt was very drowsy seroquel ER 200mg po hs for disorganized thoughts neurontin d/c will continue all meds for medical issues SW consultation for discharge plan and social issues Family involvement, consider a family meeting Follow up on labs Will monitor closely Pt was educated about risk/benefits and alternatives of medications, coping strategies (safety plan, suicide prevention), relapse prevention, importance of follow up with psychiatrist and therapist, stay away from drugs/alcohol/smoking Estimated Date of D/C: 12/16/17
[2017-12-15] MEDS: OLANZapine 5 mg Disintegrating Tab PO SCH (21:19)
[2017-12-16 09:56] VITALS: BP 152/86; PULSE 72; RESP 22; TEMP 98.2
[2017-12-16] MEDS: Levothyroxine 88 MCG TAB PO SCH (10:45)
[2017-12-16] MEDS: Insulin Lispro (humaLOG) MEDIUM Coverage SC SCH (10:47)
--- NOTE | 2017-12-16 16:31 | PCM.PYCHDC ---
Mental Status Examination - Mental Status Examination Orientation: Person, Place, Situation Memory: Intact (much improvement) Mood: Neutral Affect: Constricted (but reactive, mood congruent) Speech: Slurred (but much improved) Attention: WNL (much improved) Concentration: WNL (much improved) Association: Loose (baseline) Fund of Knowledge: Poor (baseline) Formal Thought Process: Circumstantial (pt has residual symptoms of psychosis) Description of patient's judgement and insight: Pt has improved insight into mental and medical illness, pt was compliant with medications and unit rules and regulations, pt was going to groups, was calm, cooperative, socially appropriate, no behavioral incidents, no agitation, no aggression. Psychotic Thoughts and Behaviors: Pt denied v/a/t hallucinations, denied paranoid ideations, pt does not appear to be psychotic, and thought process is goal directed. Suicidal Ideation: No Current Homicidal Ideation?: No Plan: pt adamantly denied thoughts of harming self or others denied intent or plan. Discharge Summary - Discharge Note Reason for Hospitalization: pt was admitted for evaluation and stabilization of disorganized thoughts and behavior, pt also has manic symptoms, pt deemed to be in danger to self and others, required acute psychiatric care. Psychiatric History (includes Medical, Family, Personal Hx): see HPI Laboratory Data: Abnormal Lab Results 12/15/17 12/15/17 12/16/17 16:18 22:04 07:24 POC Glucose (mg/dL) 161 H 265 H 132 H 12/16/17 11:11 POC Glucose (mg/dL) 116 H 12/09/17 07:45 12/09/17 07:45 Lab Results 12/16/17 11:11: POC Glucose (mg/dL) 116 H 12/16/17 07:24: POC Glucose (mg/dL) 132 H 12/15/17 22:04: POC Glucose (mg/dL) 265 H 12/15/17 16:18: POC Glucose (mg/dL) 161 H 12/15/17 11:25: POC Glucose (mg/dL) 132 H 12/15/17 07:25: POC Glucose (mg/dL) 107 12/14/17 21:26: POC Glucose (mg/dL) 166 H 12/14/17 16:05: POC Glucose (mg/dL) 153 H 12/14/17 11:40: POC Glucose (mg/dL) 160 H 12/14/17 07:14: POC Glucose (mg/dL) 127 H 12/13/17 20:51: POC Glucose (mg/dL) 178 H 12/13/17 15:29: POC Glucose (mg/dL) 121 H 12/13/17 11:24: POC Glucose (mg/dL) 161 H 12/13/17 07:22: POC Glucose (mg/dL) 119 H 12/12/17 21:33: POC Glucose (mg/dL) 125 H 12/12/17 16:23: POC Glucose (mg/dL) 126 H 12/12/17 11:18: POC Glucose (mg/dL) 141 H 12/12/17 07:51: POC Glucose (mg/dL) 125 H 12/11/17 22:35: Urine Color Straw, Urine Appearance Clear, Urine pH 7.0, Ur Specific [place] <= 1.005, Urine Protein Negative, Urine Glucose (UA) Negative, Urine Ketones Negative, Urine Blood Negative, Urine Nitrate Negative, Urine Bilirubin Negative, Urine Urobilinogen 0.2, Ur Leukocyte Esterase Moderate H, Urine RBC Negative, Urine WBC 1 - 3, Ur Epithelial Cells 0 - 2, Urine Bacteria Neg 12/11/17 21:20: POC Glucose (mg/dL) 140 H 12/11/17 16:13: POC Glucose (mg/dL) 176 H 12/11/17 12:13: POC Glucose (mg/dL) 119 H 12/11/17 08:09: POC Glucose (mg/dL) 94 12/10/17 21:24: POC Glucose (mg/dL) 163 H 12/10/17 16:01: POC Glucose (mg/dL) 148 H 12/10/17 07:32: POC Glucose (mg/dL) 87 12/09/17 21:21: POC Glucose (mg/dL) 124 H 12/09/17 16:32: POC Glucose (mg/dL) 103 12/09/17 10:57: POC Glucose (mg/dL) 137 H 12/09/17 07:45: Sodium 142, Potassium 4.3, Chloride 104, Carbon Dioxide 28, Anion Gap 14, BUN 9, Creatinine 0.6 L, Est GFR ( Amer) > 60, Est GFR (Non -Af Amer) > 60, Random Glucose 99, Calcium 10.2, Total Bilirubin 0.9, AST 24, ALT 28, Alkaline Phosphatase 80, Total Protein 7.3, Albumin 3.9, Globulin 3.4, Albumin/Globulin Ratio 1.2 12/09/17 07:45: WBC 5.5, RBC 4.21, Hgb 12.8, Hct 38.4, MCV 91.2, MCH 30.4, MCHC 33.3, RDW 13.7, Plt Count 132, MPV 10.3, Gran % 51.2, Lymph % (Auto) 40.7 H, Stewart % (Auto) 5.5, Eos % (Auto) 2.4, Baso % (Auto) 0.2, Gran # 2.82, Lymph # 2.2 , Stewart # 0.3, Eos # 0.1, Baso # 0.01 12/09/17 07:17: POC Glucose (mg/dL) 90 12/08/17 21:31: POC Glucose (mg/dL) 129 H 12/08/17 16:36: POC Glucose (mg/dL) 130 H 12/08/17 10:52: POC Glucose (mg/dL) 173 H 12/08/17 07:35: POC Glucose (mg/dL) 89 12/07/17 21:34: POC Glucose (mg/dL) 182 H 12/07/17 17:32: [place] 0.8 12/07/17 16:01: POC Glucose (mg/dL) 142 H 12/07/17 11:45: POC Glucose (mg/dL) 97 12/07/17 07:32: POC Glucose (mg/dL) 81 12/06/17 23:49: POC Glucose (mg/dL) 104 12/06/17 17:08: POC Glucose (mg/dL) 92 12/06/17 11:19: POC Glucose (mg/dL) 139 H 12/06/17 07:54: POC Glucose (mg/dL) 96 12/05/17 21:19: POC Glucose (mg/dL) 144 H 12/05/17 16:11: POC Glucose (mg/dL) 120 H 12/05/17 11:24: POC Glucose (mg/dL) 136 H 12/05/17 07:46: POC Glucose (mg/dL) 89 12/04/17 21:45: POC Glucose (mg/dL) 133 H 12/04/17 11:37: POC Glucose (mg/dL) 122 H 12/04/17 07:30: Sodium 142, Potassium 4.2, Chloride 104, Carbon Dioxide 26, Anion Gap 16, BUN 12, Creatinine 0.7, Est GFR ( Amer) > 60, Est GFR (Non- Af Amer) > 60, Random Glucose 94, Calcium 9.9, Total Bilirubin 1.1, AST 23, ALT 28, Alkaline Phosphatase 76, Total Protein 7.4, Albumin 4.2, Globulin 3.3, Albumin/Globulin Ratio 1.3 12/03/17 21:45: POC Glucose (mg/dL) 152 H 12/03/17 16:47: POC Glucose (mg/dL) 151 H 12/03/17 11:30: POC Glucose (mg/dL) 103 12/03/17 10:30: Sodium 139, Potassium 4.0, Chloride 102, Carbon Dioxide 25, Anion Gap 15, BUN 13, Creatinine 0.6 L, Est GFR ( Amer) > 60, Est GFR ( Non-Af Amer) > 60, Random Glucose 90, Calcium 9.7, Total Bilirubin 1.1, AST 27, ALT 36, Alkaline Phosphatase 70, Total Protein 6.9, Albumin 3.8, Globulin 3.1, Albumin/Globulin Ratio 1.3 12/03/17 10:30: WBC 5.9, RBC 4.05, Hgb 12.3, Hct 37.9, MCV 93.6, MCH 30.4, MCHC 32.5, RDW 14.2, Plt Count 248, MPV 10.4, Gran % 54.6, Lymph % (Auto) 37.5 H, Stewart % (Auto) 4.6, Eos % (Auto) 3.1, Baso % (Auto) 0.2, Gran # 3.20, Lymph # 2.2 , Stewart # 0.3, Eos # 0.2, Baso # 0.01 12/03/17 09:30: POC Glucose (mg/dL) 95 12/03/17 08:00: Valproic Acid 87 12/03/17 07:17: POC Glucose (mg/dL) 76 12/02/17 21:48: POC Glucose (mg/dL) 136 H 12/02/17 15:37: POC Glucose (mg/dL) 256 H 12/02/17 11:52: POC Glucose (mg/dL) 100 12/02/17 07:21: POC Glucose (mg/dL) 97 12/01/17 22:05: POC Glucose (mg/dL) 114 H 12/01/17 16:19: POC Glucose (mg/dL) 144 H 12/01/17 11:20: POC Glucose (mg/dL) 127 H 12/01/17 07:24: POC Glucose (mg/dL) 90 11/30/17 21:15: POC Glucose (mg/dL) 142 H 11/30/17 11:40: POC Glucose (mg/dL) 137 H 11/30/17 07:09: POC Glucose (mg/dL) 106 11/29/17 21:11: POC Glucose (mg/dL) 106 11/29/17 16:24: POC Glucose (mg/dL) 94 11/29/17 12:42: POC Glucose (mg/dL) 126 H 11/29/17 07:18: POC Glucose (mg/dL) 144 H 11/28/17 21:54: POC Glucose (mg/dL) 127 H 11/28/17 16:20: POC Glucose (mg/dL) 108 11/28/17 11:50: POC Glucose (mg/dL) 104 11/28/17 11:00: [place] 0.8 11/28/17 07:00: Triglycerides 121, Cholesterol 165, LDL Cholesterol Direct 108, HDL Cholesterol 34 11/28/17 06:05: POC Glucose (mg/dL) 105 11/27/17 16:22: POC Glucose (mg/dL) 131 H 11/27/17 08:00: Sodium 136, Potassium 3.7, Chloride 103, Carbon Dioxide 23, Anion Gap 14, BUN 12, Creatinine 0.5 L, Est GFR ( Amer) > 60, Est GFR ( Non-Af Amer) > 60, Random Glucose 111 H, Calcium 9.6, Total Bilirubin 1.1, AST 29, ALT 44, Alkaline Phosphatase 88, Total Protein 7.4, Albumin 4.2, Globulin 3.2, Albumin/Globulin Ratio 1.3, Triglycerides 100, Cholesterol 167, LDL Cholesterol Direct 124, HDL Cholesterol 34 11/27/17 07:57: TSH 3rd Generation 2.67 11/27/17 07:56: WBC 6.7 D, RBC 4.08, Hgb 12.5, Hct 37.0, MCV 90.7, MCH 30.6, MCHC 33.8, RDW 14.4, Plt Count 305, MPV 9.3, Gran % 61.0, Lymph % (Auto) 31.8, Stewart % (Auto) 4.2, Eos % (Auto) 2.7, Baso % (Auto) 0.3, Gran # 4.08, Lymph # 2.1 , Stewart # 0.3, Eos # 0.2, Baso # 0.02 11/27/17 07:15: POC Glucose (mg/dL) 122 H 11/26/17 21:40: POC Glucose (mg/dL) 147 H 11/26/17 17:18: POC Glucose (mg/dL) 129 H 11/26/17 12:50: [place] < 0.2 L 11/26/17 06:56: Urine Color Yellow, Urine Appearance Sl cloudy, Urine pH 6.0, Ur Specific [place] 1.025, Urine Protein Negative, Urine Glucose (UA) Negative, Urine Ketones Negative, Urine Blood Trace-intact H, Urine Nitrate Negative, Urine Bilirubin Negative, Urine Urobilinogen 0.2, Ur Leukocyte Esterase Moderate H, Urine RBC 0 - 2, Urine WBC 2 - 5, Ur Epithelial Cells 1 - 3, Urine Bacteria Rare 11/26/17 03:00: RPR Nonreactive 11/26/17 03:00: Free T4 1.34, TSH 3rd Generation 3.16 11/26/17 02:54: Urine Opiates Screen Negative, Urine Methadone Screen Negative, Ur Barbiturates Screen Negative, Ur Phencyclidine Scrn Negative, Ur Amphetamines Screen Negative, U Benzodiazepines Scrn Negative, U Oth Cocaine Metabols Negative, U Cannabinoids Screen Negative 11/26/17 02:50: Alcohol, Quantitative < 10 11/26/17 02:50: WBC 9.2, RBC 4.47, Hgb 13.7, Hct 40.9, MCV 91.5, MCH 30.6, MCHC 33.5, RDW 14.4, Plt Count 377, MPV 9.7 11/26/17 02:50: Sodium 142, Potassium 3.9, Chloride 102, Carbon Dioxide 27, Anion Gap 17, BUN 11, Creatinine 0.5 L, Est GFR ( Amer) > 60, Est GFR ( Non-Af Amer) > 60, Random Glucose 119 H, Calcium 10.2, Total Bilirubin 1.2, AST 39 H, ALT 50, Alkaline Phosphatase 98, Total Protein 8.5 H, Albumin 4.8, Globulin 3.8, Albumin/Globulin Ratio 1.3 Vital Signs Temp Pulse Resp BP Pulse Ox 12/16/17 10:45 72 152/86 H 12/16/17 07:30 98.2 F 72 22 152/86 H 12/15/17 16:00 53 L 113/56 L 12/15/17 09:42 57 L 115/52 L 12/15/17 08:05 97.9 F 57 L 20 116/52 L 12/14/17 16:00 60 86/49 L 12/14/17 08:57 70 152/97 H 12/13/17 10:22 66 133/70 12/13/17 07:49 97.9 F 54 L 20 131/74 12/12/17 09:13 50 L 119/64 12/12/17 07:04 98.2 F 20 L 50 H 119/64 12/11/17 16:30 61 134/69 12/11/17 08:31 62 123/74 12/11/17 07:00 97.3 F L 56 L 18 12/10/17 16:30 62 137/79 12/10/17 10:11 52 L 115/91 H 12/10/17 07:44 97.9 F 52 L 20 115/91 H 12/09/17 16:30 58 L 126/74 12/09/17 09:54 51 L 143/57 L 12/09/17 07:37 97.3 F L 51 L 20 143/87 12/08/17 16:00 58 L 117/69 12/08/17 09:47 53 L 144/59 L 12/08/17 07:33 98.0 F 53 L 144/59 L 12/07/17 10:19 54 L 95/48 L 12/07/17 07:13 98.6 F 56 L 18 104/48 L 100 12/06/17 09:00 68 141/53 L 12/05/17 16:00 60 124/64 12/05/17 08:52 96 H 134/90 12/05/17 07:24 98.0 F 96 H 20 134/90 12/03/17 16:30 64 125/58 L 12/03/17 10:34 64 122/79 12/03/17 07:45 97.7 F 58 L 20 120/78 12/02/17 16:16 58 L 112/59 L 12/02/17 09:50 62 118/68 12/02/17 07:50 97.9 F 54 L 20 118/68 12/01/17 16:02 60 99/74 L 11/30/17 07:07 97.9 F 66 20 112/67 11/29/17 08:23 62 117/72 11/29/17 07:49 97.9 F 62 20 117/72 11/28/17 08:08 73 137/66 11/26/17 16:00 68 133/67 11/26/17 07:23 58 L 16 164/78 H 100 11/26/17 02:25 98.1 F 60 17 160/87 H 100 EKG WNL CXR WNL Consultations:: List each consultation separately and include: 1. Reason for request. 2. Findings. 3. Follow-up Consultations: medical consult podiatry consult was called, appreciated Summary of Hospital Course include:: 1. Description of specific treatment plan utilized for patients during their course of treatmen. 2. Summarize the time- course for resolution of acute symptoms and/or regressed behaviors. 3. Describe issues identified and worked on during hospitalization. 4. Describe medication utilized. 5. Describe medical problems identified and treated. 6. Reassessment of suicide risk Summary of Hospital Course: This is a 56 years old female, multiple psychiatric admissions (more than 15), most recent was in [facility] in October 2017, pt who lives with her son and currently unemployed, came to the emergency room for psychiatric evaluation, pt most likely was noncompliant with medications, presented to be bizarre and disorganized, needed to have psych admission. initially pt was seen at the dinning area with Medical student, pt is Khmer speaking and this fiction and nonfiction prose writer utilized translation system [id number] pt presented with acceptable personal hygiene, good ADLs, pt presented to be disorganized, was laughing out loud with no obvious reasons, answers were not related to questions being asked, pt also presented with circumstantial and tangential thought process, but denied v/a/t hallucinations. For example:"I am single mother, I have a dementia, I suffer from sleeping problems, I also have financial problems, I need to call [employer], when I am not well I sing or dance " pt had difficulties to stay focused, circumstantial and tangential thought process. pt denied being abused. pt denied feeing depress, but seems to be in manic stage, reported to feel irritable. pt denied using drugs, denied smoking since 2010. Past Psychiatric h/o: [facility] 10/2017 [facility] [place]-09/06/24 psych. Chronic non compliant with follow up and meds Pt was referred screener on 10/22, they were unable to locate pt for demonstrating bizarre behavior in the neighborhood. [facility] screening unit received another call on 11/20 about Pt, but because she was not a harm to self or others she was not admitted tot hospital. h/o of elopement from the hospital. Pt goes by several names Angélica Suarez, and has several listed addresses as per [facility]. as per report from pt's pharmacy pt was on the following meds [id number]: prescribe by Kam, last refilled November 19, thirty days supply was given, two refills left [place] 300 mg 3 times a day Haldol 5 mg twice a day Benztropine 1 mg twice a pt said that she is on Haldol Injectable form, does not know when was the last injection, but it was confirmed by it was given couple of days before this admission. prescribed by Dr.Leslie Alfonso: Metformin extended release 500mg po bid Levemir 10 units am crestor 10mg po daily Levothyroxine 88mcg po daily Losartan 50mg po daily Medical h/o: DM Hypothyroidism HTN Family h/o: unknown 11/26/17 02:50 11/26/17 02:50 Lab Results 11/26/17 12:50: [place] < 0.2 L 11/26/17 06:56: Urine Color Yellow, Urine Appearance Sl cloudy, Urine pH 6.0, Ur Specific [place] 1.025, Urine Protein Negative, Urine Glucose (UA) Negative, Urine Ketones Negative, Urine Blood Trace-intact H, Urine Nitrate Negative, Urine Bilirubin Negative, Urine Urobilinogen 0.2, Ur Leukocyte Esterase Moderate H, Urine RBC 0 - 2, Urine WBC 2 - 5, Ur Epithelial Cells 1 - 3, Urine Bacteria Rare 11/26/17 03:00: Free T4 1.34, TSH 3rd Generation 3.16 11/26/17 02:54: Urine Opiates Screen Negative, Urine Methadone Screen Negative, Ur Barbiturates Screen Negative, Ur Phencyclidine Scrn Negative, Ur Amphetamines Screen Negative, U Benzodiazepines Scrn Negative, U Oth Cocaine Metabols Negative, U Cannabinoids Screen Negative 11/26/17 02:50: Alcohol, Quantitative < 10 11/26/17 02:50: WBC 9.2, RBC 4.47, Hgb 13.7, Hct 40.9, MCV 91.5, MCH 30.6, MCHC 33.5, RDW 14.4, Plt Count 377, MPV 9.7 11/26/17 02:50: Sodium 142, Potassium 3.9, Chloride 102, Carbon Dioxide 27, Anion Gap 17, BUN 11, Creatinine 0.5 L, Est GFR ( Amer) > 60, Est GFR ( Non-Af Amer) > 60, Random Glucose 119 H, Calcium 10.2, Total Bilirubin 1.2, AST 39 H, ALT 50, Alkaline Phosphatase 98, Total Protein 8.5 H, Albumin 4.8, Globulin 3.8, Albumin/Globulin Ratio 1.3 Vital Signs Temp Pulse Resp BP Pulse Ox 11/26/17 07:23 58 L 16 164/78 H 100 11/26/17 02:25 98.1 F 60 17 160/87 H 100 during this prolonged hospitalization, pt was developed parkinson's symptoms, unstable gate, pt was d/c on Haldol pt was not doing well, was not sleeping, was in her manic stage, Depakote was added, pt became very drowsy, was not able to maintained the interview. pt's neurontin was d/c because of drowsiness. pt was tried on seroquel, but pt did not tolerate it well, had slurry speech, sleepiness. pt was started on Zyprexa zydis at hs, which she tolerated well. overall pt was stabilized on the following medications: Haldol Dec 100mg IM [id number], last dose was ~11/25/17 Cogentin 1 mg by mouth two times a day for possible EPS [place] 300 mg PO am and 300mg hs for mood stabilization zyprexa 5mg po hs for psychosis pt tolerated meds well, no side effects observed or reported, AIMS 0, no EPS. pt was seen by medical and podiatry teams ICMS worker was involved, son involved, as per son pt is at her baseline of functioning. Over the course of this hospitalization pt was attending groups, pt also had medication management, had therapeutic milieu. Overall pt improved significantly, pt's affect became brighter, pt was less depressed, has realistic future oriented plans, pt also does not appear to be psychotic, or anxious, pt was socially appropriate, no behavioral issues, pts insight improved as well and soon pt deemed to be ready for discharge. At the time of the discharge pt denied been depressed, denied thoughts of harming self or others, denied psychotic symptoms, and pt does not appeared to be psychotic, denied been anxious, pt is not in imminent danger to self or others, will be following up at [facility], information about follow up appointment, time and address provided to the pt, it is patient responsibility to follow up with outpatient clinic, PMD as well as specialists ( see SW note for more detailed information). In case pt will need to obtain results of studies pending at discharge pt was provided with contact information of Psychiatric Inpatient unit [phone] as well as Medical Record Department [phone]. pt does not use any drugs, denied smoking. pt was provided with prescriptions for all of medications (please see medication reconciliation form) Pt was educated about safety plan in case of worsening of symptoms or in case of suicidal or homicidal ideation call 911 or go to the nearest ER, also was educated to take meds as prescribed and stay away from drugs, pt verbalized understanding. - Diagnosis (1) Schizoaffective disorder, bipolar type Status: Acute Priority: High - Final Diagnosis (DSM 5) Condition upon Discharge: STABLE Disposition: HOME/ ROUTINE Follow-up Treatment Plan: At the time of the discharge pt denied been depressed, denied thoughts of harming self or others, denied psychotic symptoms, and pt does not appeared to be psychotic, denied been anxious, pt is not in imminent danger to self or others, will be following up at [facility], information about follow up appointment, time and address provided to the pt, it is patient responsibility to follow up with outpatient clinic, PMD as well as specialists ( see SW note for more detailed information). In case pt will need to obtain results of studies pending at discharge pt was provided with contact information of Psychiatric Inpatient unit [phone] as well as Medical Record Department [phone]. pt does not use any drugs, denied smoking. pt was provided with prescriptions for all of medications (please see medication reconciliation form) Pt was educated about safety plan in case of worsening of symptoms or in case of suicidal or homicidal ideation call 911 or go to the nearest ER, also was educated to take meds as prescribed and stay away from drugs, pt verbalized understanding. Prescriptions/Medication Reconciliation: Haloperidol Decanoate [Haldol Decanoate] 100 mg IM Q30D #1 amp RX: Benztropine [Cogentin] 1 mg PO BID #30 tab RX: Levothyroxine [Synthroid] 88 mcg PO 0600 #7 tab RX: [place] Carbonate [[place] Carbonate 300MG] 300 mg PO AMHS #30 cap RX: Losartan [Cozaar] 50 mg PO DAILY #7 tab RX: metFORMIN [glucOPHAGE] 500 mg PO BID #15 tab RX: OLANZapine [Zyprexa Zydis] 5 mg PO HS #14 odt - Smoking Cessation Smoking Cessation Medication prescribed: No Reason for not providing: pt deneid smoking - Antipsychotic Medications Pt discharged on 2 or more routine antipsychotic medications: Yes - Justification for 2 or more meds Failed 3 or more trials of Monotherapy: List medications: pt was tried on seroquel, on Haldol, and prolixin before. at present moment was not able to tolerae Haldol Decanoate and PO Haldol due to Parkinsonian symptoms, this fiction and nonfiction prose writer implemented Zyprexa, which tolerated well, d/c Haldol Dec is up to outpatient psychiatrist. monotherapy considered zyprexa or clozaril.
== END 2017-12-16 15:16 | disposition home or self-care (01) | DRG 885 ==
LOC: ED 02:05 → ERH 06:12 → PSYC 09:10
PROVIDERS: ADMIT Psychiatry & Neurology Psychiatry; ATTEND Psychiatry & Neurology Psychiatry
PROC: GZ3ZZZZ Medication Management (ICD-10-PCS; principal; 2017-11-26)
PROC: 0HBRXZZ Excision of Toe Nail, External Approach (ICD-10-PCS; 2017-11-27)
PROC: 0HBRXZZ Excision of Toe Nail, External Approach (ICD-10-PCS; 2017-11-27)
PROC: 0HBRXZZ Excision of Toe Nail, External Approach (ICD-10-PCS; 2017-11-27)
PROC: 0HBRXZZ Excision of Toe Nail, External Approach (ICD-10-PCS; 2017-11-27)
PROC: 0HBRXZZ Excision of Toe Nail, External Approach (ICD-10-PCS; 2017-11-27)
PROC: 0HBRXZZ Excision of Toe Nail, External Approach (ICD-10-PCS; 2017-11-27)
PROC: 0HBRXZZ Excision of Toe Nail, External Approach (ICD-10-PCS; 2017-11-27)
PROC: 0HBRXZZ Excision of Toe Nail, External Approach (ICD-10-PCS; 2017-11-27)
PROC: 0HBRXZZ Excision of Toe Nail, External Approach (ICD-10-PCS; 2017-11-27)
PROC: 0HBRXZZ Excision of Toe Nail, External Approach (ICD-10-PCS; 2017-11-27)
DX: F25.0 Schizoaffective disorder, bipolar type (principal); E11.42 Type 2 diabetes mellitus with diabetic polyneuropathy; Z91.14 Patient's other noncompliance with medication regimen; Z91.19 Patient's noncompliance with other medical treatment and regimen; F06.30 Mood disorder due to known physiological condition, unspecified; E03.9 Hypothyroidism, unspecified; I10 Essential (primary) hypertension; E78.00 Pure hypercholesterolemia, unspecified; L85.9 Epidermal thickening, unspecified; G47.00 Insomnia, unspecified; Z87.891 Personal history of nicotine dependence; Z80.0 Family history of malignant neoplasm of digestive organs; Z83.3 Family history of diabetes mellitus; Z90.49 Acquired absence of other specified parts of digestive tract